=== PATIENT | female | born 1985 | race Caucasian/White ===

== ENCOUNTER 2016-05-29 08:09 | Emergency (ER) | payer BC ==
[2016-05-29 09:28] LABS: BASO # 0.1 K/mm3 (0.0-0.2); BASO % 2.2 % (0.0-1.0); EOS % 0.9 % (0.0-3.0); LARGE UNSTAINED CELL # 0.1 K/mm3 (0.0-0.4); LARGE UNSTAINED CELL % 2.7 % (0.0-4.0); LYMPH # 1.5 K/mm3 (1.5-4.5); LYMPH % 27.6 % (24.0-44.0); MEAN CORPUSCULAR HEMOGLOBIN 28.5 pg (27.0-33.0); MEAN CORPUSCULAR HGB CONC 32.8 g/dl (32.0-36.5); MEAN CORPUSCULAR VOLUME 87.1 fl (80.0-96.0); MONO # 0.3 K/mm3 (0.0-0.8); NEUTROPHILS % 60.7 % (36.0-66.0); PLATELET COUNT, AUTOMATED 278 k/mm3 (150-450); RED CELL DISTRIBUTION WIDTH 13.1 % (11.5-14.5); WHITE BLOOD COUNT 4.9 K/mm3 (4.0-10.0)
[2016-05-29 09:41] LABS: CONTROL LINE HCG INT CTR LINE PRESENT
[2016-05-29 09:43] LABS: ANION GAP 8 MEQ/L (8-16); BLOOD UREA NITROGEN 9 MG/DL (7-18); CALCIUM LEVEL 8.2 MG/DL (8.5-10.1); CARBON DIOXIDE LEVEL 27 MEQ/L (21-32); CHLORIDE LEVEL 106 MEQ/L (98-107); CREATININE FOR GFR 0.58 MG/DL (0.55-1.02); GLOMERULAR FILTRATION RATE > 60.0 (>60); GLUCOSE, FASTING 87 MG/DL (70-105); POTASSIUM SERUM 3.9 MEQ/L (3.5-5.1); SODIUM LEVEL 141 MEQ/L (136-145)
[2016-05-29 10:17] LABS: HCG, SERUM QUANTITATIVE 2187 MIU/ML
--- NOTE | 2016-05-29 10:48 | REP ---
EMERGENCY FIRST TRIMESTER OBSTETRIC SONOGRAPHY: HISTORY: Vaginal bleeding. Transvaginal and transabdominal scanning are performed. FINDINGS: A retroverted empty uterus is seen with dimensions of 6.5 x 3.9 x 5.1 cm. Endometrial echo measures 0.4 cm thick. No intrauterine gestational sac is seen. There is a trace of anechoic fluid in the cul-de-sac and adjacent right ovary. The right ovary measures 3.4 x 2.0 x 2.8 cm. It shows normal Doppler flow with resistive index 0.55. No adnexal mass is seen on the right. The left ovary measures 4.8 x 2.1 x 3.9 cm. Its Doppler flow is intact, resistive index 0.63. There is a hypoechoic cyst in the left ovary 1.9 x 1.8 x 1.4 cm. IMPRESSION: Nonspecific sonographic findings: Trace of free fluid in the cul-de-sac. No intrauterine gestational sac. No adnexal mass seen. Clinical and possibly sonographic followup recommended. Signed by Salvador Acosta MD 05/29/2016 01:18 P
--- NOTE | 2016-05-29 11:13 | EDDOCDS ---
Physician Documentation [facility] Name: Mary Neal Age: 30 yrs Sex: Female : 1985 Arrival Date: 05/29/2016 Time: 08:09 Bed 13 Private MD: Disposition: 05/29/16 10:53 Discharged to Home/Self Care. Impression: Threatened . - Condition is Stable. - Discharge Instructions: Threatened Miscarriage. - Medication Reconciliation, Local Pharmacy Hours form. - Follow up: Brendan Finn; When: As previously arranged; Reason: Recheck today's complaints, Continuance of care. - Problem is new. - Symptoms are unchanged. - Notes: You were evaluated in the emergency department for vaginal bleeding. A test was positive. A quantitative b-hCG reported a value of 2187. At time of discharge you have been provided a laboratory order to have the quantitative b-hCG repeated in 48-hours at 9:14am on , 05/31/2016. Your laboratory results reported no acute changes. An ultrasound reported no intrauterine gestational sac. Please call Dr. Finn's office at your soonest convenience and speak with a nurse to arrange a sooner appointment. Keep your appointment with Dr. Finn's office as previously arranged. If your pain worsens or does not improve and/or if your vaginal bleeding persists or gets worse please do not hesitate to return to the ED. Historical: - Allergies: PENICILLINS; - Home Meds: 1. Oral daily - PMHx: fertility treatments; - PSHx: Gastric Bypass (2012); - Social history: Smoking status: Patient states former smoker of tobacco. No barriers to communication noted, The patient speaks fluent Japanese, Speaks appropriately for age. - Family history: Not pertinent. - : The pt / caregiver states he / she is not on anticoagulants. Home medication list is obtained from the patient. - Exposure Risk Screening:: None identified. 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 3 in. (160.02 cm); 11:07 BP 107 / 66; Pulse 54; Resp 18; Temp 99.2(O); Pulse Ox 99% on R/A; Pain 0/10; ck1 08:23 Body Mass Index 31.18 (79.83 kg, 160.02 cm) kr3 MDM: 08:36 Set up pelvic ordered. jo4 08:37 Wet Prep Ordered. EDMS 09:03 UA Ordered. EDMS 09:03 CBC with Diff Ordered. EDMS 09:03 BMP Ordered. EDMS 09:03 HCG,Serum Qualitative Ordered. EDMS 09:04 Chlamydia & GC Amplification Ordered. EDMS 09:16 Rh Only Ordered. EDMS 09:36 UA Reviewed. sd1 09:36 CBC with Diff Reviewed. sd1 09:36 Wet Prep Reviewed. sd1 09:36 Rh Only Reviewed. sd1 09:44 BMP Reviewed. sd1 09:44 HCG,Serum Qualitative Reviewed. sd1 09:47 Ultrasound 1st Trimester Ordered. EDMS 09:51 HCG, SERUM QUANTITATIVE Ordered. EDMS 09:55 BMP Reviewed. sd1 09:55 HCG,Serum Qualitative Reviewed. sd1 10:21 DUPLEX SCAN LIMITED (DOPPLER) Ordered. EDMS 10:21 TRANSVAGINAL US Ordered. EDMS 10:22 HCG, SERUM QUANTITATIVE Reviewed. jo4 11:04 [facility] Payment Agreement was scanned into [employer] and attached to record. jp5 11:04 Financial registration complete. jp5 Signatures: Dispatcher [facility] Sofia Nino MD MD sd1 Phyllis Hernandez RN RN ck1 Tiffany Drew,RN RN kr3 Michael Saenz jp5 Mily Gaitan DO DO jo4 The chart was reviewed and I authenticate all verbal orders and agree with the evaluation and treatment provided.Corrections: (The following items were deleted from the chart) 09:50 09:45 HCG, SERUM QUANTITATIVE+LAB ordered. EDCO EDMS Attachments: 11:04 [facility] Payment Agreement jp5 MTDD
--- NOTE | 2016-05-29 11:13 | EDDOCDS ---
Nurse's Notes [facility] Name: Mary Neal Age: 30 yrs Sex: Female : 1985 Arrival Date: 05/29/2016 Time: 08:09 Bed 13 Private MD: Diagnosis: Threatened Presentation: 05/29 08:21 Presenting complaint: Patient states: may be having miscarriage. reports vaginal kr3 bleeding for 1 month, today increase bleeding. Adult Sepsis Screening: The patient does not have new or worsening altered mentation. Patient's respiratory rate is less than 22. Systolic blood pressure is greater than 100. Patient has a qSOFA score of 0- Negative Sepsis Screen. Suicide/Homicide risk assessment- the patient denies having any suicidal and/or homicidal ideations and does not present with any other emotional, behavioral or mental health complaints. Status: Patient is not a manager customer service or dependent. Transition of care: patient was not received from another setting of care. 08:21 Acuity: BHAVANA Level 3 kr3 08:21 Method Of Arrival: Walkin/Carried/Asstd kr3 Triage Assessment: 08:23 General: Appears in no apparent distress, comfortable, Behavior is cooperative. Pain: kr3 Pain currently is 7 out of 10 on a pain scale. Quality of pain is described as crampy. HIV screening NA for this visit Offered previously. Neurological: No deficits noted. Respiratory: Respiratory effort is even, unlabored. : Reports vaginal bleeding that is light flow. Derm: Skin is pink, warm & dry. 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 Oral daily - PMHx: fertility treatments; - PSHx: Gastric Bypass (2012); - Social history: Smoking status: Patient states former smoker of tobacco. No barriers to communication noted, The patient speaks fluent Irish, Speaks appropriately for age. - Family history: Not pertinent. - : The pt / caregiver states he / she is not on anticoagulants. Home medication list is obtained from the patient. - Exposure Risk Screening:: None identified. Screenin:03 Screening information is obtained from the patient. Fall risk: No risks identified. ck1 Assistance ADL's: requires no assistance with activities of daily living. Abuse/DV Screen: The patient / caregiver reports he/she is: not in a situation that causes fear, pain or injury. Nutritional screening: No deficits noted. Advance Directives: Currently, there is no health care proxy. home support is adequate. Assessment: 09:03 General: Appears in no apparent distress, comfortable, Behavior is appropriate for age, ck1 cooperative. Pain: Denies pain. Respiratory: No deficits noted. : Reports vaginal bleeding that is light flow Denies burning with urination. Derm: Skin is pink, warm & dry. 10:00 Reassessment: Patient appears in no apparent distress at this time. ck1 11:11 General: Appears in no apparent distress, comfortable, Behavior is appropriate for age, ck1 cooperative. Pain: Denies pain. Neurological: Level of Consciousness is awake, alert, obeys commands, Oriented to person, place, time. Respiratory: Respiratory effort is unlabored, Respiratory pattern is regular, symmetrical. : Reports vaginal bleeding that is light flow. Derm: Skin is pink, warm & dry. Vital Signs: 08:23 BP 123 / 69; Pulse 94; Resp 16; Temp 97.6; Pulse Ox 98% on R/A; Weight 79.83 kg (R); kr3 Height 5 ft. 3 in. (160.02 cm); 11:07 BP 107 / 66; Pulse 54; Resp 18; Temp 99.2(O); Pulse Ox 99% on R/A; Pain 0/10; ck1 08:23 Body Mass Index 31.18 (79.83 kg, 160.02 cm) kr3 Vitals: 08:23 Log In Time: May 29, 2016 at 08:06. kr3 ED Course: 08:11 Patient visited by Maik Gutierrez. mm15 08:11 Patient moved to Waiting mm15 08:22 Triage Initiated kr3 08:26 Janell Siegel,RN is Primary Nurse. kr3 08:26 Phyllis Hernandez,LANCE is Primary Nurse. kr3 08:26 Patient moved to 13 kr3 08:27 [facility] jo4 08:27 Sofia Nino MD is Attending Physician. jo4 08:37 Patient visited by Mily Gaitan DO. jo4 08:37 Patient visited by Mily Gaitan DO. jo4 09:03 Patient visited by Phyllis Hernandez,LANCE. ck1 09:04 The patient / caregiver is instructed regarding the plan of care and ED course. ck1 09:13 Primary Nurse role handed off by Janell Siegel,RN kr3 09:18 Patient visited by Phyllis Hernandez,RN. ck1 09:18 Rh Only Sent. ck1 09:18 Chlamydia & GC Amplification Sent. ck1 09:18 HCG,Serum Qualitative Sent. ck1 09:18 BMP Sent. ck1 09:18 CBC with Diff Sent. ck1 09:18 UA Sent. ck1 09:18 Wet Prep Sent. ck1 09:18 Assist provider with pelvic exam: Set up pelvic tray. Specimens sent to lab. Performed ck1 by Mily Gaitan DO Patient tolerated well. 09:51 Patient visited by Phyllis Hernandez,LANCE. ck1 09:51 HCG, SERUM QUANTITATIVE Sent. ck1 09:52 Patient moved to Ultrasound en 10:17 Patient moved to 13 en 10:27 Patient visited by Phyllis Hernandez,LANCE. ck1 10:53 Brendan Finn MD is Referral Physician. jo4 11:04 [facility] Payment Agreement was scanned into [employer] and attached to record. jp5 11:04 Ultrasound 1st Trimester Returned. EDMS 11:07 No IV's were initiated during this patient's visit. ck1 Order Results: Lab Order: Wet Prep; SPEC'M 05/29/16 09:14 Test: WET PREP; Value: WET PREP RESULT; Status: F Test: WET PREP; Value: FEW EPITHELIAL CELLS PRESENT; Status: F Test: WET PREP; Value: FEW RBC; Status: F Test: WET PREP; Value: MODERATE SHORT RODS PRESENT; Status: F Lab Order: UA; SPEC'M 05/29/16 09:14 Test: APPEARANCE, URINE; Value: CLEAR; Range: CLEAR; Status: F Test: COLOR, URINE; Value: YELLOW; Range: YELLOW; Status: F Test: PH,URINE; Value: 7.0; Range: 5.0-9.0; Units: UNITS; Status: F Test: SPECIFIC GRAVITY URINE AUTO; Value: 1.011; Range: 1.002-1.035; Status: F Test: PROTEIN, URINE AUTO; Value: NEGATIVE; Range: NEGATIVE; Units: mg/dL; Status: F Test: GLUCOSE, URINE (UA) AUTO; Value: NEGATIVE; Range: NEGATIVE; Units: mg/dL; Status: F Test: KETONE, URINE AUTO; Value: NEGATIVE; Range: NEGATIVE; Units: mg/dL; Status: F Test: UROBILINOGEN, URINE AUTO; Value: 0.2; Range: 0.0-2.0; Units: mg/dL; Status: F Test: BILIRUBIN, URINE AUTO; Value: NEGATIVE; Range: NEGATIVE; Status: F Test: NITRITE, URINE AUTO; Value: NEGATIVE; Range: NEGATIVE; Status: F Test: LEUKOCYTE ESTERASE, URINE AUTO; Value: NEGATIVE; Range: NEGATIVE; Status: F Test: BLOOD, URINE BLOOD; Value: 2+; Range: NEGATIVE; Abnormal: Above high normal; Status: F Test: WBC, URINE AUTO; Value: 1; Range: 0-3; Units: /HPF; Status: F Test: RBC, URINE AUTO; Value: 5; Range: 0-3; Abnormal: Above high normal; Units: /HPF; Status: F Test: BACTERIA, URINE AUTO; Value: 1+; Range: NEGATIVE; Abnormal: Above high normal; Status: F Test: SQUAMOUS EPITHELIAL CELL UR AU; Value: 3; Range: 0-6; Units: /HPF; Status: F Test: MUCUS, URINE; Value: SMALL; Range: NEGATIVE; Status: F Test: HYALINE CAST, URINE AUTO; Value: 0; Range: 0-1; Units: /LPF; Status: F Lab Order: CBC with Diff; SPEC'M 05/29/16 09:14 Test: WHITE BLOOD COUNT; Value: 4.9; Range: 4.0-10.0; Units: K/mm3; Status: F Test: RED BLOOD COUNT; Value: 4.53; Range: 4.00-5.40; Units: M/mm3; Status: F Test: HEMOGLOBIN; Value: 12.9; Range: 12.0-16.0; Units: g/dl; Status: F Test: HEMATOCRIT; Value: 39.5; Range: 36.0-47.0; Units: %; Status: F Test: MEAN CORPUSCULAR VOLUME; Value: 87.1; Range: 80.0-96.0; Units: fl; Status: F Test: MEAN CORPUSCULAR HEMOGLOBIN; Value: 28.5; Range: 27.0-33.0; Units: pg; Status: F Test: MEAN CORPUSCULAR HGB CONC; Value: 32.8; Range: 32.0-36.5; Units: g/dl; Status: F Test: RED CELL DISTRIBUTION WIDTH; Value: 13.1; Range: 11.5-14.5; Units: %; Status: F Test: PLATELET COUNT, AUTOMATED; Value: 278; Range: 150-450; Units: k/mm3; Status: F Test: NEUTROPHILS %; Value: 60.7; Range: 36.0-66.0; Units: %; Status: F Test: LYMPH %; Value: 27.6; Range: 24.0-44.0; Units: %; Status: F Test: MONO %; Value: 6.0; Range: 0.0-5.0; Abnormal: Above high normal; Units: %; Status: F Test: EOS %; Value: 0.9; Range: 0.0-3.0; Units: %; Status: F Test: BASO %; Value: 2.2; Range: 0.0-1.0; Abnormal: Above high normal; Units: %; Status: F Test: LARGE UNSTAINED CELL %; Value: 2.7; Range: 0.0-4.0; Units: %; Status: F Test: NEUTROPHILS #; Value: 3.0; Range: 1.8-7.7; Units: K/mm3; Status: F Test: LYMPH #; Value: 1.5; Range: 1.5-4.5; Units: K/mm3; Status: F Test: MONO #; Value: 0.3; Range: 0.0-0.8; Units: K/mm3; Status: F Test: EOS #; Value: 0.0; Range: 0.0-0.50; Units: K/mm3; Status: F Test: BASO #; Value: 0.1; Range: 0.0-0.2; Units: K/mm3; Status: F Test: LARGE UNSTAINED CELL #; Value: 0.1; Range: 0.0-0.4; Units: K/mm3; Status: F Lab Order: [facility]; SPEC05/29/16 09:14 Test: GLUCOSE, FASTING; Value: 87; Range: 70-105; Units: MG/DL; Status: F Test: BLOOD UREA NITROGEN; Value: 9; Range: 7-18; Units: MG/DL; Status: F Test: CREATININE FOR GFR; Value: 0.58; Range: 0.55-1.02; Units: MG/DL; Status: F Test: GLOMERULAR FILTRATION RATE; Value: > 60.0; Range: >60; Status: F Test: SODIUM LEVEL; Value: 141; Range: 136-145; Units: MEQ/L; Status: F Test: POTASSIUM SERUM; Value: 3.9; Range: 3.5-5.1; Units: MEQ/L; Status: F Test: CHLORIDE LEVEL; Value: 106; Range: 98-107; Units: MEQ/L; Status: F Test: CARBON DIOXIDE LEVEL; Value: 27; Range: 21-32; Units: MEQ/L; Status: F Test: ANION GAP; Value: 8; Range: 8-16; Units: MEQ/L; Status: F Test: CALCIUM LEVEL; Value: 8.2; Range: 8.5-10.1; Abnormal: Below low normal; Units: MG/DL; Status: F Test Note: ; Units are mL/min/1.73 m2 Chronic Kidney Disease Staging per NKF: Stage I & II GFR >=60 Normal to Mildly Decreased Stage III GFR 30-59 Moderately Decreased Stage IV GFR 15-29 Severely Decreased Stage V GFR <15 Very Little GFR Left ESRD GFR <15 on SEASONAL SALES ASSOCIATE Lab Order: HCG,Serum Qualitative; 05/29/16 09:14 Test: HCG, SERUM QUALITATIVE; Value: POSITIVE; Range: NEGATIVE; Abnormal: Abnormal; Status: F Lab Order: Rh Only; 05/29/16 09:14 Test: RH; Value: POSITIVE; Status: F Lab Order: HCG, SERUM QUANTITATIVE; 05/29/16 09:14 Test: HCG, SERUM QUANTITATIVE; Value: 2187; Units: MIU/ML; Status: F Test Note: ; GESTATIONAL AGE APPROXIMATE HCG RANGE (MIU/ML) 0.2-1 WEEK 5-50 1-2 WEEKS 50-500 2-3 WEEKS 100-5,000 3-4 WEEKS 500-10,000 4-5 WEEKS 1,000-50,000 5-6 WEEKS 10,000-100,000 6-8 WEEKS 15,000-200,000 2-3 MONTHS 10,000-100,000 NON FEMALES LESS THAN 3.0 Patient samples may contain human heterophilic antibodies that could react with immunoassays to give falsely elevated or depressed results. This assay has been designed to minimize interference from heterophilic antibodies. Elevated hCG levels have also been associated with trophoblastic disease and nontrophoblastic neoplasms. The possibility of having these diseases should be considered before a diagnosis of is made. This test is not intended for use as a surrogate marker for aiding in the diagnosis or monitoring the treatment of cancer patients. Siemens BigString methodology. Radiology Order: Ultrasound 1st Trimester Test: Ultrasound 1st Trimester REASON FOR EXAMINATION: Bleeding; EMERGENCY FIRST TRIMESTER OBSTETRIC SONOGRAPHY:; ; HISTORY: Vaginal bleeding.; ; Transvaginal and transabdominal scanning are performed.; ; FINDINGS: A retroverted empty uterus is seen with dimensions of 6.5 x 3.9 x 5.1; cm. Endometrial echo measures 0.4 cm thick. No intrauterine gestational sac is; seen. There is a trace of anechoic fluid in the cul-de-sac and adjacent right; ovary. The right ovary measures 3.4 x 2.0 x 2.8 cm. It shows normal Doppler; flow with resistive index 0.55. No adnexal mass is seen on the right.; ; The left ovary measures 4.8 x 2.1 x 3.9 cm. Its Doppler flow is intact,; resistive index 0.63. There is a hypoechoic cyst in the left ovary 1.9 x 1.8 x; 1.4 cm.; ; IMPRESSION:; Nonspecific sonographic findings: Trace of free fluid in the cul-de-sac. No; intrauterine gestational sac. No adnexal mass seen. Clinical and possibly; sonographic followup recommended.; ; ; ; ; Unreviewed; Outcome: 10:07 Ultrasound Study completed. ck1 10:53 Discharge ordered by Provider. jo4 11:07 Discharge Assessment: Patient awake, alert and oriented x 3. No cognitive and/or ck1 functional deficits noted. Patient verbalized understanding of disposition instructions. patient administered narcotics - no. The following High Risk Discharge criteria are identified: None. Discharged to home ambulatory, with significant other. Condition: stable. Property :Personal belongings accompany Pt. 11:11 Discharge instructions given to patient, Instructed on discharge instructions, follow ck1 up and referral plans. medication usage, Demonstrated understanding of instructions, medications, Pt was receptive of discharge instructions/ teaching. Prescriptions given X 1. 11:11 Patient left the ED. ck1 Signatures: Dispatcher [employer] EDCT Phyllis HernandezRN RN ck1 Tiffany Drew,RN RN kr3 Maik Gutierrez mm15 Aundrea Merino Jennalee jp5 Oosthuizen, Jane, DO DO jo4 KIRAN
[2016-05-29] MEDS ORDERED: metroNIDAZOLE/NACL 500MG(5MG/ML)100 ML BAG (S0030) As Ordered ONE (13:12)
--- NOTE | 2016-05-31 12:13 | EDDOCDS ---
Nurse's Notes [facility] Name: Mary Neal Age: 30 yrs Sex: Female : 1985 Arrival Date: 05/29/2016 Time: 08:09 Bed 13 Private MD: Diagnosis: Threatened Presentation: 05/29 08:21 Presenting complaint: Patient states: may be having miscarriage. reports vaginal kr3 bleeding for 1 month, today increase bleeding. Adult Sepsis Screening: The patient does not have new or worsening altered mentation. Patient's respiratory rate is less than 22. Systolic blood pressure is greater than 100. Patient has a qSOFA score of 0- Negative Sepsis Screen. Suicide/Homicide risk assessment- the patient denies having any suicidal and/or homicidal ideations and does not present with any other emotional, behavioral or mental health complaints. 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 Transition of care: patient was not received from another setting of care. 08:21 Acuity: BHAVANA Level 3 kr3 08:21 Method Of Arrival: Walkin/Carried/Asstd kr3 Triage Assessment: 08:23 General: Appears in no apparent distress, comfortable, Behavior is cooperative. Pain: kr3 Pain currently is 7 out of 10 on a pain scale. Quality of pain is described as crampy. HIV screening NA for this visit Offered previously. Neurological: No deficits noted. Respiratory: Respiratory effort is even, unlabored. : Reports vaginal bleeding that is light flow. Derm: Skin is pink, warm & dry. 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 Oral daily - PMHx: fertility treatments; - PSHx: Gastric Bypass (2012); - Social history: Smoking status: Patient states former smoker of tobacco. No barriers to communication noted, The patient speaks fluent Macedonian, Speaks appropriately for age. - Family history: Not pertinent. - : The pt / caregiver states he / she is not on anticoagulants. Home medication list is obtained from the patient. - Exposure Risk Screening:: None identified. Screenin:03 Screening information is obtained from the patient. Fall risk: No risks identified. ck1 Assistance ADL's: requires no assistance with activities of daily living. Abuse/DV Screen: The patient / caregiver reports he/she is: not in a situation that causes fear, pain or injury. Nutritional screening: No deficits noted. Advance Directives: Currently, there is no health care proxy. home support is adequate. Assessment: 09:03 General: Appears in no apparent distress, comfortable, Behavior is appropriate for age, ck1 cooperative. Pain: Denies pain. Respiratory: No deficits noted. : Reports vaginal bleeding that is light flow Denies burning with urination. Derm: Skin is pink, warm & dry. 10:00 Reassessment: Patient appears in no apparent distress at this time. ck1 11:11 General: Appears in no apparent distress, comfortable, Behavior is appropriate for age, ck1 cooperative. Pain: Denies pain. Neurological: Level of Consciousness is awake, alert, obeys commands, Oriented to person, place, time. Respiratory: Respiratory effort is unlabored, Respiratory pattern is regular, symmetrical. : Reports vaginal bleeding that is light flow. Derm: Skin is pink, warm & dry. Vital Signs: 08:23 BP 123 / 69; Pulse 94; Resp 16; Temp 97.6; Pulse Ox 98% on R/A; Weight 79.83 kg (R); kr3 Height 5 ft. 3 in. (160.02 cm); 11:07 BP 107 / 66; Pulse 54; Resp 18; Temp 99.2(O); Pulse Ox 99% on R/A; Pain 0/10; ck1 08:23 Body Mass Index 31.18 (79.83 kg, 160.02 cm) kr3 Vitals: 08:23 Log In Time: May 29, 2016 at 08:06. kr3 ED Course: 08:11 Patient visited by Maik Gutierrez. mm15 08:11 Patient moved to Waiting mm15 08:22 Triage Initiated kr3 08:26 Janell Siegel,RN is Primary Nurse. kr3 08:26 Phyllis Hernandez,LANCE is Primary Nurse. kr3 08:26 Patient moved to 13 kr3 08:27 [facility] jo4 08:27 Sofia Nino MD is Attending Physician. jo4 08:37 Patient visited by Mily Gaitan DO. jo4 08:37 Patient visited by Mily Gaitan DO. jo4 09:03 Patient visited by Phyllis Hernandez,LANCE. ck1 09:04 The patient / caregiver is instructed regarding the plan of care and ED course. ck1 09:13 Primary Nurse role handed off by Janell Siegel,RN kr3 09:18 Patient visited by Phyllis Hernandez,RN. ck1 09:18 Rh Only Sent. ck1 09:18 Chlamydia & GC Amplification Sent. ck1 09:18 HCG,Serum Qualitative Sent. ck1 09:18 BMP Sent. ck1 09:18 CBC with Diff Sent. ck1 09:18 UA Sent. ck1 09:18 Wet Prep Sent. ck1 09:18 Assist provider with pelvic exam: Set up pelvic tray. Specimens sent to lab. Performed ck1 by Mily Gaitan DO Patient tolerated well. 09:51 Patient visited by Phyllis Hernandez,LANCE. ck1 09:51 HCG, SERUM QUANTITATIVE Sent. ck1 09:52 Patient moved to Ultrasound en 10:17 Patient moved to 13 en 10:27 Patient visited by Phyllis Hernandez,LANCE. ck1 10:53 Brendan Finn MD is Referral Physician. jo4 11:04 [facility] Payment Agreement was scanned into [employer] and attached to record. jp5 11:04 Ultrasound 1st Trimester Returned. EDMS 11:07 No IV's were initiated during this patient's visit. ck1 05/30 11:28 T-Sheet-- Draft Copy was scanned into [employer] and attached to record. gb Order Results: Lab Order: Wet Prep; SPEC'M 05/29/16 09:14 Test: WET PREP; Value: WET PREP RESULT; Status: F Test: WET PREP; Value: FEW EPITHELIAL CELLS PRESENT; Status: F Test: WET PREP; Value: FEW RBC; Status: F Test: WET PREP; Value: MODERATE SHORT RODS PRESENT; Status: F Lab Order: UA; SPEC'M 05/29/16 09:14 Test: APPEARANCE, URINE; Value: CLEAR; Range: CLEAR; Status: F Test: COLOR, URINE; Value: YELLOW; Range: YELLOW; Status: F Test: PH,URINE; Value: 7.0; Range: 5.0-9.0; Units: UNITS; Status: F Test: SPECIFIC GRAVITY URINE AUTO; Value: 1.011; Range: 1.002-1.035; Status: F Test: PROTEIN, URINE AUTO; Value: NEGATIVE; Range: NEGATIVE; Units: mg/dL; Status: F Test: GLUCOSE, URINE (UA) AUTO; Value: NEGATIVE; Range: NEGATIVE; Units: mg/dL; Status: F Test: KETONE, URINE AUTO; Value: NEGATIVE; Range: NEGATIVE; Units: mg/dL; Status: F Test: UROBILINOGEN, URINE AUTO; Value: 0.2; Range: 0.0-2.0; Units: mg/dL; Status: F Test: BILIRUBIN, URINE AUTO; Value: NEGATIVE; Range: NEGATIVE; Status: F Test: NITRITE, URINE AUTO; Value: NEGATIVE; Range: NEGATIVE; Status: F Test: LEUKOCYTE ESTERASE, URINE AUTO; Value: NEGATIVE; Range: NEGATIVE; Status: F Test: BLOOD, URINE BLOOD; Value: 2+; Range: NEGATIVE; Abnormal: Above high normal; Status: F Test: WBC, URINE AUTO; Value: 1; Range: 0-3; Units: /HPF; Status: F Test: RBC, URINE AUTO; Value: 5; Range: 0-3; Abnormal: Above high normal; Units: /HPF; Status: F Test: BACTERIA, URINE AUTO; Value: 1+; Range: NEGATIVE; Abnormal: Above high normal; Status: F Test: SQUAMOUS EPITHELIAL CELL UR AU; Value: 3; Range: 0-6; Units: /HPF; Status: F Test: MUCUS, URINE; Value: SMALL; Range: NEGATIVE; Status: F Test: HYALINE CAST, URINE AUTO; Value: 0; Range: 0-1; Units: /LPF; Status: F Lab Order: CBC with Diff; SPEC'M 05/29/16 09:14 Test: WHITE BLOOD COUNT; Value: 4.9; Range: 4.0-10.0; Units: K/mm3; Status: F Test: RED BLOOD COUNT; Value: 4.53; Range: 4.00-5.40; Units: M/mm3; Status: F Test: HEMOGLOBIN; Value: 12.9; Range: 12.0-16.0; Units: g/dl; Status: F Test: HEMATOCRIT; Value: 39.5; Range: 36.0-47.0; Units: %; Status: F Test: MEAN CORPUSCULAR VOLUME; Value: 87.1; Range: 80.0-96.0; Units: fl; Status: F Test: MEAN CORPUSCULAR HEMOGLOBIN; Value: 28.5; Range: 27.0-33.0; Units: pg; Status: F Test: MEAN CORPUSCULAR HGB CONC; Value: 32.8; Range: 32.0-36.5; Units: g/dl; Status: F Test: RED CELL DISTRIBUTION WIDTH; Value: 13.1; Range: 11.5-14.5; Units: %; Status: F Test: PLATELET COUNT, AUTOMATED; Value: 278; Range: 150-450; Units: k/mm3; Status: F Test: NEUTROPHILS %; Value: 60.7; Range: 36.0-66.0; Units: %; Status: F Test: LYMPH %; Value: 27.6; Range: 24.0-44.0; Units: %; Status: F Test: MONO %; Value: 6.0; Range: 0.0-5.0; Abnormal: Above high normal; Units: %; Status: F Test: EOS %; Value: 0.9; Range: 0.0-3.0; Units: %; Status: F Test: BASO %; Value: 2.2; Range: 0.0-1.0; Abnormal: Above high normal; Units: %; Status: F Test: LARGE UNSTAINED CELL %; Value: 2.7; Range: 0.0-4.0; Units: %; Status: F Test: NEUTROPHILS #; Value: 3.0; Range: 1.8-7.7; Units: K/mm3; Status: F Test: LYMPH #; Value: 1.5; Range: 1.5-4.5; Units: K/mm3; Status: F Test: MONO #; Value: 0.3; Range: 0.0-0.8; Units: K/mm3; Status: F Test: EOS #; Value: 0.0; Range: 0.0-0.50; Units: K/mm3; Status: F Test: BASO #; Value: 0.1; Range: 0.0-0.2; Units: K/mm3; Status: F Test: LARGE UNSTAINED CELL #; Value: 0.1; Range: 0.0-0.4; Units: K/mm3; Status: F Lab Order: BMP; SPEC'M 05/29/16 09:14 Test: GLUCOSE, FASTING; Value: 87; Range: 70-105; Units: MG/DL; Status: F Test: BLOOD UREA NITROGEN; Value: 9; Range: 7-18; Units: MG/DL; Status: F Test: CREATININE FOR GFR; Value: 0.58; Range: 0.55-1.02; Units: MG/DL; Status: F Test: GLOMERULAR FILTRATION RATE; Value: > 60.0; Range: >60; Status: F Test: SODIUM LEVEL; Value: 141; Range: 136-145; Units: MEQ/L; Status: F Test: POTASSIUM SERUM; Value: 3.9; Range: 3.5-5.1; Units: MEQ/L; Status: F Test: CHLORIDE LEVEL; Value: 106; Range: 98-107; Units: MEQ/L; Status: F Test: CARBON DIOXIDE LEVEL; Value: 27; Range: 21-32; Units: MEQ/L; Status: F Test: ANION GAP; Value: 8; Range: 8-16; Units: MEQ/L; Status: F Test: CALCIUM LEVEL; Value: 8.2; Range: 8.5-10.1; Abnormal: Below low normal; Units: MG/DL; Status: F Test Note: ; Units are mL/min/1.73 m2 Chronic Kidney Disease Staging per NKF: Stage I & II GFR >=60 Normal to Mildly Decreased Stage III GFR 30-59 Moderately Decreased Stage IV GFR 15-29 Severely Decreased Stage V GFR <15 Very Little GFR Left ESRD GFR <15 on GRADING CLERK Lab Order: HCG,Serum Qualitative; SPEC'M 05/29/16 09:14 Test: HCG, SERUM QUALITATIVE; Value: POSITIVE; Range: NEGATIVE; Abnormal: Abnormal; Status: F Lab Order: Chlamydia & GC Amplification; SPEC05/29/16 09:14 Test: CHLAMYDIA DNA AMPLIFICATION; Value: NEGATIVE; Range: NEGATIVE; Status: F Test: GC DNA AMPLIFICATION; Value: NEGATIVE; Range: NEGATIVE; Status: F Lab Order: Rh Only; SPEC'05/29/16 09:14 Test: RH; Value: POSITIVE; Status: F Lab Order: HCG, SERUM QUANTITATIVE; SPEC'M 05/29/16 09:14 Test: HCG, SERUM QUANTITATIVE; Value: 2187; Units: MIU/ML; Status: F Test Note: ; GESTATIONAL AGE APPROXIMATE HCG RANGE (MIU/ML) 0.2-1 WEEK 5-50 1-2 WEEKS 50-500 2-3 WEEKS 100-5,000 3-4 WEEKS 500-10,000 4-5 WEEKS 1,000-50,000 5-6 WEEKS 10,000-100,000 6-8 WEEKS 15,000-200,000 2-3 MONTHS 10,000-100,000 NON FEMALES LESS THAN 3.0 Patient samples may contain human heterophilic antibodies that could react with immunoassays to give falsely elevated or depressed results. This assay has been designed to minimize interference from heterophilic antibodies. Elevated hCG levels have also been associated with trophoblastic disease and nontrophoblastic neoplasms. The possibility of having these diseases should be considered before a diagnosis of is made. This test is not intended for use as a surrogate marker for aiding in the diagnosis or monitoring the treatment of cancer patients. [employer] methodology. Radiology Order: Ultrasound 1st Trimester Test: Ultrasound 1st Trimester REASON FOR EXAMINATION: Bleeding; EMERGENCY FIRST TRIMESTER OBSTETRIC SONOGRAPHY:; ; HISTORY: Vaginal bleeding.; ; Transvaginal and transabdominal scanning are performed.; ; FINDINGS: A retroverted empty uterus is seen with dimensions of 6.5 x 3.9 x 5.1; cm. Endometrial echo measures 0.4 cm thick. No intrauterine gestational sac is; seen. There is a trace of anechoic fluid in the cul-de-sac and adjacent right; ovary. The right ovary measures 3.4 x 2.0 x 2.8 cm. It shows normal Doppler; flow with resistive index 0.55. No adnexal mass is seen on the right.; ; The left ovary measures 4.8 x 2.1 x 3.9 cm. Its Doppler flow is intact,; resistive index 0.63. There is a hypoechoic cyst in the left ovary 1.9 x 1.8 x; 1.4 cm.; ; IMPRESSION: Nonspecific sonographic findings: Trace of free fluid in the; cul-de-sac. No intrauterine gestational sac. No adnexal mass seen. Clinical; and possibly sonographic followup recommended.; ; ; Signed by; Salvador Acosta MD 05/29/2016 01:18 P; Outcome: 05/29 10:07 Ultrasound Study completed. ck1 10:53 Discharge ordered by Provider. jo4 11:07 Discharge Assessment: Patient awake, alert and oriented x 3. No cognitive and/or ck1 functional deficits noted. Patient verbalized understanding of disposition instructions. patient administered narcotics - no. The following High Risk Discharge criteria are identified: None. Discharged to home ambulatory, with significant other. Condition: stable. Property :Personal belongings accompany Pt. 11:11 Discharge instructions given to patient, Instructed on discharge instructions, follow ck1 up and referral plans. medication usage, Demonstrated understanding of instructions, medications, Pt was receptive of discharge instructions/ teaching. Prescriptions given X 1. 11:11 Patient left the ED. ck1 Signatures: Dispatcher [employer] EDMS Bailey Alfaro, Reg Reg gb Phyllis HernandezRN RN ck1 Tiffany Drew,LANCE RN kr3 Maik Gutierrez mm15 Aundrea Merino Jennalee jp5 Mily Gaitan DO DO jo4 Chart Complete KIRAN
--- NOTE | 2016-05-31 12:13 | EDDOCDS ---
Physician Documentation [facility] Name: Mary Neal Age: 30 yrs Sex: Female : 1985 Arrival Date: 05/29/2016 Time: 08:09 Bed 13 Private MD: Disposition: 05/29 11:20 I have independently interviewed and examined the patient, and I agree with the sd1 investigation, diagnosis and treatment plan as documented by the Resident. Disposition: 05/29/16 10:53 Discharged to Home/Self Care. Impression: Threatened . - Condition is Stable. - Discharge Instructions: Threatened Miscarriage. - Medication Reconciliation, Local Pharmacy Hours form. - Follow up: Brendan Finn; When: As previously arranged; Reason: Recheck today's complaints, Continuance of care. - Problem is new. - Symptoms are unchanged. - Notes: You were evaluated in the emergency department for vaginal bleeding. A test was positive. A quantitative b-hCG reported a value of 2187. At time of discharge you have been provided a laboratory order to have the quantitative b-hCG repeated in 48-hours at 9:14am on , 05/31/2016. Your laboratory results reported no acute changes. An ultrasound reported no intrauterine gestational sac. Please call Dr. Finn's office at your soonest convenience and speak with a nurse to arrange a sooner appointment. Keep your appointment with Dr. Finn's office as previously arranged. If your pain worsens or does not improve and/or if your vaginal bleeding persists or gets worse please do not hesitate to return to the ED. Historical: - Allergies: PENICILLINS; - Home Meds: 1. Oral daily - PMHx: fertility treatments; - PSHx: Gastric Bypass (2012); - Social history: Smoking status: Patient states former smoker of tobacco. No barriers to communication noted, The patient speaks fluent Dutch, Speaks appropriately for age. - Family history: Not pertinent. - : The pt / caregiver states he / she is not on anticoagulants. Home medication list is obtained from the patient. - Exposure Risk Screening:: None identified. 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 3 in. (160.02 cm); 11:07 BP 107 / 66; Pulse 54; Resp 18; Temp 99.2(O); Pulse Ox 99% on R/A; Pain 0/10; ck1 08:23 Body Mass Index 31.18 (79.83 kg, 160.02 cm) kr3 MDM: 08:36 Set up pelvic ordered. jo4 08:37 Wet Prep Ordered. EDMS 09:03 UA Ordered. EDMS 09:03 CBC with Diff Ordered. EDMS 09:03 BMP Ordered. EDMS 09:03 HCG,Serum Qualitative Ordered. EDMS 09:04 Chlamydia & GC Amplification Ordered. EDMS 09:16 Rh Only Ordered. EDMS 09:36 UA Reviewed. sd1 09:36 CBC with Diff Reviewed. sd1 09:36 Wet Prep Reviewed. sd1 09:36 Rh Only Reviewed. sd1 09:44 BMP Reviewed. sd1 09:44 HCG,Serum Qualitative Reviewed. sd1 09:47 Ultrasound 1st Trimester Ordered. EDMS 09:51 HCG, SERUM QUANTITATIVE Ordered. EDMS 09:55 BMP Reviewed. sd1 09:55 HCG,Serum Qualitative Reviewed. sd1 10:21 DUPLEX SCAN LIMITED (DOPPLER) Ordered. EDMS 10:21 TRANSVAGINAL US Ordered. EDMS 10:22 HCG, SERUM QUANTITATIVE Reviewed. jo4 11:04 [facility] Payment Agreement was scanned into [employer] and attached to record. jp5 11:04 Financial registration complete. jp5 11:17 ED course: 30 yo female h/o fertility tmt last OOctober presents reporting vaginal sd1 bleeding no abdominal /pelvic pain ? exam well appearing in no distress abdomen entirely nontender no rebound no guarding U/S hemorrhagic cyst no IUP identified d/w OB close followup 48 hours repeat quant - d/w patient ectopic not ruled out and good return instructions patient understands and is comfortable with D/C. 05/30 11:28 T-Sheet-- Draft Copy was scanned into [employer] and attached to record. gb Signatures: Dispatcher [employer] Sofia Florez MD MD sd1 Bailey Alfaro, Reg Reg gb Phyllis HernandezRN RN ck1 Tiffany Drew,RN RN kr3 Michael Saenz jp5 Mily Gaitan DO DO jo4 The chart was reviewed and I authenticate all verbal orders and agree with the evaluation and treatment provided.Corrections: (The following items were deleted from the chart) 05/29 09:50 09:45 HCG, SERUM QUANTITATIVE+LAB ordered. EDMS EDMS Attachments: 11:04 [facility] Payment Agreement jp5 05/30 11:28 T-Sheet-- Draft Copy gb Chart Complete MTDD
--- NOTE | 2016-05-31 12:13 | EDDOCDS ---
Physician Documentation [facility] Name: Mary Neal Age: 30 yrs Sex: Female : 1985 Arrival Date: 05/29/2016 Time: 08:09 Bed 13 Private MD: Disposition: 05/29 11:20 I have independently interviewed and examined the patient, and I agree with the sd1 investigation, diagnosis and treatment plan as documented by the Resident. Disposition: 05/29/16 10:53 Discharged to Home/Self Care. Impression: Threatened . - Condition is Stable. - Discharge Instructions: Threatened Miscarriage. - Medication Reconciliation, Local Pharmacy Hours form. - Follow up: Brendan Finn; When: As previously arranged; Reason: Recheck today's complaints, Continuance of care. - Problem is new. - Symptoms are unchanged. - Notes: You were evaluated in the emergency department for vaginal bleeding. A test was positive. A quantitative b-hCG reported a value of 2187. At time of discharge you have been provided a laboratory order to have the quantitative b-hCG repeated in 48-hours at 9:14am on , 05/31/2016. Your laboratory results reported no acute changes. An ultrasound reported no intrauterine gestational sac. Please call Dr. Finn's office at your soonest convenience and speak with a nurse to arrange a sooner appointment. Keep your appointment with Dr. Finn's office as previously arranged. If your pain worsens or does not improve and/or if your vaginal bleeding persists or gets worse please do not hesitate to return to the ED. Historical: - Allergies: PENICILLINS; - Home Meds: 1. Oral daily - PMHx: fertility treatments; - PSHx: Gastric Bypass (2012); - Social history: Smoking status: Patient states former smoker of tobacco. No barriers to communication noted, The patient speaks fluent Czech, Speaks appropriately for age. - Family history: Not pertinent. - : The pt / caregiver states he / she is not on anticoagulants. Home medication list is obtained from the patient. - Exposure Risk Screening:: None identified. 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 3 in. (160.02 cm); 11:07 BP 107 / 66; Pulse 54; Resp 18; Temp 99.2(O); Pulse Ox 99% on R/A; Pain 0/10; ck1 08:23 Body Mass Index 31.18 (79.83 kg, 160.02 cm) kr3 MDM: 08:36 Set up pelvic ordered. jo4 08:37 Wet Prep Ordered. EDMS 09:03 UA Ordered. EDMS 09:03 CBC with Diff Ordered. EDMS 09:03 BMP Ordered. EDMS 09:03 HCG,Serum Qualitative Ordered. EDMS 09:04 Chlamydia & GC Amplification Ordered. EDMS 09:16 Rh Only Ordered. EDMS 09:36 UA Reviewed. sd1 09:36 CBC with Diff Reviewed. sd1 09:36 Wet Prep Reviewed. sd1 09:36 Rh Only Reviewed. sd1 09:44 BMP Reviewed. sd1 09:44 HCG,Serum Qualitative Reviewed. sd1 09:47 Ultrasound 1st Trimester Ordered. EDMS 09:51 HCG, SERUM QUANTITATIVE Ordered. EDMS 09:55 BMP Reviewed. sd1 09:55 HCG,Serum Qualitative Reviewed. sd1 10:21 DUPLEX SCAN LIMITED (DOPPLER) Ordered. EDMS 10:21 TRANSVAGINAL US Ordered. EDMS 10:22 HCG, SERUM QUANTITATIVE Reviewed. jo4 11:04 [facility] Payment Agreement was scanned into [employer] and attached to record. jp5 11:04 Financial registration complete. jp5 11:17 ED course: 30 yo female h/o fertility tmt last OOctober presents reporting vaginal sd1 bleeding no abdominal /pelvic pain ? exam well appearing in no distress abdomen entirely nontender no rebound no guarding U/S hemorrhagic cyst no IUP identified d/w OB close followup 48 hours repeat quant - d/w patient ectopic not ruled out and good return instructions patient understands and is comfortable with D/C. 05/30 11:28 T-Sheet-- Draft Copy was scanned into [employer] and attached to record. gb Signatures: Dispatcher [employer] Sofia Florez MD MD sd1 Bailey Alfaro, Reg Reg gb Phyllis HernandezRN RN ck1 Tiffany Drew,RN RN kr3 Michael Saenz jp5 Mily Gaitan DO DO jo4 The chart was reviewed and I authenticate all verbal orders and agree with the evaluation and treatment provided.Corrections: (The following items were deleted from the chart) 05/29 09:50 09:45 HCG, SERUM QUANTITATIVE+LAB ordered. EDMS EDMS Attachments: 11:04 [facility] Payment Agreement jp5 05/30 11:28 T-Sheet-- Draft Copy gb Chart Complete MTDD
== END 2016-05-29 11:11 | disposition home or self-care (01) ==
LOC: M ED 08:09
DX: O20.0 Threatened abortion (principal); Z3A.01 Less than 8 weeks gestation of pregnancy; O99.841 Bariatric surgery status complicating pregnancy, first trimester; Z88.0 Allergy status to penicillin; Z87.891 Personal history of nicotine dependence

== ENCOUNTER → 2016-05-31 | Outpatient (REF) | payer BC | LOC: M LABSMT 13:08 | PROVIDERS: ATTEND Emergency Medicine | DX: O20.0 Threatened abortion (principal) ==

== ENCOUNTER → 2016-06-01 | Outpatient (CLI) | payer BC | LOC: M LAB 09:48 | PROVIDERS: ATTEND Specialist | DX: N93.8 Other specified abnormal uterine and vaginal bleeding (principal) ==

== ENCOUNTER → 2016-06-05 | Outpatient (CLI) | payer BC | LOC: M WUC 16:35 | PROVIDERS: ATTEND Specialist | DX: O20.0 Threatened abortion (principal) ==

== ENCOUNTER 2016-06-06 17:05 | Emergency (ER) | payer BC ==
[~2016-06-06] VITALS: Ht 160 cm; Wt 81.7 kg
[2016-06-06 18:09] LABS: BASO % 0.3 % (0.0-1.0); EOS # 0.1 K/mm3 (0.0-0.50); EOS % 1.1 % (0.0-3.0); LARGE UNSTAINED CELL # 0.2 K/mm3 (0.0-0.4); LYMPH # 1.8 K/mm3 (1.5-4.5); LYMPH % 19.8 % (24.0-44.0); MEAN CORPUSCULAR HEMOGLOBIN 28.7 pg (27.0-33.0); MEAN CORPUSCULAR HGB CONC 32.9 g/dl (32.0-36.5); MEAN CORPUSCULAR VOLUME 87.4 fl (80.0-96.0); MONO # 0.5 K/mm3 (0.0-0.8); MONO % 5.8 % (0.0-5.0); NEUTROPHILS # 6.5 K/mm3 (1.8-7.7); NEUTROPHILS % 71.1 % (36.0-66.0); PLATELET COUNT, AUTOMATED 291 k/mm3 (150-450); RED CELL DISTRIBUTION WIDTH 12.3 % (11.5-14.5); WHITE BLOOD COUNT 9.2 K/mm3 (4.0-10.0)
[2016-06-06] MEDS ORDERED: METHOTREXATE 50MG/2ML VIAL (J9260) IM ONE (18:30)
[2016-06-06 18:43] LABS: ANION GAP 7 MEQ/L (8-16); BLOOD UREA NITROGEN 12 MG/DL (7-18); CALCIUM LEVEL 8.4 MG/DL (8.5-10.1); CARBON DIOXIDE LEVEL 27 MEQ/L (21-32); CHLORIDE LEVEL 109 MEQ/L (98-107); CREATININE FOR GFR 0.62 MG/DL (0.55-1.02); GLOMERULAR FILTRATION RATE > 60.0 (>60); GLUCOSE, FASTING 84 MG/DL (70-105); HCG, SERUM QUANTITATIVE 6326 MIU/ML; POTASSIUM SERUM 4.4 MEQ/L (3.5-5.1); SODIUM LEVEL 143 MEQ/L (136-145)
--- NOTE | 2016-06-06 19:51 | EDDOCDS ---
Physician Documentation [facility] Name: Mary Neal Age: 30 yrs Sex: Female : 1985 Arrival Date: 06/06/2016 Time: 17:05 Bed I5 / M5 Private MD: NO PRIMARY PHYSICIAN, . Disposition: 06/06/16 19:17 Discharged to Home/Self Care. Impression: Ectopic . - Condition is Stable. - Discharge Instructions: Methotrexate Treatment for an Ectopic . - Medication Reconciliation, Local Pharmacy Hours form. - Follow up: Brendan Winslow MD; When: As previously arranged; Reason: Recheck today's complaints, Continuance of care. - Problem is new. - Symptoms are unchanged. - Notes: follow up with Dr. Winslow's office as previously arranged. return to ER if you develop severe abdominal pain, fevers or worsening condition Historical: - Allergies: PENICILLINS; - Home Meds: 1. none - PMHx: fertility treatments; - PSHx: Gastric Bypass (2012); - Social history: Smoking status: Patient states former smoker of tobacco. No barriers to communication noted, The patient speaks fluent Albanian, Speaks appropriately for age. - Family history: Not pertinent. - : The pt / caregiver states he / she is not on anticoagulants. Home medication list is obtained from the patient. - Exposure Risk Screening:: None identified. 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 3 in. (160.02 cm) (R); Pain 0/10; 19:46 BP 116 / 79; Pulse 79; Resp 18; Temp 98.3(O); Pulse Ox 99% on R/A; Pain 0/10; js15 17:08 Body Mass Index 31.89 (81.65 kg, 160.02 cm) gr2 MDM: 17:47 Methotrexate (PF) 95 mg IM once ordered. dt4 17:48 CBC with Diff Ordered. EDMS 17:48 Basic Metabolic Profile Ordered. EDMS 17:48 Hcg, Serum Quantitative Ordered. EDMS 17:48 Type & Screen Ordered. EDMS 17:48 UA Ordered. EDMS 17:48 ED course: PT HAD NOT BEEN SEEN YET, CALLED AND SPOKE WITH DR. WINSLOW PRIOR TO PLACING dt4 ANY ORDERS. ADVISED THAT PT WAS DX WITH A LEFT ECTOPIC IN THE OFFICE AND WAS SENT HERE TODAY FOR METHOTREXATE INJECTION. ADVISED THE CONSENT FORM AND ORDER SHEET WITH CORRECT DOSE WAS WITH THE PT (PLEASE SEE PAPER CHART). ADVISED TO DRAW APPROPRIATE LABS, PER PROTOCOL AND THAT DR. ROBLEDO WOULD BE HERE ( HE IS CLIENT EXECUTIVE) IF OB IS NEEDED FOR ANYTHING DURING THIS VISIT. . 17:57 [facility] Payment Agreement was scanned into [employer] and attached to record. zo 18:20 Financial registration complete. zo 19:16 CBC with Diff Reviewed. ar2 19:16 Basic Metabolic Profile Reviewed. ar2 19:16 UA Reviewed. ar2 19:16 Hcg, Serum Quantitative Reviewed. ar2 19:16 Type & Screen Reviewed. ar2 Administered Medications: 19:03 Drug: Methotrexate (PF) 95 mg Route: IM; Site: right gluteus; k 19:47 Follow up: Response: No Adverse Reaction js15 Signatures: Dispatcher [employer] EDMS Dru JasonRN RN Eugenia BlandRN RN Aisha Castro Aaron, PA-C PA-C ar2 Marielena Holloway PA-C PA-C dt4 Yesica Seth RN RN js15 The chart was reviewed and I authenticate all verbal orders and agree with the evaluation and treatment provided.Attachments: 17:57 [facility] Payment Agreement zo MTDD
--- NOTE | 2016-06-06 19:51 | EDDOCDS ---
Nurse's Notes [facility] Name: Mary Neal Age: 30 yrs Sex: Female : 1985 Arrival Date: 06/06/2016 Time: 17:05 Bed I5 / M5 Private MD: NO PRIMARY PHYSICIAN, . Diagnosis: Ectopic Presentation: 06/06 17:19 Presenting complaint: Patient states: Was told today that she had an ectopic jo3 and Dr Finn sent her here to have a methotrexate injection. Risk factors: the patient reports no vaginal bleeding. Adult Sepsis Screening: The patient does not have new or worsening altered mentation. Patient's respiratory rate is less than 22. Systolic blood pressure is greater than 100. Patient has a qSOFA score of 0- Negative Sepsis Screen. Suicide/Homicide risk assessment- the patient denies having any suicidal and/or homicidal ideations and does not present with any other emotional, behavioral or mental health complaints. Status: Patient is not a card services specialist or dependent. Transition of care: patient was not received from another setting of care. 17:19 Acuity: BHAVANA Level 3 jo3 17:19 Method Of Arrival: Walkin/Carried/Asstd jo3 Triage Assessment: 17:22 General: Appears in no apparent distress, Behavior is appropriate for age, cooperative, jo3 pleasant. Pain: Denies pain. HIV screening NA for this visit Offered previously. Neurological: Level of Consciousness is awake, alert, Oriented to person, place, time. Respiratory: Airway is patent Respiratory effort is even, unlabored. Derm: Skin is pink, warm & dry. HOSPICE MUSIC THERAPY: 17:22 1, Full Term 0, Premature 0, 0, Living 0, LMP 04/09/2016 jo3 Historical: - Allergies: PENICILLINS; - Home Meds: 1. none - PMHx: fertility treatments; - PSHx: Gastric Bypass (2012); - Social history: Smoking status: Patient states former smoker of tobacco. No barriers to communication noted, The patient speaks fluent [place] Citizen, Speaks appropriately for age. - Family history: Not pertinent. - : The pt / caregiver states he / she is not on anticoagulants. Home medication list is obtained from the patient. - Exposure Risk Screening:: None identified. Screenin:09 Screening information is obtained from the patient. Fall risk: No risks identified. jmk Assistance ADL's: requires no assistance with activities of daily living. Abuse/DV Screen: The patient / caregiver reports he/she is: not in a situation that causes fear, pain or injury. Nutritional screening: No deficits noted. Advance Directives: Currently, there is no health care proxy. There is no active DNR order. There is no living will. 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 home support is adequate. Assessment: 18:07 General: Appears skin warm and dry color satisfactory. moist pink oral mucosa. without jmk abd pain. denies vaginal bleeding. easily accommodates position changes and ambulation. 19:03 General: Appears medicated with methotrexate to divided doses to bilateral glut. max.. jmk 19:47 General: Appears in no apparent distress, Behavior is appropriate for age, cooperative. js15 Neurological: Level of Consciousness is awake, alert, obeys commands, Oriented to person, place, time. Respiratory: Airway is patent Respiratory effort is even, unlabored, Respiratory pattern is regular, symmetrical. GI: Abdomen is non- distended. Derm: Skin is pink, warm & dry. Vital Signs: 17:08 BP 109 / 68; Pulse 95; Resp 18 S; Temp 98.0(O); Pulse Ox 99% on R/A; Weight 81.65 kg gr2 (R); Height 5 ft. 3 in. (160.02 cm) (R); Pain 0/10; 19:46 BP 116 / 79; Pulse 79; Resp 18; Temp 98.3(O); Pulse Ox 99% on R/A; Pain 0/10; js15 17:08 Body Mass Index 31.89 (81.65 kg, 160.02 cm) gr2 Vitals: 17:08 Log In Time: June 06, 2016 at 17:08. gr2 ED Course: 17:07 Patient visited by Florence Garrido. gr2 17:07 Patient moved to Waiting gr2 17:08 NO PRIMARY PHYSICIAN, . is Private Physician. gr2 17:08 Patient visited by Florence Garrido. gr2 17:09 Patient moved to Pre RCE gr2 17:21 Triage Initiated jo3 17:24 Patient visited by Eugenia Lee RN. jo3 17:26 Patient moved to I5 / M5 jo3 17:46 Yoel Hilton PA-C is PHCP. ar2 17:46 Conrad Raphael MD is Attending Physician. ar2 17:57 [facility] Payment Agreement was scanned into [employer] and attached to record. zo 18:18 Patient visited by Yoel Hilton PA-C. ar2 19:05 Patient visited by Dru Jason RN. jmk 19:17 Brendan Finn MD is Referral Physician. ar2 19:47 The patient / caregiver is instructed regarding the plan of care and ED course. js15 19:47 No IV's were initiated during this patient's visit. No procedures done that require js15 assistance. Administered Medications: 19:03 Drug: Methotrexate (PF) 95 mg Route: IM; Site: right gluteus; jmk 19:47 Follow up: Response: No Adverse Reaction js15 Order Results: Lab Order: CBC with Diff; SPEC'M 06/06/16 17:53 Test: WHITE BLOOD COUNT; Value: 9.2; Range: 4.0-10.0; Units: K/mm3; Status: F Test: RED BLOOD COUNT; Value: 4.22; Range: 4.00-5.40; Units: M/mm3; Status: F Test: HEMOGLOBIN; Value: 12.1; Range: 12.0-16.0; Units: g/dl; Status: F Test: HEMATOCRIT; Value: 36.9; Range: 36.0-47.0; Units: %; Status: F Test: MEAN CORPUSCULAR VOLUME; Value: 87.4; Range: 80.0-96.0; Units: fl; Status: F Test: MEAN CORPUSCULAR HEMOGLOBIN; Value: 28.7; Range: 27.0-33.0; Units: pg; Status: F Test: MEAN CORPUSCULAR HGB CONC; Value: 32.9; Range: 32.0-36.5; Units: g/dl; Status: F Test: RED CELL DISTRIBUTION WIDTH; Value: 12.3; Range: 11.5-14.5; Units: %; Status: F Test: PLATELET COUNT, AUTOMATED; Value: 291; Range: 150-450; Units: k/mm3; Status: F Test: NEUTROPHILS %; Value: 71.1; Range: 36.0-66.0; Abnormal: Above high normal; Units: %; Status: F Test: LYMPH %; Value: 19.8; Range: 24.0-44.0; Abnormal: Below low normal; Units: %; Status: F Test: MONO %; Value: 5.8; Range: 0.0-5.0; Abnormal: Above high normal; Units: %; Status: F Test: EOS %; Value: 1.1; Range: 0.0-3.0; Units: %; Status: F Test: BASO %; Value: 0.3; Range: 0.0-1.0; Units: %; Status: F Test: LARGE UNSTAINED CELL %; Value: 2.0; Range: 0.0-4.0; Units: %; Status: F Test: NEUTROPHILS #; Value: 6.5; Range: 1.8-7.7; Units: K/mm3; Status: F Test: LYMPH #; Value: 1.8; Range: 1.5-4.5; Units: K/mm3; Status: F Test: MONO #; Value: 0.5; Range: 0.0-0.8; Units: K/mm3; Status: F Test: EOS #; Value: 0.1; Range: 0.0-0.50; Units: K/mm3; Status: F Test: BASO #; Value: 0.0; Range: 0.0-0.2; Units: K/mm3; Status: F Test: LARGE UNSTAINED CELL #; Value: 0.2; Range: 0.0-0.4; Units: K/mm3; Status: F Lab Order: Basic Metabolic Profile; [facility]' 06/06/16 17:53 Test: GLUCOSE, FASTING; Value: 84; Range: 70-105; Units: MG/DL; Status: F Test: BLOOD UREA NITROGEN; Value: 12; Range: 7-18; Units: MG/DL; Status: F Test: CREATININE FOR GFR; Value: 0.62; Range: 0.55-1.02; Units: MG/DL; Status: F Test: GLOMERULAR FILTRATION RATE; Value: > 60.0; Range: >60; Status: F Test: SODIUM LEVEL; Value: 143; Range: 136-145; Units: MEQ/L; Status: F Test: POTASSIUM SERUM; Value: 4.4; Range: 3.5-5.1; Units: MEQ/L; Status: F Test: CHLORIDE LEVEL; Value: 109; Range: 98-107; Abnormal: Above high normal; Units: MEQ/L; Status: F Test: CARBON DIOXIDE LEVEL; Value: 27; Range: 21-32; Units: MEQ/L; Status: F Test: ANION GAP; Value: 7; Range: 8-16; Abnormal: Below low normal; Units: MEQ/L; Status: F Test: CALCIUM LEVEL; Value: 8.4; Range: 8.5-10.1; Abnormal: Below low normal; Units: MG/DL; Status: F Test Note: ; Units are mL/min/1.73 m2 Chronic Kidney Disease Staging per NKF: Stage I & II GFR >=60 Normal to Mildly Decreased Stage III GFR 30-59 Moderately Decreased Stage IV GFR 15-29 Severely Decreased Stage V GFR <15 Very Little GFR Left ESRD GFR <15 on THREAD REELER Lab Order: Hcg, Serum Quantitative; SPEC'M 06/06/16 17:53 Test: HCG, SERUM QUANTITATIVE; Value: 6326; Units: MIU/ML; Status: F Test Note: ; GESTATIONAL AGE APPROXIMATE HCG RANGE (MIU/ML) 0.2-1 WEEK 5-50 1-2 WEEKS 50-500 2-3 WEEKS 100-5,000 3-4 WEEKS 500-10,000 4-5 WEEKS 1,000-50,000 5-6 WEEKS 10,000-100,000 6-8 WEEKS 15,000-200,000 2-3 MONTHS 10,000-100,000 NON FEMALES LESS THAN 3.0 Patient samples may contain human heterophilic antibodies that could react with immunoassays to give falsely elevated or depressed results. This assay has been designed to minimize interference from heterophilic antibodies. Elevated hCG levels have also been associated with trophoblastic disease and nontrophoblastic neoplasms. The possibility of having these diseases should be considered before a diagnosis of is made. This test is not intended for use as a surrogate marker for aiding in the diagnosis or monitoring the treatment of cancer patients. Siemens One-Song methodology. Lab Order: Type & Screen; SPEC'M 06/06/16 17:53 Test: BLOOD TYPE; Value: O POS; Status: F Test: AB SCREEN (INDIRECT MEGHAN)GEL; Value: NEGATIVE; Status: F Lab Order: UA; SPEC'M 06/06/16 17:53 Test: APPEARANCE, URINE; Value: CLEAR; Range: CLEAR; Status: F Test: COLOR, URINE; Value: YELLOW; Range: YELLOW; Status: F Test: PH,URINE; Value: 6.0; Range: 5.0-9.0; Units: UNITS; Status: F Test: SPECIFIC GRAVITY URINE AUTO; Value: 1.018; Range: 1.002-1.035; Status: F Test: PROTEIN, URINE AUTO; Value: NEGATIVE; Range: NEGATIVE; Units: mg/dL; Status: F Test: GLUCOSE, URINE (UA) AUTO; Value: NEGATIVE; Range: NEGATIVE; Units: mg/dL; Status: F Test: KETONE, URINE AUTO; Value: NEGATIVE; Range: NEGATIVE; Units: mg/dL; Status: F Test: UROBILINOGEN, URINE AUTO; Value: 0.2; Range: 0.0-2.0; Units: mg/dL; Status: F Test: BILIRUBIN, URINE AUTO; Value: NEGATIVE; Range: NEGATIVE; Status: F Test: NITRITE, URINE AUTO; Value: NEGATIVE; Range: NEGATIVE; Status: F Test: LEUKOCYTE ESTERASE, URINE AUTO; Value: TRACE; Range: NEGATIVE; Abnormal: Above high normal; Status: F Test: BLOOD, URINE BLOOD; Value: 1+; Range: NEGATIVE; Abnormal: Above high normal; Status: F Test: WBC, URINE AUTO; Value: 1; Range: 0-3; Units: /HPF; Status: F Test: RBC, URINE AUTO; Value: 0; Range: 0-3; Units: /HPF; Status: F Test: BACTERIA, URINE AUTO; Value: NEGATIVE; Range: NEGATIVE; Status: F Test: SQUAMOUS EPITHELIAL CELL UR AU; Value: 1; Range: 0-6; Units: /HPF; Status: F Test: MUCUS, URINE; Value: SMALL; Range: NEGATIVE; Status: F Test: HYALINE CAST, URINE AUTO; Value: 0; Range: 0-1; Units: /LPF; Status: F Outcome: 19:17 Discharge ordered by Provider. ar2 19:47 Discharge Assessment: Patient awake, alert and oriented x 3. No cognitive and/or js15 functional deficits noted. Patient verbalized understanding of disposition instructions. patient administered narcotics - no. The following High Risk Discharge criteria are identified: None. Discharged to home ambulatory, with family. Condition: stable. Discharge instructions given to patient, Instructed on discharge instructions, follow up and referral plans. Demonstrated understanding of instructions, Pt was receptive of discharge instructions/ teaching. No special radiology studies were completed. Property sent home with patient. 19:50 Patient left the ED. js15 Signatures: Dru Jason,RN RN Eugenia BlandRN RN Aisha Castro Aaron, PA-Ingrid PAJuju [email or web address] Florence Garrido gr2 Yesica Seth,RN RN js15 MTDAntoni
--- NOTE | 2016-06-08 20:51 | EDDOCDS ---
Nurse's Notes [facility] Name: Mary Neal Age: 30 yrs Sex: Female : 1985 Arrival Date: 06/06/2016 Time: 17:05 Bed I5 / M5 Private MD: NO PRIMARY PHYSICIAN, . Diagnosis: Ectopic Presentation: 06/06 17:19 Presenting complaint: Patient states: Was told today that she had an ectopic jo3 and Dr Finn sent her here to have a methotrexate injection. Risk factors: the patient reports no vaginal bleeding. Adult Sepsis Screening: The patient does not have new or worsening altered mentation. Patient's respiratory rate is less than 22. Systolic blood pressure is greater than 100. Patient has a qSOFA score of 0- Negative Sepsis Screen. Suicide/Homicide risk assessment- the patient denies having any suicidal and/or homicidal ideations and does not present with any other emotional, behavioral or mental health complaints. Status: Patient is not a service person or dependent. Transition of care: patient was not received from another setting of care. 17:19 Acuity: BHAVANA Level 3 jo3 17:19 Method Of Arrival: Walkin/Carried/Asstd jo3 Triage Assessment: 17:22 General: Appears in no apparent distress, Behavior is appropriate for age, cooperative, jo3 pleasant. Pain: Denies pain. HIV screening NA for this visit Offered previously. Neurological: Level of Consciousness is awake, alert, Oriented to person, place, time. Respiratory: Airway is patent Respiratory effort is even, unlabored. Derm: Skin is pink, warm & dry. ASSESSMENT NURSE: 17:22 1, Full Term 0, Premature 0, 0, Living 0, LMP 04/09/2016 jo3 Historical: - Allergies: PENICILLINS; - Home Meds: 1. none - PMHx: fertility treatments; - PSHx: Gastric Bypass (2012); - Social history: Smoking status: Patient states former smoker of tobacco. No barriers to communication noted, The patient speaks fluent Panamanian, Speaks appropriately for age. - Family history: Not pertinent. - : The pt / caregiver states he / she is not on anticoagulants. Home medication list is obtained from the patient. - Exposure Risk Screening:: None identified. Screenin:09 Screening information is obtained from the patient. Fall risk: No risks identified. jmk Assistance ADL's: requires no assistance with activities of daily living. Abuse/DV Screen: The patient / caregiver reports he/she is: not in a situation that causes fear, pain or injury. Nutritional screening: No deficits noted. Advance Directives: Currently, there is no health care proxy. There is no active DNR order. There is no living will. There is no Power of Application Spec. home support is adequate. Assessment: 18:07 General: Appears skin warm and dry color satisfactory. moist pink oral mucosa. without jmk abd pain. denies vaginal bleeding. easily accommodates position changes and ambulation. 19:03 General: Appears medicated with methotrexate to divided doses to bilateral glut. max.. jmk 19:47 General: Appears in no apparent distress, Behavior is appropriate for age, cooperative. js15 Neurological: Level of Consciousness is awake, alert, obeys commands, Oriented to person, place, time. Respiratory: Airway is patent Respiratory effort is even, unlabored, Respiratory pattern is regular, symmetrical. GI: Abdomen is non- distended. Derm: Skin is pink, warm & dry. Vital Signs: 17:08 BP 109 / 68; Pulse 95; Resp 18 S; Temp 98.0(O); Pulse Ox 99% on R/A; Weight 81.65 kg gr2 (R); Height 5 ft. 3 in. (160.02 cm) (R); Pain 0/10; 19:46 BP 116 / 79; Pulse 79; Resp 18; Temp 98.3(O); Pulse Ox 99% on R/A; Pain 0/10; js15 17:08 Body Mass Index 31.89 (81.65 kg, 160.02 cm) gr2 Vitals: 17:08 Log In Time: June 06, 2016 at 17:08. gr2 ED Course: 17:07 Patient visited by Florence Garrido. gr2 17:07 Patient moved to Waiting gr2 17:08 NO PRIMARY PHYSICIAN, . is Private Physician. gr2 17:08 Patient visited by Florence Garrido. gr2 17:09 Patient moved to Pre RCE gr2 17:21 Triage Initiated jo3 17:24 Patient visited by Eugenia Lee RN. jo3 17:26 Patient moved to I5 / M5 jo3 17:46 Yoel Hilton PA-C is PHCP. ar2 17:46 Conrad Raphael MD is Attending Physician. ar2 17:57 [facility] was scanned into [employer] and attached to record. zo 18:18 Patient visited by Yoel Hilton PA-C. ar2 19:05 Patient visited by Dru Jason RN. jmk 19:17 Brendan Finn MD is Referral Physician. ar2 19:47 The patient / caregiver is instructed regarding the plan of care and ED course. js15 19:47 No IV's were initiated during this patient's visit. No procedures done that require js15 assistance. 06/07 12:54 T-Sheet-- Draft Copy was scanned into [employer] and attached to record. gb Administered Medications: 06/06 19:03 Drug: Methotrexate (PF) 95 mg Route: IM; Site: right gluteus; jmk 19:47 Follow up: Response: No Adverse Reaction js15 Order Results: Lab Order: CBC with Diff; SPEC'M 06/06/16 17:53 Test: WHITE BLOOD COUNT; Value: 9.2; Range: 4.0-10.0; Units: K/mm3; Status: F Test: RED BLOOD COUNT; Value: 4.22; Range: 4.00-5.40; Units: M/mm3; Status: F Test: HEMOGLOBIN; Value: 12.1; Range: 12.0-16.0; Units: g/dl; Status: F Test: HEMATOCRIT; Value: 36.9; Range: 36.0-47.0; Units: %; Status: F Test: MEAN CORPUSCULAR VOLUME; Value: 87.4; Range: 80.0-96.0; Units: fl; Status: F Test: MEAN CORPUSCULAR HEMOGLOBIN; Value: 28.7; Range: 27.0-33.0; Units: pg; Status: F Test: MEAN CORPUSCULAR HGB CONC; Value: 32.9; Range: 32.0-36.5; Units: g/dl; Status: F Test: RED CELL DISTRIBUTION WIDTH; Value: 12.3; Range: 11.5-14.5; Units: %; Status: F Test: PLATELET COUNT, AUTOMATED; Value: 291; Range: 150-450; Units: k/mm3; Status: F Test: NEUTROPHILS %; Value: 71.1; Range: 36.0-66.0; Abnormal: Above high normal; Units: %; Status: F Test: LYMPH %; Value: 19.8; Range: 24.0-44.0; Abnormal: Below low normal; Units: %; Status: F Test: MONO %; Value: 5.8; Range: 0.0-5.0; Abnormal: Above high normal; Units: %; Status: F Test: EOS %; Value: 1.1; Range: 0.0-3.0; Units: %; Status: F Test: BASO %; Value: 0.3; Range: 0.0-1.0; Units: %; Status: F Test: LARGE UNSTAINED CELL %; Value: 2.0; Range: 0.0-4.0; Units: %; Status: F Test: NEUTROPHILS #; Value: 6.5; Range: 1.8-7.7; Units: K/mm3; Status: F Test: LYMPH #; Value: 1.8; Range: 1.5-4.5; Units: K/mm3; Status: F Test: MONO #; Value: 0.5; Range: 0.0-0.8; Units: K/mm3; Status: F Test: EOS #; Value: 0.1; Range: 0.0-0.50; Units: K/mm3; Status: F Test: BASO #; Value: 0.0; Range: 0.0-0.2; Units: K/mm3; Status: F Test: LARGE UNSTAINED CELL #; Value: 0.2; Range: 0.0-0.4; Units: K/mm3; Status: F Lab Order: Basic Metabolic Profile; SPEC'M 06/06/16 17:53 Test: GLUCOSE, FASTING; Value: 84; Range: 70-105; Units: MG/DL; Status: F Test: BLOOD UREA NITROGEN; Value: 12; Range: 7-18; Units: MG/DL; Status: F Test: CREATININE FOR GFR; Value: 0.62; Range: 0.55-1.02; Units: MG/DL; Status: F Test: GLOMERULAR FILTRATION RATE; Value: > 60.0; Range: >60; Status: F Test: SODIUM LEVEL; Value: 143; Range: 136-145; Units: MEQ/L; Status: F Test: POTASSIUM SERUM; Value: 4.4; Range: 3.5-5.1; Units: MEQ/L; Status: F Test: CHLORIDE LEVEL; Value: 109; Range: 98-107; Abnormal: Above high normal; Units: MEQ/L; Status: F Test: CARBON DIOXIDE LEVEL; Value: 27; Range: 21-32; Units: MEQ/L; Status: F Test: ANION GAP; Value: 7; Range: 8-16; Abnormal: Below low normal; Units: MEQ/L; Status: F Test: CALCIUM LEVEL; Value: 8.4; Range: 8.5-10.1; Abnormal: Below low normal; Units: MG/DL; Status: F Test Note: ; Units are mL/min/1.73 m2 Chronic Kidney Disease Staging per NKF: Stage I & II GFR >=60 Normal to Mildly Decreased Stage III GFR 30-59 Moderately Decreased Stage IV GFR 15-29 Severely Decreased Stage V GFR <15 Very Little GFR Left ESRD GFR <15 on DESK OPERATOR Lab Order: Hcg, Serum Quantitative; SPEC'M 06/06/16 17:53 Test: HCG, SERUM QUANTITATIVE; Value: 6326; Units: MIU/ML; Status: F Test Note: ; GESTATIONAL AGE APPROXIMATE HCG RANGE (MIU/ML) 0.2-1 WEEK 5-50 1-2 WEEKS 50-500 2-3 WEEKS 100-5,000 3-4 WEEKS 500-10,000 4-5 WEEKS 1,000-50,000 5-6 WEEKS 10,000-100,000 6-8 WEEKS 15,000-200,000 2-3 MONTHS 10,000-100,000 NON FEMALES LESS THAN 3.0 Patient samples may contain human heterophilic antibodies that could react with immunoassays to give falsely elevated or depressed results. This assay has been designed to minimize interference from heterophilic antibodies. Elevated hCG levels have also been associated with trophoblastic disease and nontrophoblastic neoplasms. The possibility of having these diseases should be considered before a diagnosis of is made. This test is not intended for use as a surrogate marker for aiding in the diagnosis or monitoring the treatment of cancer patients. [employer] methodology. Lab Order: Type & Screen; SPEC'M 06/06/16 17:53 Test: BLOOD TYPE; Value: O POS; Status: F Test: AB SCREEN (INDIRECT MEGHAN)GEL; Value: NEGATIVE; Status: F Lab Order: UA; SPEC'M 06/06/16 17:53 Test: APPEARANCE, URINE; Value: CLEAR; Range: CLEAR; Status: F Test: COLOR, URINE; Value: YELLOW; Range: YELLOW; Status: F Test: PH,URINE; Value: 6.0; Range: 5.0-9.0; Units: UNITS; Status: F Test: SPECIFIC GRAVITY URINE AUTO; Value: 1.018; Range: 1.002-1.035; Status: F Test: PROTEIN, URINE AUTO; Value: NEGATIVE; Range: NEGATIVE; Units: mg/dL; Status: F Test: GLUCOSE, URINE (UA) AUTO; Value: NEGATIVE; Range: NEGATIVE; Units: mg/dL; Status: F Test: KETONE, URINE AUTO; Value: NEGATIVE; Range: NEGATIVE; Units: mg/dL; Status: F Test: UROBILINOGEN, URINE AUTO; Value: 0.2; Range: 0.0-2.0; Units: mg/dL; Status: F Test: BILIRUBIN, URINE AUTO; Value: NEGATIVE; Range: NEGATIVE; Status: F Test: NITRITE, URINE AUTO; Value: NEGATIVE; Range: NEGATIVE; Status: F Test: LEUKOCYTE ESTERASE, URINE AUTO; Value: TRACE; Range: NEGATIVE; Abnormal: Above high normal; Status: F Test: BLOOD, URINE BLOOD; Value: 1+; Range: NEGATIVE; Abnormal: Above high normal; Status: F Test: WBC, URINE AUTO; Value: 1; Range: 0-3; Units: /HPF; Status: F Test: RBC, URINE AUTO; Value: 0; Range: 0-3; Units: /HPF; Status: F Test: BACTERIA, URINE AUTO; Value: NEGATIVE; Range: NEGATIVE; Status: F Test: SQUAMOUS EPITHELIAL CELL UR AU; Value: 1; Range: 0-6; Units: /HPF; Status: F Test: MUCUS, URINE; Value: SMALL; Range: NEGATIVE; Status: F Test: HYALINE CAST, URINE AUTO; Value: 0; Range: 0-1; Units: /LPF; Status: F Outcome: 19:17 Discharge ordered by Provider. ar2 19:47 Discharge Assessment: Patient awake, alert and oriented x 3. No cognitive and/or js15 functional deficits noted. Patient verbalized understanding of disposition instructions. patient administered narcotics - no. The following High Risk Discharge criteria are identified: None. Discharged to home ambulatory, with family. Condition: stable. Discharge instructions given to patient, Instructed on discharge instructions, follow up and referral plans. Demonstrated understanding of instructions, Pt was receptive of discharge instructions/ teaching. No special radiology studies were completed. Property sent home with patient. 19:50 Patient left the ED. js15 Signatures: Dru Jason,RN RN Bailey Amador, Reg Reg Eugenia Lowe,RN RN Aisha Castro Aaron, PA-C PA-C ar2 Florence Garrido gr2 Yesica Seth,RN RN js15 Chart Complete KIRAN
--- NOTE | 2016-06-08 20:51 | EDDOCDS ---
Physician Documentation [facility] Name: Mary Neal Age: 30 yrs Sex: Female : 1985 Arrival Date: 06/06/2016 Time: 17:05 Bed I5 / M5 Private MD: NO PRIMARY PHYSICIAN, . Disposition: 06/06/16 19:17 Discharged to Home/Self Care. Impression: Ectopic . - Condition is Stable. - Discharge Instructions: Methotrexate Treatment for an Ectopic . - Medication Reconciliation, Local Pharmacy Hours form. - Follow up: Brendan Winslow MD; When: As previously arranged; Reason: Recheck today's complaints, Continuance of care. - Problem is new. - Symptoms are unchanged. - Notes: follow up with Dr. Winslow's office as previously arranged. return to ER if you develop severe abdominal pain, fevers or worsening condition Historical: - Allergies: PENICILLINS; - Home Meds: 1. none - PMHx: fertility treatments; - PSHx: Gastric Bypass (2012); - Social history: Smoking status: Patient states former smoker of tobacco. No barriers to communication noted, The patient speaks fluent Danish, Speaks appropriately for age. - Family history: Not pertinent. - : The pt / caregiver states he / she is not on anticoagulants. Home medication list is obtained from the patient. - Exposure Risk Screening:: None identified. IMPREG[employer]ATOR [employer]: 06/06 17:22 1, Full Term 0, Premature 0, 0, Living 0, LMP 04/09/2016 jo3 Vital Signs: 17:08 BP 109 / 68; Pulse 95; Resp 18 S; Temp 98.0(O); Pulse Ox 99% on R/A; Weight 81.65 kg / gr2 180.01 lbs (R); Height 5 ft. 3 in. (160.02 cm) (R); Pain 0/10; 19:46 BP 116 / 79; Pulse 79; Resp 18; Temp 98.3(O); Pulse Ox 99% on R/A; Pain 0/10; js15 17:08 Body Mass Index 31.89 (81.65 kg, 160.02 cm) gr2 MDM: 17:47 Methotrexate (PF) 95 mg IM once ordered. dt4 17:48 CBC with Diff Ordered. EDMS 17:48 Basic Metabolic Profile Ordered. EDMS 17:48 Hcg, Serum Quantitative Ordered. EDMS 17:48 Type & Screen Ordered. EDMS 17:48 UA Ordered. EDMS 17:48 ED course: PT HAD NOT BEEN SEEN YET, CALLED AND SPOKE WITH DR. WINSLOW PRIOR TO PLACING dt4 ANY ORDERS. ADVISED THAT PT WAS DX WITH A LEFT ECTOPIC IN THE OFFICE AND WAS SENT HERE TODAY FOR METHOTREXATE INJECTION. ADVISED THE CONSENT FORM AND ORDER SHEET WITH CORRECT DOSE WAS WITH THE PT (PLEASE SEE PAPER CHART). ADVISED TO DRAW APPROPRIATE LABS, PER PROTOCOL AND THAT DR. 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 . 17:57 [facility] Payment Agreement was scanned into [employer] and attached to record. zo 18:20 Financial registration complete. zo 19:16 CBC with Diff Reviewed. ar2 19:16 Basic Metabolic Profile Reviewed. ar2 19:16 UA Reviewed. ar2 19:16 Hcg, Serum Quantitative Reviewed. ar2 19:16 Type & Screen Reviewed. ar2 06/07 12:54 T-Sheet-- Draft Copy was scanned into [employer] and attached to record. gb Administered Medications: 06/06 19:03 Drug: Methotrexate (PF) 95 mg Route: IM; Site: right gluteus; kerrie 19:47 Follow up: Response: No Adverse Reaction js15 Signatures: Dispatcher [employer] Dru Barrios,RN RN Bailey Amador, Reg Reg Eugenia Lowe RN RN jo3 Aisha Aguayo Aaron, PA-C PA-C ar2 Marielena Holloway PA-C PA-C dt4 Yesica Seth RN RN js15 The chart was reviewed and I authenticate all verbal orders and agree with the evaluation and treatment provided.Attachments: 17:57 [facility] Payment Agreement zo 06/07 12:54 T-Sheet-- Draft Copy gb Chart Complete MTDD
--- NOTE | 2016-06-08 20:51 | EDDOCDS ---
Physician Documentation [facility] Name: Mary Neal Age: 30 yrs Sex: Female : 1985 Arrival Date: 06/06/2016 Time: 17:05 Bed I5 / M5 Private MD: NO PRIMARY PHYSICIAN, . Disposition: 06/06/16 19:17 Discharged to Home/Self Care. Impression: Ectopic . - Condition is Stable. - Discharge Instructions: Methotrexate Treatment for an Ectopic . - Medication Reconciliation, Local Pharmacy Hours form. - Follow up: Brendan Winslow MD; When: As previously arranged; Reason: Recheck today's complaints, Continuance of care. - Problem is new. - Symptoms are unchanged. - Notes: follow up with Dr. Winslow's office as previously arranged. return to ER if you develop severe abdominal pain, fevers or worsening condition Historical: - Allergies: PENICILLINS; - Home Meds: 1. none - PMHx: fertility treatments; - PSHx: Gastric Bypass (2012); - Social history: Smoking status: Patient states former smoker of tobacco. No barriers to communication noted, The patient speaks fluent German, Speaks appropriately for age. - Family history: Not pertinent. - : The pt / caregiver states he / she is not on anticoagulants. Home medication list is obtained from the patient. - Exposure Risk Screening:: None identified. 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 3 in. (160.02 cm) (R); Pain 0/10; 19:46 BP 116 / 79; Pulse 79; Resp 18; Temp 98.3(O); Pulse Ox 99% on R/A; Pain 0/10; js15 17:08 Body Mass Index 31.89 (81.65 kg, 160.02 cm) gr2 MDM: 17:47 Methotrexate (PF) 95 mg IM once ordered. dt4 17:48 CBC with Diff Ordered. EDMS 17:48 Basic Metabolic Profile Ordered. EDMS 17:48 Hcg, Serum Quantitative Ordered. EDMS 17:48 Type & Screen Ordered. EDMS 17:48 UA Ordered. EDMS 17:48 ED course: PT HAD NOT BEEN SEEN YET, CALLED AND SPOKE WITH DR. WINSLOW PRIOR TO PLACING dt4 ANY ORDERS. ADVISED THAT PT WAS DX WITH A LEFT ECTOPIC IN THE OFFICE AND WAS SENT HERE TODAY FOR METHOTREXATE INJECTION. ADVISED THE CONSENT FORM AND ORDER SHEET WITH CORRECT DOSE WAS WITH THE PT (PLEASE SEE PAPER CHART). 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 . 17:57 [facility] Payment Agreement was scanned into [employer] and attached to record. zo 18:20 Financial registration complete. zo 19:16 CBC with Diff Reviewed. ar2 19:16 Basic Metabolic Profile Reviewed. ar2 19:16 UA Reviewed. ar2 19:16 Hcg, Serum Quantitative Reviewed. ar2 19:16 Type & Screen Reviewed. ar2 06/07 12:54 T-Sheet-- Draft Copy was scanned into [employer] and attached to record. gb Administered Medications: 06/06 19:03 Drug: Methotrexate (PF) 95 mg Route: IM; Site: right gluteus; kerrie 19:47 Follow up: Response: No Adverse Reaction js15 Signatures: Dispatcher [employer] Dru Barrios,RN RN Bailey Amador, Reg Reg Eugenia Lowe RN RN jo3 Aisha Aguayo Aaron, PA-C PA-C ar2 Marielena Holloway PA-C PA-C dt4 Yesica Seth RN RN js15 The chart was reviewed and I authenticate all verbal orders and agree with the evaluation and treatment provided.Attachments: 17:57 [facility] Payment Agreement zo 06/07 12:54 T-Sheet-- Draft Copy gb Chart Complete MTDD
== END 2016-06-06 19:50 | disposition home or self-care (01) ==
LOC: M ED 17:05
DX: O00.90 Unspecified ectopic pregnancy without intrauterine pregnancy (principal); O00.80 Other ectopic pregnancy without intrauterine pregnancy; Z98.84 Bariatric surgery status; Z87.891 Personal history of nicotine dependence; Z88.0 Allergy status to penicillin
CPT/HCPCS: 80048; 81001; 84702; 85025; 86850; 86900; 86901; 96372; 99283; J9260

== ENCOUNTER → 2016-06-11 | Outpatient (CLI) | payer BC | LOC: M LAB 06:52 | PROVIDERS: ATTEND Specialist | DX: O00.10 Tubal pregnancy without intrauterine pregnancy (principal) ==

== ENCOUNTER → 2016-06-14 | Outpatient (CLI) | payer BC | LOC: M WUC 08:43 | PROVIDERS: ATTEND Specialist | DX: O00.10 Tubal pregnancy without intrauterine pregnancy (principal) ==

== ENCOUNTER → 2016-06-21 | Outpatient (CLI) | payer BC | LOC: M WUC 08:14 | PROVIDERS: ATTEND Specialist | DX: O00.10 Tubal pregnancy without intrauterine pregnancy (principal) ==

== ENCOUNTER → 2016-06-28 | Outpatient (CLI) | payer BC | LOC: M WUC 08:07 | PROVIDERS: ATTEND Specialist | DX: O00.10 Tubal pregnancy without intrauterine pregnancy (principal) ==

== ENCOUNTER → 2016-07-05 | Outpatient (CLI) | payer BC | LOC: M WUC 08:13 | PROVIDERS: ATTEND Specialist | DX: O00.10 Tubal pregnancy without intrauterine pregnancy (principal) ==

== ENCOUNTER → 2016-09-04 | Outpatient (REF) | payer BC | LOC: M LAB REF 12:48 | PROVIDERS: ATTEND Specialist | DX: R87.612 Low grade squamous intraepithelial lesion on cytologic smear of cervix (LGSIL) (principal) ==

== ENCOUNTER 2017-04-25 17:53 | Emergency (ER) | payer BC ==
[~2017-04-25] VITALS: Ht 162.6 cm; Wt 84.5 kg
[2017-04-25] MEDS ORDERED: CLOM50TA9 IM (18:01)
[2017-04-25] MEDS ORDERED: DAY-LIQ6 PO (18:01)
[2017-04-25] MEDS ORDERED: TYLE325T5 PO (18:01)
[2017-04-25 21:12] VITALS: BP 138/89
== END 2017-04-25 21:13 | disposition home or self-care (01) ==
LOC: M ED 17:53
DX: J06.9 Acute upper respiratory infection, unspecified (principal); Z98.84 Bariatric surgery status; Z88.0 Allergy status to penicillin

== ENCOUNTER → 2017-08-19 | Outpatient (CLI) | payer BC ==
[2017-08-19 09:35] LABS: PROGESTERONE < 0.2 NG/ML
[2017-08-19 09:35] LABS: ESTRADIOL 58.6 PG/ML; LUTEINIZING HORMONE 2.6 mIU/mL
== END ==
LOC: M LAB 06:48
DX: E28.9 Ovarian dysfunction, unspecified (principal)
CPT/HCPCS: 83002

== ENCOUNTER → 2017-08-21 | Outpatient (CLI) | payer BC ==
[2017-08-22 07:23] LABS: PROGESTERONE < 0.2 NG/ML
[2017-08-22 07:23] LABS: ESTRADIOL 128.3 PG/ML
[2017-08-22 07:24] LABS: LUTEINIZING HORMONE 2.1 mIU/mL
== END ==
LOC: M LAB 06:40
DX: E28.9 Ovarian dysfunction, unspecified (principal)
CPT/HCPCS: 83002

== ENCOUNTER → 2017-08-29 | Outpatient (CLI) | payer BC ==
[2017-08-29 08:40] LABS: PROGESTERONE 31.2 NG/ML
[2017-08-29 08:41] LABS: ESTRADIOL 286.8 PG/ML
== END ==
LOC: M LAB 07:12
DX: E28.9 Ovarian dysfunction, unspecified (principal)
CPT/HCPCS: 84443

== ENCOUNTER → 2017-09-05 | Outpatient (CLI) | payer BC ==
[2017-09-05 08:13] LABS: HCG, SERUM QUANTITATIVE < 1.0 MIU/ML
[2017-09-05 09:48] LABS: PROGESTERONE 10.6 NG/ML
== END ==
LOC: M LAB 07:10
DX: E28.9 Ovarian dysfunction, unspecified (principal)
CPT/HCPCS: 84702

== ENCOUNTER → 2017-09-10 | Outpatient (CLI) | payer BC ==
[2017-09-10 07:25] LABS: HCG, SERUM QUANTITATIVE < 1.0 MIU/ML
[2017-09-10 08:58] LABS: PROGESTERONE 0.4 NG/ML
[2017-09-10 08:58] LABS: LUTEINIZING HORMONE 4.4 mIU/mL
[2017-09-10 08:59] LABS: ESTRADIOL 36.3 PG/ML; FOLLICLE STIMULATING HORMONE 7.6 mIU/mL
== END ==
LOC: M LAB 06:27
DX: E28.9 Ovarian dysfunction, unspecified (principal)
CPT/HCPCS: 83001

== ENCOUNTER → 2017-09-24 | Outpatient (CLI) | payer BC ==
[2017-09-24 08:48] LABS: PROGESTERONE 0.4 NG/ML
[2017-09-24 08:49] LABS: ESTRADIOL 19.6 PG/ML
== END ==
LOC: M LAB 06:48
DX: E28.9 Ovarian dysfunction, unspecified (principal)

== ENCOUNTER → 2017-10-01 | Outpatient (CLI) | payer BC ==
[2017-10-01 09:24] LABS: ESTRADIOL 61.8 PG/ML; LUTEINIZING HORMONE 3.4 mIU/mL
[2017-10-01 09:24] LABS: PROGESTERONE 0.4 NG/ML
== END ==
LOC: M LAB 07:11
DX: E28.9 Ovarian dysfunction, unspecified (principal)
CPT/HCPCS: 83002

== ENCOUNTER → 2017-10-03 | Outpatient (CLI) | payer BC ==
[2017-10-03 13:53] LABS: PROGESTERONE 0.3 NG/ML
[2017-10-03 13:54] LABS: LUTEINIZING HORMONE 1.8 mIU/mL
[2017-10-03 13:55] LABS: ESTRADIOL 104.9 PG/ML
== END ==
LOC: M LAB 06:13
DX: E28.9 Ovarian dysfunction, unspecified (principal)
CPT/HCPCS: 83002

== ENCOUNTER → 2017-10-18 | Outpatient (CLI) | payer BC ==
[2017-10-18 08:10] LABS: HCG, SERUM QUANTITATIVE < 1.0 MIU/ML
[2017-10-18 10:19] LABS: PROGESTERONE 7.2 NG/ML
== END ==
LOC: M LAB 07:10
DX: E28.9 Ovarian dysfunction, unspecified (principal)
CPT/HCPCS: 84702

== ENCOUNTER → 2018-01-21 | Outpatient (REF) | payer BC ==
[2018-01-23 15:01] LABS: HPV HYBRID CAPTURE II Positive (Negative)
== END ==
LOC: M LAB REF 17:43
DX: Z12.4 Encounter for screening for malignant neoplasm of cervix (principal)
CPT/HCPCS: G0123

== ENCOUNTER 2018-06-27 16:19 | Emergency (ER) | payer BC ==
[~2018-06-27] VITALS: Ht 160 cm; Wt 90.9 kg
[~2018-06-27 16:19] MED LIST: CLOM50TA9 IM; DAY-LIQ6 PO; TYLE325T5 PO
[2018-06-27] MEDS ORDERED: CENTCHW4 PO (16:23)
[2018-06-27] MEDS ORDERED: AZITHROMYCIN 250 MG TAB PO ONE (17:45)
[2018-06-27] MEDS ORDERED: ZITHTAB PO (17:46)
[2018-06-27 17:52] VITALS: BP 130/68
== END 2018-06-27 17:59 | disposition home or self-care (01) ==
LOC: M ED 16:19
DX: J02.0 Streptococcal pharyngitis (principal); Z88.0 Allergy status to penicillin

== ENCOUNTER 2018-07-27 04:21 | Emergency (ER) | payer BC ==
[~2018-07-27] VITALS: Ht 160 cm; Wt 90.9 kg
[2018-07-27 04:21] VITALS: BP 138/90
[~2018-07-27 04:21] MED LIST changes: +CENTCHW4 PO; +ZITHTAB PO
[2018-07-27] MEDS ORDERED: THERA FLU (04:26)
[2018-07-27] MEDS ORDERED: CLEO300C2 PO (05:11)
[2018-07-27] MEDS ORDERED: CLINDAMYCIN 150 MG CAP PO ONE (05:15)
== END 2018-07-27 05:18 | disposition home or self-care (01) ==
LOC: M ED 04:21
DX: J02.9 Acute pharyngitis, unspecified (principal); Z79.899 Other long term (current) drug therapy; Z88.0 Allergy status to penicillin

== ENCOUNTER → 2018-10-20 | Outpatient (CLI) | payer BC ==
[~2018-10-20] MED LIST changes: +CLEO300C2 PO; +THERA FLU
[2018-10-20 07:30] LABS: BASO % 0.6 % (0.0-1.0); EOS # 0.1 10^3/uL (0.0-0.50); HEMATOCRIT 38.1 % (36.0-47.0); HEMOGLOBIN 11.9 g/dl (12.0-15.5); LYMPH # 1.8 10^3/uL (1.5-4.5); LYMPH % 25.9 % (24.0-44.0); MEAN CORPUSCULAR HEMOGLOBIN 25.8 pg (27.0-33.0); MEAN CORPUSCULAR HGB CONC 31.2 g/dl (32.0-36.5); MEAN CORPUSCULAR VOLUME 82.6 fl (80.0-96.0); MONO # 0.6 10^3/uL (0.0-0.8); MONO % 8.3 % (0.0-5.0); NEUTROPHILS # 4.4 10^3/uL (1.8-7.7); NEUTROPHILS % 63.9 % (36.0-66.0); PLATELET COUNT, AUTOMATED 309 10^3/uL (150-450); RED BLOOD COUNT 4.61 10^6/uL (4.00-5.40); WHITE BLOOD COUNT 6.9 10^3/uL (4.0-10.0)
[2018-10-20 07:35] LABS: APPEARANCE, URINE HAZY (CLEAR); BACTERIA, URINE AUTO NEGATIVE (NEGATIVE); BILIRUBIN, URINE AUTO NEGATIVE (NEGATIVE); BLOOD, URINE BLOOD NEGATIVE (NEGATIVE); COLOR, URINE YELLOW (YELLOW); GLUCOSE, URINE (UA) AUTO NEGATIVE (NEGATIVE); KETONE, URINE AUTO NEGATIVE (NEGATIVE); LEUKOCYTE ESTERASE, URINE AUTO NEGATIVE (NEGATIVE); MUCUS, URINE SMALL (NEGATIVE); NITRITE, URINE AUTO NEGATIVE (NEGATIVE); PROTEIN, URINE AUTO NEGATIVE (NEGATIVE); RBC, URINE AUTO 1 /HPF (0-3); SPECIFIC GRAVITY URINE AUTO 1.025 (1.002-1.035); SQUAMOUS EPITHELIAL CELL UR AU 8 /HPF (0-6); UROBILINOGEN, URINE AUTO 0.2 mg/dL (0.0-2.0); WBC, URINE AUTO 1 /HPF (0-3)
[2018-10-20 07:47] LABS: HEMOGLOBIN A1c 5.7 %
[2018-10-20 07:58] LABS: ALBUMIN 3.6 GM/DL (3.2-5.2); ALT/SGPT 26 U/L (12-78); BILIRUBIN,TOTAL 0.3 MG/DL (0.2-1.0); BLOOD UREA NITROGEN 13 MG/DL (7-18); CALCIUM LEVEL 8.4 MG/DL (8.5-10.1); CARBON DIOXIDE LEVEL 25 MEQ/L (21-32); CHLORIDE LEVEL 108 MEQ/L (98-107); CHOLESTEROL LEVEL 130 MG/DL (<200); CREATININE FOR GFR 0.64 MG/DL (0.55-1.30); FREE T4 1.07 NG/DL (0.76-1.46); GLOMERULAR FILTRATION RATE > 60.0 (>60); GLUCOSE, FASTING 96 MG/DL (70-100); HDL CHOLESTEROL 71 MG/DL (>40); LDL CHOLESTEROL 43 MG/DL (<100); NON-HDL-C 59 MG/DL; POTASSIUM SERUM 4.2 MEQ/L (3.5-5.1); SODIUM LEVEL 139 MEQ/L (136-145); TOTAL PROTEIN 7.3 GM/DL (6.4-8.2); TRIGLYCERIDES LEVEL 78 MG/DL (<150)
[2018-10-20 08:20] LABS: TOTAL 25(OH) VITAMIN D 21.3 NG/ML (30.0-100.0)
[2018-10-23 00:07] LABS: Lyme Disease IgG Ab 18 kDa Ban Absent (.); Lyme Disease IgG Ab 23 kDa Ban Absent (.); Lyme Disease IgG Ab 28 kDa Ban Absent (.); Lyme Disease IgG Ab 30 kDa Ban Absent (.); Lyme Disease IgG Ab 39 kDa Ban Absent (.); Lyme Disease IgG Ab 41 kDa Ban Absent (.); Lyme Disease IgG Ab 45 kDa Ban Absent (.); Lyme Disease IgG Ab 58 kDa Ban Absent (.); Lyme Disease IgG Ab 66 kDa Ban Absent (.); Lyme Disease IgG Ab 93 kDa Ban Absent (.); Lyme Disease IgG West Blot Int Negative (.); Lyme Disease IgG/IgM Antibodie <0.91 ISR (0.00-0.90); Lyme Disease IgM Ab 23 kDa Ban Present (.); Lyme Disease IgM Ab 39 kDa Ban Absent (.); Lyme Disease IgM Ab 41 kDa Ban Present (.); Lyme Disease IgM Ab Quantitati 5.46 index (0.00-0.79); Lyme Disease IgM West Blot Int Positive (.)
== END ==
LOC: M LAB 06:43
PROVIDERS: ATTEND Family Medicine
DX: Z13.228 Encounter for screening for other metabolic disorders (principal)

== ENCOUNTER → 2019-02-06 | Outpatient (CLI) | payer BC ==
[2019-02-11 08:20] LABS: HPV HYBRID CAPTURE II Positive (Negative)
== END ==
LOC: M SMT 14:09
PROVIDERS: ATTEND Advanced Practice Midwife
DX: Z13.79 Encounter for other screening for genetic and chromosomal anomalies (principal)
CPT/HCPCS: 36415; 87624; G0123

== ENCOUNTER → 2019-03-31 | Outpatient (CLI) | payer BC ==
[2019-03-31 08:07] LABS: ALBUMIN 3.7 GM/DL (3.2-5.2); ALT/SGPT 15 U/L (12-78); BILIRUBIN,TOTAL 0.3 MG/DL (0.2-1.0); BLOOD UREA NITROGEN 13 MG/DL (7-18); CALCIUM LEVEL 8.5 MG/DL (8.5-10.1); CARBON DIOXIDE LEVEL 28 MEQ/L (21-32); CHLORIDE LEVEL 109 MEQ/L (98-107); CREATININE FOR GFR 0.63 MG/DL (0.55-1.30); GLOMERULAR FILTRATION RATE > 60.0 (>60); GLUCOSE, FASTING 77 MG/DL (70-100); POTASSIUM SERUM 4.3 MEQ/L (3.5-5.1); SODIUM LEVEL 141 MEQ/L (136-145); TOTAL PROTEIN 7.3 GM/DL (6.4-8.2)
[2019-03-31 08:47] LABS: HEMOGLOBIN A1c 5.4 %
== END ==
LOC: M LAB 07:00
PROVIDERS: ATTEND Family Medicine
DX: R73.03 Prediabetes (principal)

== ENCOUNTER 2019-05-09 16:14 | Emergency (ER) | payer BC ==
[~2019-05-09] VITALS: Ht 160 cm; Wt 88.2 kg
[2019-05-09] MEDS ORDERED: VITA100066 PO (16:24)
[2019-05-09] MEDS ORDERED: METF-839 PO (16:24)
--- NOTE | 2019-05-09 17:47 | REPVR ---
PROCEDURE INFORMATION: Exam: US Duplex Left Upper Extremity Veins, Limited Exam date and time: 05/09/2019 5:17 PM Age: 33 years old Clinical indication: Pain; Arm, upper; Left; Additional info: Left upper arm swelling; R/O clot TECHNIQUE: Imaging protocol: Real-time Duplex ultrasound of the Left Upper Extremity with 2-D rizvi scale, color Doppler flow and spectral waveform analysis with image documentation. Limited exam focused on the left upper extremity veins. COMPARISON: No relevant prior studies available. FINDINGS: Left deep veins: Unremarkable. Axillary and brachial veins are patent throughout without thrombus. Normal Doppler waveforms. Normal compressibility and/or augmentation response. Visualized internal jugular and subclavian veins are patent. Left superficial veins: Unremarkable. Visualized cephalic and basilic veins are patent without thrombus. Soft tissues: Unremarkable. IMPRESSION: No acute findings. No evidence of deep vein thrombosis. Electronically signed by: Arti Ellington On 05/09/2019 17:46:30 PM
[2019-05-09 18:30] VITALS: BP 127/82
== END 2019-05-09 18:33 | disposition home or self-care (01) ==
LOC: M ED 16:14
DX: M79.622 Pain in left upper arm (principal); Z88.0 Allergy status to penicillin; Z79.84 Long term (current) use of oral hypoglycemic drugs

== ENCOUNTER → 2019-05-12 | Outpatient (CLI) | payer BC ==
[~2019-05-12] MED LIST changes: +METF-839 PO; +VITA100066 PO
[2019-05-12 07:18] LABS: HEMATOCRIT 36.8 % (36.0-47.0); HEMOGLOBIN 11.6 g/dl (12.0-15.5); MEAN CORPUSCULAR HEMOGLOBIN 26.4 pg (27.0-33.0); MEAN CORPUSCULAR HGB CONC 31.5 g/dl (32.0-36.5); MEAN CORPUSCULAR VOLUME 83.8 fl (80.0-96.0); PLATELET COUNT, AUTOMATED 331 10^3/uL (150-450); RED BLOOD COUNT 4.39 10^6/uL (4.00-5.40); WHITE BLOOD COUNT 6.4 10^3/uL (4.0-10.0)
[2019-05-12 07:52] LABS: ALBUMIN 3.4 GM/DL (3.2-5.2); ALT/SGPT 12 U/L (12-78); BILIRUBIN,TOTAL 0.6 MG/DL (0.2-1.0); BLOOD UREA NITROGEN 13 MG/DL (7-18); CALCIUM LEVEL 8.5 MG/DL (8.5-10.1); CARBON DIOXIDE LEVEL 24 MEQ/L (21-32); CHLORIDE LEVEL 107 MEQ/L (98-107); CREATININE FOR GFR 0.61 MG/DL (0.55-1.30); GLOMERULAR FILTRATION RATE > 60.0 (>60); GLUCOSE, FASTING 83 MG/DL (70-100); POTASSIUM SERUM 4.1 MEQ/L (3.5-5.1); SODIUM LEVEL 138 MEQ/L (136-145); TOTAL PROTEIN 6.9 GM/DL (6.4-8.2)
[2019-05-12 11:03] LABS: TOTAL 25(OH) VITAMIN D 19.9 NG/ML (30.0-100.0)
[2019-05-12 11:04] LABS: PROLACTIN 36.3 NG/ML; TESTOSTERONE 23 NG/DL (14-76)
[2019-05-13 09:28] LABS: HEPATITIS B SURFACE ANTIGEN NEGATIVE (NEGATIVE); RUBELLA IgG QUALITATIVE IMMUNE (IMMUNE)
[2019-05-13 09:57] LABS: HIV 1&2 SCREEN CENTAUR NEGATIVE (NEGATIVE)
[2019-05-13 13:06] LABS: HEPATITIS C VIRUS ABY INDEX < 0.0 INDEX (<0.8)
== END ==
LOC: M LAB 06:35
PROVIDERS: ATTEND Obstetrics & Gynecology Reproductive Endocrinology
DX: E28.9 Ovarian dysfunction, unspecified (principal)

== ENCOUNTER → 2019-06-16 | Outpatient (REF) | payer BC | LOC: M SFHCWAGY 09:43 | PROVIDERS: ATTEND Specialist | DX: R87.810 Cervical high risk human papillomavirus (HPV) DNA test positive (principal); R87.610 Atypical squamous cells of undetermined significance on cytologic smear of cervix (ASC-US) ==

== ENCOUNTER → 2019-06-19 | Outpatient (CLI) | payer BC ==
--- NOTE | 2019-06-19 07:22 | REPVR ---
PROCEDURE INFORMATION: Exam: US Pelvis, Transvaginal Exam date and time: 06/19/2019 6:36 AM Age: 33 years old Clinical indication: Condition or disease; Other: Infertility TECHNIQUE: Imaging protocol: Real-time transvaginal pelvic ultrasound with image documentation. Transvaginal imaging was used for better evaluation of the endometrium and adnexa. COMPARISON: No relevant prior studies available. FINDINGS: Uterus/cervix: The uterus is retroverted and measures 6.9 x 3.7 x 4.8 cm. The endometrial stripe measures 6 mm in thickness. The endometrium appears in the fundus toward the cornua, suggesting a septated uterus. No uterine masses are identified. Right adnexa: The right ovary appears normal and measures 3.9 x 2.1 x 2.1 cm. There is a dominant follicle in the right ovary measuring 11 x 8 mm and multiple smaller additional follicles numbering approximately 12 ranging between 2 and 9 mm. Left adnexa: The left ovary appears normal and measures 3.7 x 2.2 x 2.2 cm. There is a dominant follicle measuring 17 x 13 mm and there is a 10 x 5 mm follicle. There are multiple smaller additional follicles numbering 19 ranging between 2 and 7 mm. Free fluid: No significant fluid is seen in the cul-de-sac. IMPRESSION: 1. Endometrial stripe normal in thickness measuring 6 mm. 2. Possible septated uterus. 3. Normal appearance of the ovaries with multiple follicles as described. Electronically signed by: Eugenia Deleon On 06/19/2019 07:22:13 AM
[2019-06-19 07:31] LABS: HCG, SERUM QUANTITATIVE < 1.0 MIU/ML
[2019-06-19 09:04] LABS: LUTEINIZING HORMONE 4.1 mIU/mL; PROGESTERONE 0.28 NG/ML
[2019-06-19 09:05] LABS: ESTRADIOL 28.7 PG/ML; FOLLICLE STIMULATING HORMONE 6.9 mIU/mL
== END ==
LOC: M RAD 06:14
PROVIDERS: ATTEND Obstetrics & Gynecology Reproductive Endocrinology
DX: E28.9 Ovarian dysfunction, unspecified (principal)

== ENCOUNTER → 2019-06-24 | Outpatient (CLI) | payer BC ==
[2019-06-24 08:50] LABS: ESTRADIOL 394.2 PG/ML; LUTEINIZING HORMONE 1.5 mIU/mL; PROGESTERONE 0.37 NG/ML
--- NOTE | 2019-06-24 09:50 | REP ---
Clinical: Infertility. Comparison: 06/19/2019. Technique: Transvaginal ultrasound examination. Findings: Uterus measures 6.9 x 4.1 x 5.0 cm. Endometrial complex measures 10.1 mm thickness. Subcentimeter Nabothian cyst noted. Right ovary measures 3.2 x 2.1 x 3.6 cm with 15.4 x 17.4 mm and 13.2 x 14.7 mm follicles as well as 6 sub centimeter follicles between 3 and 9 mm. Left ovary measures 4.2 x 2.3 x 2.7 cm with 10.1 x 12.4 mm, 10.0 x 11.7 mm, 10.7 x 7.8 mm, 15.2 x 17.4 mm, 10.2 x 10.5 mm, 9.0 x 11.3 mm, 7.7 x 11.6 mm, 11.5 x 10.6 mm, and 13.4 x 8.5 mm follicles. Four sub centimeter follicles between 5 and 9 mm are also identified. Trace pelvic free fluid. Impression: Follicular study as described above. Electronically Signed by Davie Hogan MD 06/24/2019 07:58 A
== END ==
LOC: M RAD 06:12
PROVIDERS: ATTEND Obstetrics & Gynecology Reproductive Endocrinology
DX: E28.9 Ovarian dysfunction, unspecified (principal)

== ENCOUNTER → 2019-06-26 | Outpatient (CLI) | payer BC ==
--- NOTE | 2019-06-26 07:55 | REPVR ---
PROCEDURE INFORMATION: Exam: US Pelvis, Transvaginal Exam date and time: 06/26/2019 6:48 AM Age: 33 years old Clinical indication: Condition or disease; Other: Infertility TECHNIQUE: Imaging protocol: Real-time transvaginal pelvic ultrasound with image documentation. Transvaginal imaging was used for better evaluation of the endometrium and adnexa. COMPARISON: Transvaginal NON- US 06/24/2019 6:32 AM FINDINGS: Uterus/cervix: The uterus is retroverted, normal in size and echotexture. The uterus measures 7.4 x 3.9 x 4.5 cm in dimensions. No discrete fibroid or focal mass is seen. The endometrium measures 9 millimeters in thickness. Right adnexa: The right ovary is normal in size and echotexture. 4.8 x 3.1 x 3.3 cms. Normal arterial flow is seen in the right ovary without evidence for torsion. There are 6 simple follicular cysts measuring greater than 1 cm in the right ovary. These measure 19 x 19, 11 x 9, 14 x 11, 19 x 12, 14 x 11, and 12 x 10 mm in diameter. There are 7 subcentimeter follicles measuring between 3 and 6 mm in diameter. Left adnexa: The left ovary is normal in size and echotexture. 4.5 x 3.0 x 3.3 cms.Normal arterial flow is seen in the left ovary without evidence for torsion. There are 8 simple follicular cysts in the left ovary measuring greater than 1 cm. These measure 18 x 4, 15 x 10, 14 x 7, 11 x 7, 12 x 10, 16 x 14, 14 x 12, and 15 x 12 mm in diameter. There are 12 subcentimeter simple follicular cysts ranging in size between 2 and 8 mm in diameter. Free fluid: None. IMPRESSION: 1. Multiple follicular cysts in both ovaries as described above. 2. No discrete fibroid, adnexal masses or free fluid is seen. Electronically signed by: Gordon Paz On 06/26/2019 07:55:18 AM
[2019-06-26 10:57] LABS: ESTRADIOL 767.9 PG/ML; LUTEINIZING HORMONE 1.4 mIU/mL; PROGESTERONE 0.55 NG/ML
== END ==
LOC: M RAD 06:12
PROVIDERS: ATTEND Obstetrics & Gynecology Reproductive Endocrinology
DX: E28.9 Ovarian dysfunction, unspecified (principal)

== ENCOUNTER → 2019-07-10 | Outpatient (CLI) | payer BC ==
[2019-07-10 09:34] LABS: ESTRADIOL 491.3 PG/ML; PROGESTERONE 42.72 NG/ML
== END ==
LOC: M LAB 06:08
PROVIDERS: ATTEND Obstetrics & Gynecology Reproductive Endocrinology
DX: E28.9 Ovarian dysfunction, unspecified (principal)

== ENCOUNTER → 2019-07-14 | Outpatient (CLI) | payer BC ==
[2019-07-14 07:36] LABS: HCG, SERUM QUANTITATIVE < 1.0 MIU/ML
[2019-07-14 10:08] LABS: PROGESTERONE 33.92 NG/ML
== END ==
LOC: M LAB 06:38
PROVIDERS: ATTEND Obstetrics & Gynecology Reproductive Endocrinology
DX: E28.9 Ovarian dysfunction, unspecified (principal)

== ENCOUNTER → 2019-07-21 | Outpatient (CLI) | payer BC ==
--- NOTE | 2019-07-21 07:22 | REPVR ---
PROCEDURE INFORMATION: Exam: US Pelvis, Transvaginal Exam date and time: 07/21/2019 6:42 AM Age: 33 years old Clinical indication: Screening exam; Follicle study; Additional info: Ovarion dysfunction TECHNIQUE: Imaging protocol: Real-time transvaginal pelvic ultrasound with image documentation. Transvaginal imaging was used for better evaluation of the endometrium and adnexa. COMPARISON: Transvaginal NON- US 06/26/2019 6:23 AM FINDINGS: Uterus/cervix: Uterus measures 6.2 x 3.4 x 4.6 cm. Endometrial stripe is 5 mm. Right adnexa: Right ovary measures 3.5 x 3.4 x 3 cm. Two adjacent complex right ovarian cysts measuring up to 1.4 cm in diameter. Multiple subcentimeter right ovarian follicles measuring up to 9 mm in diameter are noted. Left adnexa: Left ovary measures 3.8 x 2.2 x 2.5 cm. Multiple subcentimeter left ovarian follicles measuring up to 7 mm in diameter. Free fluid: None. IMPRESSION: Multiple subcentimeter bilateral ovarian follicles. Two adjacent complex right ovarian cysts. Electronically signed by: Abdirahman Macias On 07/21/2019 07:22:18 AM
[2019-07-21 07:51] LABS: HCG, SERUM QUANTITATIVE < 1.0 MIU/ML
[2019-07-21 10:19] LABS: ESTRADIOL 28.1 PG/ML; FOLLICLE STIMULATING HORMONE 6.7 mIU/mL
[2019-07-21 10:54] LABS: PROGESTERONE 0.32 NG/ML
== END ==
LOC: M RAD 06:17
PROVIDERS: ATTEND Obstetrics & Gynecology Reproductive Endocrinology
DX: E28.9 Ovarian dysfunction, unspecified (principal)

== ENCOUNTER → 2019-07-28 | Outpatient (CLI) | payer BC ==
--- NOTE | 2019-07-28 07:09 | REPVR ---
PROCEDURE INFORMATION: Exam: US Pelvis, Transvaginal Exam date and time: 07/28/2019 6:43 AM Age: 33 years old Clinical indication: Screening exam; Follicle study; Additional info: Ovarion dysfunction TECHNIQUE: Imaging protocol: Real-time transvaginal pelvic ultrasound with image documentation. Transvaginal imaging was used for better evaluation of the endometrium and adnexa. Other technique: Real-time transabdominal and transvaginal pelvic ultrasound (complete) with color spectral Doppler evaluation and image documentation. Transvaginal imaging was used for better evaluation of the endometrium and adnexa. COMPARISON: Transvaginal NON- US 07/21/2019 6:23 AM FINDINGS: Uterus/cervix: Uterus is normal, measuring 6.8 x 3.7 x 4.9 cm. Endometrial stripe is normal measuring 8.8 mm. Right adnexa: Normal right ovary measuring 3.7 x 2.6 x 3.1 cm, with a volume of 14.9 mL. There are approximately 24 follicles in the 1.8 to 6.0 mm range. No mass. Normal ovarian blood flow. Left adnexa: Normal left ovary measuring 4.5 x 2.2 x 2.2 cm with a volume of 10.9 mL. There are approximately 17 follicles in the 2.0 to 6.4 mm range No mass. Normal ovarian blood flow. Free fluid: None. IMPRESSION: 1. Features suggestive of polycystic ovarian disease of the ovaries, with bilateral enlarged ovaries each with a borderline excessive number of follicles. 2. No acute findings. No significant interval change since the previous pelvic ultrasound exam from 07/21/2019. Electronically signed by: Avinash Hardwick On 07/28/2019 07:08:44 AM
[2019-07-28 08:24] LABS: ESTRADIOL 213.6 PG/ML; LUTEINIZING HORMONE 5.5 mIU/mL; PROGESTERONE 0.21 NG/ML
== END ==
LOC: M RAD 06:14
PROVIDERS: ATTEND Obstetrics & Gynecology Reproductive Endocrinology
DX: E28.9 Ovarian dysfunction, unspecified (principal)

== ENCOUNTER → 2019-08-07 | Outpatient (CLI) | payer BC ==
[2019-08-07 08:25] LABS: ESTRADIOL 199.3 PG/ML; PROGESTERONE 26.05 NG/ML
== END ==
LOC: M LAB 06:25
PROVIDERS: ATTEND Obstetrics & Gynecology Reproductive Endocrinology
DX: E28.9 Ovarian dysfunction, unspecified (principal)

== ENCOUNTER → 2019-08-12 | Outpatient (CLI) | payer BC ==
[2019-08-12 08:03] LABS: HCG, SERUM QUANTITATIVE < 1.0 MIU/ML
[2019-08-12 09:03] LABS: PROGESTERONE 24.42 NG/ML
== END ==
LOC: M LAB 07:10
PROVIDERS: ATTEND Obstetrics & Gynecology Reproductive Endocrinology
DX: Z32.00 Encounter for pregnancy test, result unknown (principal)

== ENCOUNTER → 2019-08-19 | Outpatient (CLI) | payer BC ==
--- NOTE | 2019-08-19 07:25 | REPVR ---
PROCEDURE INFORMATION: Exam: US Pelvis, Transvaginal Exam date and time: 08/19/2019 6:44 AM Age: 33 years old Clinical indication: Screening exam; Follicle study; Additional info: Ovarion dysfunction TECHNIQUE: Imaging protocol: Real-time transvaginal pelvic ultrasound with image documentation. Transvaginal imaging was used for better evaluation of the endometrium and adnexa. Other technique: Real-time transabdominal and transvaginal pelvic ultrasound (complete) with color spectral Doppler evaluation and image documentation. Transvaginal imaging was used for better evaluation of the endometrium and adnexa. COMPARISON: Transvaginal NON- US 07/28/2019 6:21 AM FINDINGS: Uterus/cervix: Uterus is normal, measuring 6.8 x 3.4 x 4.9 cm. Endometrial stripe is normal measuring 4 mm in thickness. The endometrial stripe has a smooth appearance. Right adnexa: No mass. Normal ovarian blood flow. The right ovary measures 3.3 x 2.3 x 2.6 cm with a volume of 10.3 mL. This is borderline enlarged. The previous right ovarian volume from the prior ultrasound exam from 07/28/2019 measured 14.9 mL. Multiple, at least 19 small follicles are seen in the periphery of the right ovary in the 1.9 to 7.6 mm size range. Left adnexa: No mass. Normal ovarian blood flow. The left ovary measures 4.1 x 2.3 x 2.1 cm with a volume of 10.4 mL. This is borderline enlarged, relatively unchanged since the previous ultrasound exam from 07/28/2019. Multiple, at least 13 small follicles are seen in the periphery of the left ovary in the 1.8 to 6.8 mm size range. Free fluid: No free fluid seen in the pelvic cul-de-sac. IMPRESSION: 1. Normal uterus and endometrial stripe. 2. Borderline enlargement of both ovaries with multiple small peripheral follicles in the ovaries . The number of follicles is just below the accepted number for polycystic ovarian disease, which is currently greater than or equal to 20 follicles per ovary. Electronically signed by: Avinash Hardwick On 08/19/2019 07:25:16 AM
[2019-08-19 07:55] LABS: HCG, SERUM QUANTITATIVE < 1.0 MIU/ML
[2019-08-19 08:53] LABS: ESTRADIOL 27.9 PG/ML; LUTEINIZING HORMONE 4.4 mIU/mL; PROGESTERONE 0.23 NG/ML
[2019-08-19 08:54] LABS: FOLLICLE STIMULATING HORMONE 6.8 mIU/mL
== END ==
LOC: M RAD 06:17
PROVIDERS: ATTEND Obstetrics & Gynecology Reproductive Endocrinology
DX: E28.9 Ovarian dysfunction, unspecified (principal)

== ENCOUNTER → 2019-08-26 | Outpatient (CLI) | payer BC ==
--- NOTE | 2019-08-26 08:14 | REP ---
Clinical: Infertility. Comparison: 08/19/2019. Technique: Transvaginal examination. Findings: Uterus measures 7.7 x 3.8 x 4.8 cm. Endometrial complex demonstrates trilaminar appearance and measures 7.7 mm thickness. Right ovary measures 3.4 x 2.2 x 2.2 cm with 16 follicles measuring between 1.6 and 6.9 mm. Left ovary measures 3.2 x 2.5 x 2.3 cm with 16 follicles measuring between 2.2 and 5.7 mm. Impression: Bilateral sub centimeter follicles. Electronically Signed by Davie Hogan MD 08/26/2019 08:06 A
[2019-08-26 10:59] LABS: ESTRADIOL 174.7 PG/ML; LUTEINIZING HORMONE 5.6 mIU/mL; PROGESTERONE 0.21 NG/ML
== END ==
LOC: M RAD 07:20
PROVIDERS: ATTEND Obstetrics & Gynecology Reproductive Endocrinology
DX: E28.9 Ovarian dysfunction, unspecified (principal)

== ENCOUNTER → 2019-09-07 | Outpatient (CLI) | payer BC ==
[2019-09-07 10:15] LABS: ESTRADIOL 192.6 PG/ML; PROGESTERONE 18.75 NG/ML
== END ==
LOC: M LAB 07:17
PROVIDERS: ATTEND Obstetrics & Gynecology Reproductive Endocrinology
DX: E28.9 Ovarian dysfunction, unspecified (principal)

== ENCOUNTER → 2019-09-10 | Outpatient (CLI) | payer BC ==
[2019-09-10 08:30] LABS: PROGESTERONE 22.45 NG/ML
== END ==
LOC: M LAB 07:10
PROVIDERS: ATTEND Obstetrics & Gynecology Reproductive Endocrinology
DX: Z32.00 Encounter for pregnancy test, result unknown (principal)

== ENCOUNTER → 2019-09-14 | Outpatient (CLI) | payer BC ==
[2019-09-14 10:49] LABS: PROGESTERONE 16.67 NG/ML
== END ==
LOC: M LAB 07:02
PROVIDERS: ATTEND Obstetrics & Gynecology Reproductive Endocrinology
DX: Z32.01 Encounter for pregnancy test, result positive (principal)

== ENCOUNTER → 2019-12-22 | Outpatient (CLI) | payer BC ==
[2020-02-09 10:43] LABS: BASO % 0.3 % (0.0-1.0); EOS % 0.5 % (0.0-3.0); HEMATOCRIT 31.5 % (36.0-47.0); HEMOGLOBIN 9.9 g/dl (12.0-15.5); LYMPH # 1.3 10^3/uL (1.5-5.0); LYMPH % 21.7 % (24.0-44.0); MEAN CORPUSCULAR HEMOGLOBIN 25.9 pg (27.0-33.0); MEAN CORPUSCULAR HGB CONC 31.4 g/dl (32.0-36.5); MEAN CORPUSCULAR VOLUME 82.5 fl (80.0-96.0); MONO # 0.5 10^3/uL (0.0-0.8); MONO % 8.5 % (0.0-5.0); NEUTROPHILS % 68.8 % (36.0-66.0); PLATELET COUNT, AUTOMATED 285 10^3/uL (150-450); RED BLOOD COUNT 3.82 10^6/uL (4.00-5.40); WHITE BLOOD COUNT 5.8 10^3/uL (4.0-10.0)
[2020-03-13 08:38] LABS: CALCIUM LEVEL 8.4 MG/DL (8.5-10.1); FOLATE > 24.0 NG/ML (>5.4); GLUCOSE CHALLENGE TEST 1 HOUR 101 MG/DL (LESS THAN 140); HEPATITIS B SURFACE ANTIGEN NEGATIVE (NEGATIVE); HEPATITIS C VIRUS ABY INDEX 0.1 INDEX (<0.8); HIV 1&2 SCREEN CENTAUR NEGATIVE (NEGATIVE); TOTAL 25(OH) VITAMIN D 38.6 NG/ML (30.0-100.0); VITAMIN B12 LEVEL 482 PG/ML (247-911)
== END ==
LOC: M LAB 07:18
PROVIDERS: ATTEND Advanced Practice Midwife
DX: Z34.80 Encounter for supervision of other normal pregnancy, unspecified trimester (principal); Z3A.00 Weeks of gestation of pregnancy not specified

== ENCOUNTER → 2019-12-30 | Outpatient (REF) | payer BC | LOC: M LAB REF 15:15 | PROVIDERS: ATTEND Advanced Practice Midwife | DX: Z34.82 Encounter for supervision of other normal pregnancy, second trimester (principal); Z3A.00 Weeks of gestation of pregnancy not specified ==

== ENCOUNTER → 2020-02-11 | Outpatient (CLI) | payer BC ==
[2020-02-11 09:09] LABS: BASO % 0.2 % (0.0-1.0); EOS % 0.7 % (0.0-3.0); HEMATOCRIT 34.4 % (36.0-47.0); LYMPH # 1.3 10^3/uL (1.5-5.0); LYMPH % 22.4 % (24.0-44.0); MEAN CORPUSCULAR HEMOGLOBIN 27.4 pg (27.0-33.0); MEAN CORPUSCULAR VOLUME 85.8 fl (80.0-96.0); MONO # 0.4 10^3/uL (0.0-0.8); MONO % 6.7 % (0.0-5.0); NEUTROPHILS # 3.9 10^3/uL (1.5-8.5); NEUTROPHILS % 69.5 % (36.0-66.0); PLATELET COUNT, AUTOMATED 250 10^3/uL (150-450); RED BLOOD COUNT 4.01 10^6/uL (4.00-5.40); WHITE BLOOD COUNT 5.7 10^3/uL (4.0-10.0)
== END ==
LOC: M LAB 08:00
PROVIDERS: ATTEND Advanced Practice Midwife
DX: Z34.82 Encounter for supervision of other normal pregnancy, second trimester (principal); Z3A.00 Weeks of gestation of pregnancy not specified

== ENCOUNTER → 2020-02-29 | Outpatient (CLI) | payer BC ==
[2020-02-29 07:34] LABS: IRON (FE) 88 UG/DL (50-170)
[2020-02-29 07:46] LABS: HEMOGLOBIN A1c 4.8 %
[2020-02-29 11:40] LABS: TOTAL 25(OH) VITAMIN D 30.6 NG/ML (30.0-100.0)
[2020-02-29 11:41] LABS: FOLATE > 24.0 NG/ML; VITAMIN B12 LEVEL 339 PG/ML
== END ==
LOC: M LAB 06:42
PROVIDERS: ATTEND Advanced Practice Midwife
DX: K90.9 Intestinal malabsorption, unspecified (principal)

== ENCOUNTER → 2020-03-28 | Outpatient (CLI) | payer BC ==
--- NOTE | 2020-03-28 11:58 | REP ---
INDICATION: GROWTH/PIERRE COMPARISON: 03/03/2020 TECHNIQUE: Transabdominal obstetrical ultrasound with color Doppler evaluation. FINDINGS: Examination demonstrates a single live intrauterine in cephalic presentation. motion is identified by technologist. Placenta is noted anterior and grade 2 without evidence for placenta previa or abruption. Amniotic fluid volume is normal. Cervix measures 4.1 cm in length and appears closed.. Gestational age by current measurements 32 weeks 4 days with VINAYAK 05/19/2020. FHR equals 149 beats per minute. Estimated weight by current biometric measurements 1996 grams (39th percentile). Amniotic fluid index: 16.1 cm (8.4-24.4) IMPRESSION: Single live advanced gestation in cephalic presentation demonstrating appropriate estimated weight and amniotic fluid index. <Electronically signed by Davie Hogan > 03/28/20 1157
== END ==
LOC: M WHC 07:43
PROVIDERS: ATTEND Advanced Practice Midwife
DX: O99.613 Diseases of the digestive system complicating pregnancy, third trimester (principal); K90.9 Intestinal malabsorption, unspecified; Z3A.32 32 weeks gestation of pregnancy

== ENCOUNTER → 2020-04-21 | Outpatient (REF) | payer BC | LOC: M SFHCWAGY 13:35 | PROVIDERS: ATTEND Advanced Practice Midwife | DX: Z34.93 Encounter for supervision of normal pregnancy, unspecified, third trimester (principal); Z3A.36 36 weeks gestation of pregnancy ==

== ENCOUNTER 2020-05-19 09:38 | Inpatient (IN) | payer BC ==
[~2020-05-19] VITALS: Ht 162.6 cm; Wt 95.0 kg
[2020-05-19] VITALS (69 sets, daily range): BP systolic 127–190; BP diastolic 59–113
--- OUTSIDE RECORDS SUMMARY | 2020-05-19 09:45 | CCD ---
Author Author [facility] Organization [facility] Address Unknown Phone Unavailable Care Team Providers Care Bundle Person Name Role Phone Aakash Brendan Unavailable PROBLEMS Type Condition ICD9-CM Code [id number] Code Onset Dates Condition S tatus SNOMED Code Notes Problem Supervision of other normal Z34.80 Ac tive 675006514 Problem Obesity complicating in third trimester O99.21 3 Active Problem Cervical high risk human papillomavirus (HPV) DN A test positive R87.810 Active 120169280 ALLERGIES Allergen (clinical drug ingredient) Drug/Non Drug Allergy do cumented on EMR Reaction Allergy Type Onset Date Status Penicillin unknown Non Drug Allergy Active ENCOUNTERS from 1983 to 2020-04-30 Encounter Location Date Provider Diagnosis [facility] [address] [place] [phone] Apr, Brendan Finn Encounter for superv ision of elderly multigravida in third trimester, antepartum O09.523 and 36 weeks gestation of Z3A.36 IMMUNIZATIONS Vaccine Route Administration Date Status TDAP 0.5mL (Boostrix) IM Intramuscular Feb 26, 2020 Administe red Influenza (6mo & up) Fluzone IM Intramuscular Feb 26, 2020 Ad ministered SOCIAL HISTORY Tobacco Use: Social History Observation Description Date Details (start date - stop date) Former Smoker Sex Assigned At : Social History Observation Description Sex Assigned At Unknown Language: Question Answer Notes Languages spoken: Ukrainian Domestic Violence: Question Answer Notes Status: No history of abuse Sexual Hx: Question Answer Notes Had sex in the last 12 months (vaginal, oral, or anal)? Yes LMP: 06/16/2019 Have you ever had an STD? Yes with Men only Other? Yes Alcohol Screening: Question Answer Notes Did you have a drink containing alcohol in the past year? Ye s Points 1 Interpretation Negative How often did you have six or more drinks on one occas ion in the past year? Never (0 points) How many drinks did you have on a typica l day when you were drinking in the past year? 1 or 2 (0 points) How often did you have a drink containing alcohol in t he past year? Monthly or less (1 point) Tobacco Use: Question Answer Notes Are you a: former smoker Quit 2010 REASON FOR REFERRAL No Information VITAL SIGNS Weight 203.2 lbs Apr, Weight-kg 92.17 kg Apr, Height 63 in Apr, BMI 35.995 kg/m2 Apr, Blood pressure systolic 124 mm Hg Apr, Blood pressure diastolic 82 mm Hg Apr, MEDICATIONS Medication SIG (Take, Route, Frequency, Duration) Notes Start Da te End Date Status 27-1 MG 1 tablet Orally Once a day Active Metformin HCl 500 MG 1 tablet with a meal Orally BID Active PROCEDURES No Information RESULTS No Results REASON FOR VISIT 2WK PN MEDICAL (GENERAL) HISTORY Type Description Date Medical History Infertility Medical History Endometriosis Medical History PCOS Surgical History Gastric Bypass Surgical History Laparoscopy Hospitalization History surgical related Goals Section No Information Health Concerns No Information MEDICAL EQUIPMENT No Information MENTAL STATUS No Information FUNCTIONAL STATUS No Information ASSESSMENTS Encounter Date Diagnosis Assessment Notes Treatment Notes Treatm ent Clinical Notes Apr, Encounter for supervision of elderly multigravida in third trimester, antepartum (ICD-10 - O09.523) Apr, 36 weeks gestation of (ICD-10 - Z3A.36 ) PLAN OF TREATMENT Next Appt Details Provider Name:Jesus Turner, 2020-05-03 0 8:20:00 AM, [address] [place], [address], Insurance Providers Payer Name Payer Address Payer Phone Insured Name Patient Relati onship to Insured Coverage Start Date Coverage End Date BCBS JAYDE MCKEON PPO [phone] [facility] [email or web address] [id number] ARLETTE BACH
--- OUTSIDE RECORDS SUMMARY | 2020-05-19 09:45 | CCD ---
Author Author [facility] Organization [facility] Address Unknown Phone Unavailable Care Team Providers Care Rewards Consultant Name Role Phone Jesus Turner Unavailable PROBLEMS Type Condition ICD9-CM Code [id number] Code Onset Dates Condition S tatus SNOMED Code Notes Problem Supervision of other normal Z34.80 Ac tive 090880556 Problem Obesity complicating in third trimester O99.21 3 Active Problem Cervical high risk human papillomavirus (HPV) DN A test positive R87.810 Active 497413107 ALLERGIES Allergen (clinical drug ingredient) Drug/Non Drug Allergy do cumented on EMR Reaction Allergy Type Onset Date Status Penicillin unknown Non Drug Allergy Active ENCOUNTERS from 1983 to 2020-05-04 Encounter Location Date Provider Diagnosis [facility] Care [address] [place] [phone] Apr, Jesus Turner Decreased move ment affecting management of in third trimester O36.8130 IMMUNIZATIONS Vaccine Route Administration Date Status TDAP 0.5mL (Boostrix) IM Intramuscular Feb 26, 2020 Administe red Influenza (6mo & up) Fluzone IM Intramuscular Feb 26, 2020 Ad ministered SOCIAL HISTORY Tobacco Use: Social History Observation Description Date Details (start date - stop date) Former Smoker Sex Assigned At : Social History Observation Description Sex Assigned At Unknown Language: Question Answer Notes Languages spoken: Israeli Domestic Violence: Question Answer Notes Status: No [...] FOR REFERRAL No Information VITAL SIGNS Weight . lbs Apr, Height 63 in Apr, BMI . kg/m2 Apr, Blood pressure systolic 122 mm Hg Apr, Blood pressure diastolic 82 mm Hg Apr, MEDICATIONS Medication SIG (Take, Route, Frequency, Duration) Notes Start Da te End Date Status 27-1 MG 1 tablet Orally Once a day Active Metformin HCl 500 MG 1 tablet with a meal Orally BID Active Iron 325 (65 Fe) MG 1 tablet Orally Once a day Active PROCEDURES No Information RESULTS No Results REASON FOR VISIT DC MOVEMENT/NST MEDICAL (GENERAL) HISTORY Type Description Date Medical History Infertility Medical History Endometriosis Medical History PCOS Surgical History Gastric Bypass Surgical History Laparoscopy Hospitalization History surgical related Goals Section No Information Health Concerns No Information MEDICAL EQUIPMENT No Information MENTAL STATUS No Information FUNCTIONAL STATUS No Information ASSESSMENTS Encounter Date Diagnosis Assessment Notes Treatment Notes Treatm ent Clinical Notes Apr, Decreased movement aff ecting management of in third trimester (ICD-10 - O36.8130) PLAN OF TREATMENT Treatment Notes Test Name Order Date non-stress test 2020-05-04 Next Appt Details Provider Name:Astrid Antoni Guan, 2020-05-12 09:00:00 AM, [address] [place], [phone], Insurance Providers Payer Name Payer Address Payer Phone Insured Name Patient Relati onship to Insured Coverage Start Date Coverage End Date BCBS JAYDE MCKEON PPO [phone] [facility] [employer] [address] [place] [id number] ARLETTE BACH
--- OUTSIDE RECORDS SUMMARY | 2020-05-19 09:46 | CCD ---
Author Author [facility] Organization [facility] Address Unknown Phone Unavailable Care Team Providers Care Production Planning Supervisor Name Role Phone RhinaAstrid xie Unavailable PROBLEMS Type Condition ICD9-CM Code [id number] Code Onset Dates Condition S tatus SNOMED Code Notes Problem Supervision of other normal Z34.80 Ac tive 454888118 Problem Obesity complicating in third trimester O99.21 3 Active Problem Cervical high risk human papillomavirus (HPV) DN A test positive R87.810 Active 820540507 ALLERGIES Allergen (clinical drug ingredient) Drug/Non Drug Allergy do cumented on EMR Reaction Allergy Type Onset Date Status Penicillin unknown Non Drug Allergy Active ENCOUNTERS from 1983 to 2020-03-24 Encounter Location Date Provider Diagnosis [facility] Breast Care [address] [place] [phone] Mar, Astrid Guan Obesity complicat ing in third trimester O99.213 ; 30 weeks gestation of Z3A.30 ; Bariatric surgery status complicating , third trimester O99.843 and Elderly multigravida in third trimester O09.523 IMMUNIZATIONS Vaccine Route Administration Date Status TDAP 0.5mL (Boostrix) IM Intramuscular Feb 26, 2020 Administe red Influenza (6mo & up) Fluzone IM Intramuscular Feb 26, 2020 Ad ministered SOCIAL HISTORY Tobacco Use: Social History Observation Description Date Details (start date - stop date) Former Smoker Sex Assigned At : Social History Observation Description Sex Assigned At Unknown Language: Question Answer Notes Languages spoken: Welsh Domestic Violence: Question Answer Notes Status: No [...] FOR REFERRAL No Information VITAL SIGNS Weight 191.6 lbs Mar, Weight-kg 86.91 kg Mar, Height 63 in Mar, BMI 33.94 kg/m2 Mar, Blood pressure systolic 104 mm Hg Mar, Blood pressure diastolic 70 mm Hg Mar, MEDICATIONS Medication SIG (Take, Route, Frequency, Duration) Notes Start Da te End Date Status 27-1 MG 1 tablet Orally Once a day Active ClomiPHENE Citrate 50 MG 2 tablets days 5-9 Orally Once a day fo r 5 days Apr, Not-Taking Metformin HCl 500 MG 1 tablet with [...] Notes Treatment Notes Treatm ent Clinical Notes Mar, Obesity complicating pregnan cy in third trimester (ICD-10 - O99.213) Mar, 30 weeks gestation of (ICD-10 - Z3A.30 ) Mar, Bariatric surgery status com plicating , third trimester (ICD-10 - O99.843) Mar, Elderly multigravida in third trimester (ICD-10 - O09.523) PLAN OF TREATMENT Next Appt Details 2 Weeks Reason:return ob Provider Name:Jesus Turner, 2020-03-25 1 0:00:00 AM, [address] [place], [address], Follow Up:2 Weeksreturn ob Insurance Providers Payer Name Payer Address Payer Phone Insured Name Patient Relati onship to Insured Coverage Start Date Coverage End Date BCOCTAVIO MCKEON PPO [phone] [facility] [place] [address] ARLETTE BACH
--- OUTSIDE RECORDS SUMMARY | 2020-05-19 09:46 | CCD ---
Author Author [facility] Organization [facility] Address Unknown Phone Unavailable Care Team Providers Care Quality Assurance Supervisor Name Role Phone Freida Astrid Unavailable PROBLEMS Type Condition ICD9-CM Code [id number] Code Onset Dates Condition S tatus SNOMED Code Notes Problem Supervision of other normal Z34.80 Ac tive 579117155 Problem Obesity complicating in third trimester O99.21 3 Active Problem Cervical high risk human papillomavirus (HPV) DN A test positive R87.810 Active 224784746 ALLERGIES Allergen (clinical drug ingredient) Drug/Non Drug Allergy do cumented on EMR Reaction Allergy Type Onset Date Status Penicillin unknown Non Drug Allergy Active ENCOUNTERS from 1983 to 2020-04-22 Encounter Location Date Provider Diagnosis [facility] Breast Care [address] [place] [phone] Apr, Astrid Guan 36 weeks gestatio n of Z3A.36 ; Obesity complicating in third trimester O99.213 and Supervision of elderly multigravida, third trimester O09.523 IMMUNIZATIONS Vaccine Route Administration [...] Unknown Language: Question Answer Notes Languages spoken: Slovenian Domestic Violence: Question Answer Notes Status: No [...] FOR REFERRAL No Information VITAL SIGNS Weight 199 lbs Apr, Height 63 in Apr, BMI 35.251 kg/m2 Apr, Blood pressure systolic 116 mm Hg Apr, Blood pressure diastolic 72 mm Hg Apr, MEDICATIONS Medication SIG (Take, [...] Treatment Notes Treatm ent Clinical Notes Apr, 36 weeks gestation of (ICD-10 - Z3A.36 ) Apr, Obesity complicating pregnan cy in third trimester (ICD-10 - O99.213) Apr, Supervision of elderly multi , third trimester (ICD-10 - O09.523) PLAN OF TREATMENT Treatment Notes Test Name Order Date GROUP B STREP CULTURE 2020-04-22 Next Appt Details 1 Week Reason:return ob Provider Name:Brendan Finn, 2020-04-26 02:00:00 PM, [address] [place], [address], Follow Up:1 Weekreturn ob Insurance Providers Payer Name Payer Address Payer Phone Insured Name Patient Relati onship to Insured Coverage Start Date Coverage End Date BCBS [place] PPO [phone] [place] [employer] [address] [facility] [id number] ARLETTE BACH
--- OUTSIDE RECORDS SUMMARY | 2020-05-19 09:46 | CCD ---
Author Author [facility] Organization [facility] Address Unknown Phone Unavailable Care Team Providers Care Bellperson Name Role Phone Jesus Turner Unavailable PROBLEMS Type Condition ICD9-CM Code [id number] Code Onset Dates Condition S tatus SNOMED Code Notes Problem Supervision of other normal Z34.80 Ac tive 117647321 Problem Obesity complicating in third trimester O99.21 3 Active Problem Cervical high risk human papillomavirus (HPV) DN A test positive R87.810 Active 030224311 ALLERGIES Allergen (clinical drug ingredient) Drug/Non Drug Allergy do cumented on EMR Reaction Allergy Type Onset Date Status Penicillin unknown Non Drug Allergy Active ENCOUNTERS from 1983 to 2020-04-06 Encounter Location Date Provider Diagnosis [facility] Women[facility] Breast Care [address] [place] [phone] Mar, Jesus Turner Malabsorption K90.9 and Advanced maternal age in multigravida O09.529 IMMUNIZATIONS Vaccine Route Administration Date Status TDAP 0.5mL (Boostrix) IM Intramuscular Feb 26, 2020 Administe red Influenza (6mo & up) Fluzone IM Intramuscular Feb 26, 2020 Ad ministered SOCIAL HISTORY Tobacco Use: Social History Observation Description Date Details (start date - stop date) Former Smoker Sex Assigned At : Social History Observation Description Sex Assigned At Unknown Language: Question Answer Notes Languages spoken: Serbian Domestic Violence: Question Answer Notes Status: No [...] FOR REFERRAL No Information VITAL SIGNS Weight 193 lbs Mar, Weight-kg 87.54 kg Mar, Height 63 in Mar, BMI 34.188 kg/m2 Mar, Blood pressure systolic 128 mm Hg Mar, Blood pressure diastolic 82 mm Hg Mar, MEDICATIONS Medication SIG (Take, Route, Frequency, Duration) Notes Start Da te End Date Status 27-1 MG 1 tablet Orally Once a day Active ClomiPHENE Citrate 50 MG 2 tablets days 5-9 Orally Once a day fo r 5 days Apr, Not-Taking Metformin HCl 500 MG 1 tablet with a meal Orally BID Active PROCEDURES No Information RESULTS Component Value Reference Range WWBC OBS LIMITED US Reviewed date:03/28/2020 16:24:31 Interpretation: Performing Lab:[facility],[address] [place]], ,[place] [id number] REASON FOR VISIT 2WK PN MEDICAL (GENERAL) [...] Treatment Notes Treatm ent Clinical Notes Mar, Malabsorption (ICD-10 - K90.9) Mar, Advanced maternal age in multigravida (ICD-10 - O09.529) PLAN OF TREATMENT Next Appt Details 2 Weeks Reason: Provider Name:Jesus Turner, 2020-04-08 1 1:00:00 AM, [address] [place], [address], Insurance Providers Payer Name Payer Address Payer Phone Insured Name Patient Relati onship to Insured Coverage Start Date Coverage End Date BCBS [place] PPO [phone] [facility] [place] [address] ARLETTE BACH
--- OUTSIDE RECORDS SUMMARY | 2020-05-19 09:46 | CCD ---
Author Author [facility] Organization [facility] Address Unknown Phone Unavailable Care Team Providers Care Glassblower Name Role Phone Jesus Turner Unavailable PROBLEMS Type Condition ICD9-CM Code [id number] Code Onset Dates Condition S tatus SNOMED Code Notes Problem Supervision of other normal Z34.80 Ac tive 281322124 Problem Obesity complicating in third trimester O99.21 3 Active Problem Cervical high risk human papillomavirus (HPV) DN A test positive R87.810 Active 672111153 ALLERGIES Allergen (clinical drug ingredient) Drug/Non Drug Allergy do cumented on EMR Reaction Allergy Type Onset Date Status Penicillin unknown Non Drug Allergy Active ENCOUNTERS from 1983 to 2020-04-13 Encounter Location Date Provider Diagnosis [facility] Women[facility] Breast Care [address] [place] [phone] Apr, Jesus Turner Supervision of elder ly primigravida, third trimester O09.513 and 34 weeks gestation of Z3A.34 IMMUNIZATIONS Vaccine Route Administration Date Status TDAP 0.5mL (Boostrix) IM Intramuscular Feb 26, 2020 Administe red Influenza (6mo & up) Fluzone IM Intramuscular Feb 26, 2020 Ad ministered SOCIAL HISTORY Tobacco Use: Social History Observation Description Date Details (start date - stop date) Former Smoker Sex Assigned At : Social History Observation Description Sex Assigned At Unknown Language: Question Answer Notes Languages spoken: Armenian Domestic Violence: Question Answer Notes Status: No [...] FOR REFERRAL No Information VITAL SIGNS Weight 197 lbs Apr, Height 63 in Apr, BMI 34.897 kg/m2 Apr, Blood pressure systolic 114 mm Hg Apr, Blood pressure diastolic 68 mm Hg Apr, MEDICATIONS Medication SIG (Take, Route, Frequency, Duration) Notes Start Da te End Date Status Metformin HCl 500 MG 1 tablet with a meal Orally BID Active ClomiPHENE Citrate 50 MG 2 tablets days 5-9 Orally Once a day fo r 5 days Apr, Not-Taking 27-1 MG 1 tablet Orally Once a [...] Treatment Notes Treatm ent Clinical Notes Apr, Supervision of elderly primi , third trimester (ICD-10 - O09.513) Apr, 34 weeks gestation of (ICD-10 - Z3A.34 ) PLAN OF TREATMENT Next Appt Details 2 Weeks Reason: Provider Name:Astrid D [facility], 2020-04-21 10:00:00 AM, [address] [place], [address], Insurance Providers Payer Name Payer Address Payer Phone Insured Name Patient Relati onship to Insured Coverage Start Date Coverage End Date BCBS [place] PPO [phone] [facility] [place] [address] ARLETTE BACH
--- OUTSIDE RECORDS SUMMARY | 2020-05-19 09:47 | CCD ---
Author Author [facility] Organization [facility] Address Unknown Phone Unavailable Care Team Providers Care Office Assistance Name Role Phone Josep CHINCHILLA MD Unavailable Unavailable Josep CHINCHILLA MD Unavailable Unavailable Josep CHINCHILLA MD Unavailable Unavailable Josep CHINCHILLA MD Unavailable Unavailable Josep CHINCHILLA MD Unavailable Unavailable Josep CHINCHILLA MD Unavailable Unavailable Josep CHINCHILLA MD Unavailable Unavailable Josep CHINCHILLA MD Unavailable Unavailable Josep CHINCHILLA MD Unavailable Unavailable Josep CHINCHILLA MD Unavailable Unavailable Josep CHINCHILLA MD Unavailable Unavailable Josep CHINCHILLA MD Unavailable Unavailable Josep CHINCHILLA MD Unavailable Unavailable Josep CHINCHILLA MD Unavailable Unavailable Josep CHINCHILLA MD Unavailable Unavailable Josep CHINCHILLA MD Unavailable Unavailable Josep CHINCHILLA MD Unavailable Unavailable Josep CHINCHILLA MD Unavailable Unavailable Josep CHINCHILLA MD Unavailable Unavailable Josep CHINCHILLA MD Unavailable Unavailable Josep CHINCHILLA MD Unavailable Unavailable Josep CHINCHILLA MD Unavailable Unavailable Josep CHINCHILLA MD Unavailable Unavailable Josep CHINCHILLA MD Unavailable Unavailable Josep CHINCHILLA MD Unavailable Unavailable Joesp CHINCHILLA MD Unavailable Unavailable Josep CHINCHILLA MD Unavailable Unavailable Josep CHINCHILLA MD Unavailable Unavailable Josep CHINCHILLA MD Unavailable Unavailable Josep CHINCHILLA MD Unavailable Unavailable Josep CHINCHILLA MD Unavailable Unavailable Josep CHINCHILLA MD Unavailable Unavailable Josep CHINCHILLA MD Unavailable Unavailable Josep CHINCHILLA MD Unavailable Unavailable Josep CHINCHILLA MD Unavailable Unavailable Josep CHINCHILLA MD Unavailable Unavailable Josep CHINCHILLA MD Unavailable Unavailable Josep CHINCHILLA MD Unavailable Unavailable Josep CHINCHILLA MD Unavailable Unavailable Josep CHINCHILLA MD Unavailable Unavailable Josep CHINCHILLA MD Unavailable Unavailable Josep CHINCHILLA MD Unavailable Unavailable Josep CHINCHILLA MD Unavailable Unavailable Josep CHINCHILLA MD Unavailable Unavailable Josep CHINCHILLA MD Unavailable Unavailable Josep CHINCHILLA MD Unavailable Unavailable Josep CHINCHILLA MD Unavailable Unavailable Josep CHINCHILLA MD Unavailable Unavailable Josep CHINCHILLA MD Unavailable Unavailable Josep CHINCHILLA MD Unavailable Unavailable Josep CHINCHILLA MD Unavailable Unavailable Josep CHINCHILLA MD Unavailable Unavailable Josep CHINCHILLA MD Unavailable Unavailable Josep CHINCHILLA MD Unavailable Unavailable Josep CHINCHILLA MD Unavailable Unavailable Josep CHINCHILLA MD Unavailable Unavailable Josep CHINCHILLA MD Unavailable Unavailable Josep CHINCHILLA MD Unavailable Unavailable Josep CHINCHILLA MD Unavailable Unavailable Josep CHINCHILLA MD Unavailable Unavailable Josep CHINCHILLA MD Unavailable Unavailable Josep CHINCHILLA MD Unavailable Unavailable Josep CHINCHILLA MD Unavailable Unavailable Josep CHINCHILLA MD Unavailable Unavailable Josep CHINCHILLA MD Unavailable Unavailable Josep CHINCHILLA MD Unavailable Unavailable Josep CHINCHILLA MD Unavailable Unavailable Josep CHINCHILLA MD Unavailable Unavailable Josep CHINCHILLA MD Unavailable Unavailable Josep CHINCHILLA MD Unavailable Unavailable Josep CHINCHILLA MD Unavailable Unavailable Josep CHINCHILLA MD Unavailable Unavailable Josep CHINCHILLA MD Unavailable Unavailable Josep CHINCHILLA MD Unavailable Unavailable Josep CHINCHILLA MD Unavailable Unavailable Josep CHINCHILLA MD Unavailable Unavailable Josep CHINCHILLA MD Unavailable Unavailable Josep CHINCHILLA MD Unavailable Unavailable Josep CHINCHILLA MD Unavailable Unavailable Josep CHINCHILLA MD Unavailable Unavailable Josep CHINCHILLA MD Unavailable Unavailable Josep CHINCHILLA MD Unavailable Unavailable Josep CHINCHILLA MD Unavailable Unavailable VINCE SMITH MD Unavailable Unavailable VINCE SMITH MD Unavailable Unavailable VINCE SMITH MD Unavailable Unavailable VINCE SMITH MD Unavailable Unavailable VINCE SMITH MD Unavailable Unavailable VINCE SMITH MD Unavailable Unavailable VINCE SMITH MD Unavailable Unavailable VINCE SMITH MD Unavailable Unavailable VINCE SMITH MD Unavailable Unavailable VINCE SMITH MD Unavailable Unavailable VINCE SMITH MD Unavailable Unavailable VINCE SMITH MD Unavailable Unavailable VINCE SMITH MD Unavailable Unavailable VINCE SMITH MD Unavailable Unavailable VINCE SMITH MD Unavailable Unavailable VINCE SMITH MD Unavailable Unavailable VINCE SMITH MD Unavailable Unavailable VINCE SMITH MD Unavailable Unavailable VINCE SMITH MD Unavailable Unavailable VINCE SMITH MD Unavailable Unavailable VINCE SMITH MD Unavailable Unavailable VINCE SMITH MD Unavailable Unavailable VINCE SMITH MD Unavailable Unavailable VINCE SMITH MD Unavailable Unavailable VINCE SMITH MD Unavailable Unavailable VINCE SMITH MD Unavailable Unavailable VINCE SMITH MD Unavailable Unavailable VINCE SMITH MD Unavailable Unavailable VINCE SMITH MD Unavailable Unavailable VINCE SMITH MD Unavailable Unavailable VINCE SMITH MD Unavailable Unavailable VINCE SMITH MD Unavailable Unavailable VINCE SMITH MD Unavailable Unavailable VINCE SMITH MD Unavailable Unavailable VINCE SMITH MD Unavailable Unavailable VINCE SMITH MD Unavailable Unavailable VINCE SMITH MD Unavailable Unavailable VINCE SMITH MD Unavailable Unavailable VINCE SMITH MD Unavailable Unavailable VINCE SMITH MD Unavailable Unavailable VINCE SMITH MD Unavailable Unavailable VINCE SMITH MD Unavailable Unavailable VINCE SMITH MD Unavailable Unavailable VINCE SMITH MD Unavailable Unavailable VINCE SMITH MD Unavailable Unavailable VINCE SMITH MD Unavailable Unavailable VINCE SMITH MD Unavailable Unavailable VINCE SMITH MD Unavailable Unavailable VINCE SMITH MD Unavailable Unavailable VINCE SMITH MD Unavailable Unavailable VINCE SMITH MD Unavailable Unavailable VINCE SMITH MD Unavailable Unavailable VINCE SMITH MD Unavailable Unavailable VINCE SMITH MD Unavailable Unavailable VINCE SMITH MD Unavailable Unavailable VINCE SMITH MD Unavailable Unavailable VINCE SMITH MD Unavailable Unavailable VINCE SMITH MD Unavailable Unavailable VINCE SMITH MD Unavailable Unavailable VINCE SMITH MD Unavailable Unavailable VINCE SMITH MD Unavailable Unavailable VINCE SMITH MD Unavailable Unavailable VINCE SMITH MD Unavailable Unavailable VINCE SMITH MD Unavailable Unavailable VINCE SMITH MD Unavailable Unavailable VINCE SMITH MD Unavailable Unavailable VINCE SMITH MD Unavailable Unavailable VINCE SMITH MD Unavailable Unavailable VINCE SMITH MD Unavailable Unavailable VINCE SMITH MD Unavailable Unavailable VINCE SMITH MD Unavailable Unavailable VINCE SMITH MD Unavailable Unavailable VINCE SMITH MD Unavailable Unavailable VINCE SMITH MD Unavailable Unavailable VINCE SMITH MD Unavailable Unavailable VINCE SMITH MD Unavailable Unavailable VINCE SMITH MD Unavailable Unavailable VINCE SMITH MD Unavailable Unavailable VINCE SMITH MD Unavailable Unavailable VINCE SMITH MD Unavailable Unavailable VINCE SMITH MD Unavailable Unavailable VINCE SMITH MD Unavailable Unavailable VINCE SMITH MD Unavailable Unavailable VINCE SMITH MD Unavailable Unavailable VINCE SMITH MD Unavailable Unavailable VINCE SMITH MD Unavailable Unavailable VINCE SMITH MD Unavailable Unavailable VINCE SMITH MD Unavailable Unavailable Re-disclosure Warning The records that you are about to access may contain information from federally-assisted alcohol or drug abuse programs. If such information is present, then the following federally mandated warning applies: This information has been disclosed to you from records protected by federal confidentiality rules (42 CFR part 2). The federal rules prohibit you from making any further disclosure of this information unless further disclosure is expressly permitted by the written consent of the person to whom it pertains or as otherwise permitted by 42 CFR part 2. A general authorization for the release of medical or other information is NOT sufficient for this purpose. The Federal rules restrict any use of the information to criminally investigate or prosecute any alcohol or drug abuse patient.The records that you are about to access may contain highly sensitive health information, the redisclosure of which is protected by Article 27-F of the [facility] Public Health law. If you continue you may have access to information: Regarding HIV / AIDS; Provided by facilities licensed or operated by the [facility] Office of Mental Health; or Provided by the [facility] Office for People With Developmental Disabilities. If such information is present, then the following [facility] mandated warning applies: This information has been disclosed to you from confidential records which are protected by state law. State law prohibits you from making any further disclosure of this information without the specific written consent of the person to whom it pertains, or as otherwise permitted by law. Any unauthorized further disclosure in violation of state law may result in a fine or nursing home sentence or both. A general authorization for the release of medical or other information is NOT sufficient authorization for further disc losure. Family History Family Member Name Family Member Gender Family Member Status Date o f Status Description Data Source(s) Unknown Unknown Problem MEDENT ([facility], ) Unknown Unknown Problem MEDENT ([facility], ) Unknown Unknown Problem MEDENT ([facility], ) Unknown Unknown Problem MEDENT ([facility], ) Unknown Unknown Problem MEDENT ([facility], ) Unknown Unknown Problem MED[facility] ([facility]) Unknown Unknown Problem MED[facility] ([facility]) Unknown Unknown Problem MEDENT ([facility]) Unknown Unknown Problem MEDENT ([facility]) Encounters Encounter Providers Location Date Indications Data Source(s ) ( ESTOB) [facility] Est OB [address] [place] [address] 05/12/2020 12:00:00 AM EST eCW1 ([facility]) ( ESTOB) [facility] Est OB [address] [place] [address] 05/04/2020 12:00:00 AM EST eCW1 ([facility]) ( ESTOB) enter Est OB [address] [place] [id number] 04/26/2020 12:00:00 AM EST eCW1 ([facility]) ( ESTOB) enter Est OB [address] [place] [address] 04/21/2020 12:00:00 AM EST eCW1 ([facility]) ( ESTOB) [facility] Est OB [address] [place] [id number] 04/08/2020 12:00:00 AM EST eCW1 ([facility]) ( ESTOB) [facility] Est OB [address] [place] [address] 03/25/2020 12:00:00 AM EST eCW1 ([facility]) ( ESTOB) [facility] Est OB [address] [place] [address] 03/10/2020 12:00:00 AM EST eCW1 ([facility]) ( ESTOB) [facility] Est OB [address] [place] [id number] 02/26/2020 12:00:00 AM EDT eCW1 ([facility]) Outpatient Attender: HERMES VIDAL 09/11/2019 09:01:[address] [facility] Outpatient Referrer: KATHY SMITH MD 09/08/2019 06:07:00 A M EDT [facility] Outpatient Referrer: KATHY SMITH MD 08/31/2019 07:07:00 A M EDT [facility] Outpatient Referrer: KATHY SMITH MD 08/28/2019 06:09:00 A M EDT [facility] Outpatient Referrer: KATHY SMITH MD 08/19/2019 06:34:00 A M EDT [facility] Outpatient Referrer: KATHY SMITH MD 07/24/2019 06:01:00 A M EDT [facility] Outpatient Referrer: KATHY SMITH MD 07/12/2019 07:20:00 P M EDT [facility] Outpatient Attender: HERMES CHINCHILLA MD 07/10/2019 08:01:41 P [facility] Outpatient Referrer: KATHY SMITH MD 07/02/2019 12:30:00 P M EST [facility] [address] [address] 07/01/2019 12:00:00 AM EST eCW1 ([facility]) [address] [address] 06/16/2019 12:00:00 AM EST eCW1 ([facility]) Outpatient Referrer: KATHY SMITH MD 05/24/2019 10:30:00 P M [facility] Outpatient Attender: HERMES CHINCHILLA MD 04/21/2019 05:16:01 A [facility] Outpatient Attender: HERMES CHINCHILLA MD 04/17/2019 08:47:01 A [facility] Outpatient Attender: HERMES CHINCHILLA MD 04/17/2019 07:47:02 A [facility] Outpatient Attender: HERMES CHINCHILLA MD 04/17/2019 07:47:00 A [facility] Outpatient Attender: EHRMES CHINCHILLA MD 04/15/2019 01:59:00 P [facility] Outpatient Attender: HERMES CHINCHILLA MD 04/15/2019 01:58:00 P [facility] Outpatient Attender: HERMES CHINCHILLA MD 04/15/2019 01:57:01 P [facility] Outpatient Attender: HERMES CHINCHILLA MD 04/15/2019 01:54:00 P [facility] Outpatient Attender: HERMES CHINCHILLA MD 04/15/2019 01:53:01 P [facility] Outpatient Attender: HERMES CHINCHILLA MD FP 04/15/2019 01:51:01 P [facility] Outpatient Attender: HERMES CHINCHILLA MD FP 04/15/2019 09:54:00 A [facility] [address] [place] [address] 04/15/2019 12:00:00 AM EST eCW1 ([facility]) Outpatient Attender: HERMES CHINCHILLA MD FP 04/07/2019 06:11:02 A [facility] Outpatient Attender: HERMES CHINCHILLA MD FP 04/07/2019 06:11:00 A [facility] Outpatient Attender: HERMES CHINCHILLA MD FP 03/31/2019 08:13:01 A [facility] Outpatient Attender: HERMES CHINCHILLA MD FP 03/31/2019 08:13:00 A [facility] Immunizations Vaccine Date Status Description Data Source(s) New in 2011. IIV4 02/26/2020 09:09:00 AM EDT [facility] New in 2011. IIV4 02/26/2020 09:09:00 AM EDT completed [facility]) New in 2011. IIV4 02/26/2020 09:09:00 AM EDT completed [facility]) New in 2011. IIV4 02/26/2020 09:09:00 AM EDT completed [facility]CW[facility]) New in 2011. IIV4 02/26/2020 09:09:00 AM EDT completed [facility]CW[facility]) New in 2011. IIV4 02/26/2020 09:09:00 AM EDT completed [facility]CW[facility]) New in 2011. IIV4 02/26/2020 09:09:00 AM EDT completed [facility]CW[facility]) New in 2011. IIV4 02/26/2020 09:09:00 AM EDT completed [facility]) Tdap 02/26/2020 08:56:00 AM EDT completed e CW1 ([facility]) Tdap 02/26/2020 08:56:00 AM EDT completed e CW1 ([facility]) Tdap 02/26/2020 08:56:00 AM EDT completed e CW1 ([facility]) Tdap 02/26/2020 08:56:00 AM EDT completed e CW1 ([facility]) Tdap 02/26/2020 08:56:00 AM EDT completed e CW1 ([facility]) Tdap 02/26/2020 08:56:00 AM EDT completed e CW1 ([facility]) Tdap 02/26/2020 08:56:00 AM EDT completed e CW1 ([facility]) Tdap 02/26/2020 08:56:00 AM EDT completed e CW1 ([facility]) Medications Medication Brand Name Start Date Product Form Dose Route Admi nistrative Instructions Pharmacy Instructions Status Indications Reaction Description Data Source(s) Clomiphene Citrate 50 MG Oral Tablet ClomiPHENE Citrat e 50 MG ClomiPHENE Citrate 50 MG 04/16/2019 12:00:00 AM EST suspended ClomiPHENE Citrate 50 MG eCW1 ([facility]) Clomiphene Citrate 50 MG Oral Tablet ClomiPHENE Citrat e 50 MG ClomiPHENE Citrate 50 MG 04/16/2019 12:00:00 AM EST suspended ClomiPHENE Citrate 50 MG eCW1 ([facility]) Clomiphene Citrate 50 MG Oral Tablet ClomiPHENE Citrat e 50 MG ClomiPHENE Citrate 50 MG 04/16/2019 12:00:00 AM EST suspended ClomiPHENE Citrate 50 MG eCW1 [facility]) Clomiphene Citrate 50 MG Oral Tablet ClomiPHENE Citrat e 50 MG ClomiPHENE Citrate 50 MG 04/16/2019 12:00:00 AM EST suspended ClomiPHENE Citrate 50 MG eCW1 ([facility]) Insurance Providers Payer name Policy type / Coverage type Policy ID Covered libertarian ID Covered libertarian's relationship to carvajal Policy [place] Plan Information [employer]/307 [id number] [place] [id number] EXCELLUS BCBS B [id number] P [id number] [id number] [place] [place] 302/307 [id number] [place] [id number] [place]/307 [id number] [place] [id number] [employer] [place] 302/307 [id number] [employer] BCBS P [id number] M [id number] Self Pay P [id number] S [id number] [employer] BCYO P [id number] S [id number] [employer] Health Maintenance Organization (HMO) [id number] Family Dependent [id number] [employer] Health Maintenance Organization (HMO) [id number] Family Dependent [id number] [employer] Health Maintenance Organization (HMO) Family Dependent [employer] [place]/307 [id number] SP [id number] [employer] O [id number] S [id number] [employer] INSUR[employer] WORKER COMP [id number] SP [id number] [place] INN [id number] SP [id number] [employer] Medigap Part B Self Excell[employer] BCBS Health Maintenance Organization (HMO) Self EXCELLUS BCBS B [id number] S [id number] [facility] [id number] SP [id number] BCBS/Excellus Commercial Self SELF PAY UNAVAILABLE SP UNAVAILA BLE AETNA [facility] [place] [id number] SP [id number] MEDICAID [id number] SP [id number] O BLUE [id number] SP [id number] AETNA [facility] [place] [id number] SP [id number] Problems, Conditions, and Diagnoses Code Display Name Description Problem Type Effective Dates Data Source(s) O99.213 Obesity complicating , third tr imester Obesity complicating in third trimester Problem 03/10/2020 12:00:00 AM EST [facility]) Z34.80 care Supervision of other normal P kimberly 02/22/2020 12:00:00 AM EDT eCW1 ([facility]) R87.810 [id number] Cervical high risk h uman papillomavirus (HPV) DNA test positive Problem 06/12/2019 12:00:00 AM EST eCW1 ([facility]) R87.810 [id number] Cervical high risk h uman papillomavirus (HPV) DNA test positive Problem 06/12/2019 12:00:00 AM EST eCW1 ([facility]) Surgeries/Procedures Procedure Description Date Indications Data Source(s) INFLUENZA VIRUS VACC SPLIT PRSRV FREE 3 YRS/> IM 02/25 12:00:00 AM EDT eCW1 [facility]) Immunization: Boostrix 0.5mL IM (TDAP) 02/26/2020 12:0 0:00 AM EDT eCW1 ([facility]) Results ID Date Data Source [facility] OBS LIMITED 03/28/2020 12:00:00 AM EST eCW1 ([facility]) Name Value Range Interpretation Code Description Data Pili rce(s) Supporting Document(s) [facility] OBS LIMITED [facility] ([facility]) ID Date Data Source [id number] 03/03/2020 12:00:00 AM EDT [facility] Elena [facility] Patient Name: SHAMIR [id number] [place] Date of : 1985[address] Date of Exam: 03/03/2020HERMELINDA Montoya [id number]#: Fax: [phone] EXAM: US OB, FOLLOW-UP (GROWTH, ORGAN SYSTEMS)/FETUSCLINICAL INFORMATION: Followup growth. 3, Para 1, Ab 1LMP: UnknownExpected GA/1st sono = 28 weeks 2 days, VINAYAK (expected) = 05/24/2020Today's sono findings = 30 weeks 1 days, VINAYAK (today's sono) = 05/11/2020Fetal Number: SingletonFetal Position: VertexFetal Heart Rate: 156 BPMS/D Ratio: 2.80Placental Position: Anterior, Grade 1Amniotic Fluid Volume: Normal, PIERRE: 17.4 cm (9.3 - 22.9)Cervix Length: 3.2 cmFETAL MEASUREMENTS:BPD: 7.8 cm = 31 weeks 1 dayHC: 28.0 cm = 30 weeks 5 daysAC: 25.3 cm = 29 weeks 4 daysFL: 5.6 cm = 29 weeks 3 daysEstimated Weight: 1443 grams, 3 pounds 2 ounces, 77th percentilePatient had gastric bypass and has had very little weight gain.Accredited by the [employer] in Obstetrical Ult rasound.ALESHIA Mars/Shaneka herman for referring SHAMIR BACH to our office. Electronically Signed - DANIEL BEY DO 03/04/20 15:58 Name Value Range Interpretation Code Description Data Pili rce(s) Supporting Document(s) ID Date Data Source [id number] FOL 02/29/2020 12:00:00 AM EDT eCW1 ([facility]) Name Value Range Interpretation Code Description Data Pili rce(s) Supporting Document(s) > 24.0 eCW1 ([facility]) 339 eCW1 ([facility]) ID Date Data Source VITAMIN [id number] 02/29/2020 12:00:00 AM EDT eCW1 ([facility] hospital) Name Value Range Interpretation Code Description Data Pili rce(s) Supporting Document(s) 30.6 30.0-100.0 eCW1 ([facility]) ID Date Data Source [id number] 02/29/2020 12:00:00 AM EDT eCW1 ([facility] hospital) Name Value Range Interpretation Code Description Data Pili rce(s) Supporting Document(s) Hemoglobin A1c/Hemoglobin.total in Blood 4.8 eCW1 ([facility]) ID Date Data Source IRON (FE) 02/29/2020 12:00:00 AM EDT eCW1 ([facility]) Name Value Range Interpretation Code Description Data Pili rce(s) Supporting Document(s) 88 50-170 eCW1 ([facility]) ID Date Data Source [id number] 12/24/2019 12:00:00 AM EDT [facility] Rachna Gallardo Cnm Patient Name: SHAMIR [id number] [place] Date of : 1985[place] [address] Date of Exam: 12/24/2019PH#: Fax: [phone] EXAM: US OB 2ND & 3RD TRIMESTER, COMPLETE- SINGLE FETUSCLINICAL INFORMATION: Supervision of . 3, Para 1, Ab 1LMP: UnknownToday's sono findings = 19 weeks 4 days, VINAYAK (today's sono) = 05/15/2020Fetal Number: SingletonFetal Position: BreechFetal Heart Rate: 155 BPMPlacental Position: Anterior, Grade 1Amniotic Fluid Volume: NormalCervix Length: 3.1 cmFETAL MEASUREMENTS:BPD: 4.6 cm = 20 weeks 0 daysHC: 16.9 cm = 19 weeks 4 daysAC: 14.0 cm = 19 weeks 3 daysFL: 3.0 cm = 19 weeks 2 daysHL: 3.0 cm = 19 weeks 5 daysEstimated Weight: 288 grams, 10 ounces, 89th percentileThe following structures are visualized and are unremarkable:Cranium, cavum, cerebellum, posterior fossa-cisterna magna, choroid plexus,midline falx, lateral ventricles, orbits, face-profile, face-lips/mouth,neck, 4-chamber heart, RVOT, LVOT, diaphragm, stomach, kidneys, bladder,abdominal wall, cord insertion, umbilical arteries, 3-vessel cord, colorDoppler, spine and upper and lower extremities.Patient had a previous ectopic . Patient had an IUF procedure.Accredited by the [employer] in Obstetrical Ultrasound.ALESHIA Mars/Shaneka herman for referring SHAMIR BACH to our office. Electronically Signed - DANIEL BEY DO 12/24/19 11:34 Name Value Range Interpretation Code Description Data Pili rce(s) Supporting Document(s) ID Date Data Source [id number] 04/17/2019 07:48:15 AM [facility] Measurements & CalculationsHeight: 63 inches (5 ft. 3 in.) 160.02 cm Weight: 196 pounds 89.09 kg Body Mass Index (BMI): 34.85BMI Interpretation: ObeseBody Surface Area (BSA): 1.92Vital SignsTemperature: 97.9F oral Pulse Rate: 82 beats/minuteRespiratory Rate: 17 respirations/minuteBlood Pressure: 123/85 right arm sitting automaticO2 Saturation: 98% room air 1 L/minVital Signs performed by: Ramona Ackerman MA, April 17, 2019 7:58 AMInitial Intake Information from: patientRoom #: 15Infectious Disease- Travel Have you or your sexual partner travelled outside of the country recently? NoSmoking, Tobacco or Smoke Exposure StatusSmoke Status: never smokerTobacco Use: NoPassive Smoke Exposure: YesMenstrual HistoryLast Menstrual Period (LMP): 04/13/2019Any possibility of ? NoHealthcare HistorySince your last office visit...Have you been admitted to the hospital? NoHave you been to an emergency room (ER) or urgent care clinic? NoHave you seen another healthcare provider? Yes - OBGYN, IVFHave you seen a dentist? NoIntake performed by: Ramona Ackerman MA, April 17, 2019 7:56 AMRate Your HealthIn general, would you say your health is? GoodPain AssessmentAre you currently having any pain which... You would like your provider to address? No Affects your activity level? NoDepression Screening - PHQ-2Over the last two weeks, have you... Had little interest or pleasure in doing things? Not at all Been feeling down, depressed, or hopeless? Not at all PHQ-2 Score: 0Anxiety Screening - SHERYL-2Over the last two weeks, have you been... Feeling nervous, anxious, or on edge? Not at all Unable to stop or control worrying? Not at all SHERYL-2 Score: 0Infectious Disease- Travel Cont. Any possibility of ? NoScreening, Brief Intervention, & Referral to Treatment (SBIRT)Pre- Screening Questions How many times have you have 4 or more drinks in a day? 0How many times have you used an illegal drug or used a prescription medication for a non-medical reason? 0Performed by: Ramona Ackerman MA, April 17, 2019 7:57 AMPatient History Medical History:AsthmaSurgical History:Gastric Bypass: 06/2012Family History:Family History of AlcoholismFamily History of AnemiaFamily History of ArthritisFamily History of AsthmaFH DiabetesFH Heart DiseaseFH HypertensionFH High CholesterolFH MigrainesFamily History of Severe AllergiesFH StrokeFH Other CancerFamily History of Cervical CancerFH HeadachesSocial/Personal History: Smoking Status: never smokerChief Complaintf ollow-up visitHistory of Present Illness (HPI)33 yo female here for a follow up for lab results - results are reassuring. A1C is 5.4.Does not have any other concerns, is going back to IVF [place]. Has had a rash on the right arm that comes and goes. Hx Metabolic syndrome, prediabetes, PCOS, 8/10 in severity, worse wtih poor diet, better with compliance, non- radiaring, not assoc with cardiac or neurologic sx's.Have advised to watch the use of new soaps, detergents, enviormental factors due to rash & itching. Hx of Lyme's- Rx'd- wants surveillance labs with next visitTransitions of Care InboundProblem ReviewProblem List was reviewed and/or updated during this visit.Medication Reconciliation & ReviewMedication List was reviewed and/or updated during this visit, including review of any rewl-fmt-fyrjmsi medications, herbal therapies, and/or supplements.Allergy ReviewAllergy List was reviewed and/or updated during this visit.Provider Calculated and Reviewed all Clinical Protocols for patient today. Review of Systems General: GEN: No night sweats, weight loss, fevers, chillsEyes: No vision changesEars: No hearing lossNose: No sinus painThroat: No sore throatResp: No sob, wheezingCV: No chest painGI: No abdominal painGU: No dysuria, urinary frequencyMusculoskeletal: No myalgias, arthralgiasNeuro: No SPENCER, unilateral paresthesias, weaknessLympatics: No Lymph node swellingEndocr ine: No polydipsia, polyuriaPhysical ExamGeneral Appearance: well nourished, well hydrated, no acute distressEyes, External: conjunctivae and lids normal, EOMIExternal Ears: normal, no lesions or deformitiesHearing: grossly intactOtoscopy: canals clear, tympanic membranes intact, no fluid, light reflex intact bilaterallyExternal Nose: normal, no lesions or deformitiesNasal: mucosa, septum, and turbinates normal, nares patentLips/Teeth/Gums: normal dentition, no gingival inflammation, no labial lesionsPharynx: tongue normal, posterior pharynx without erythema or exudate, no thrush/aphthous ulcerRespiratory, Auscultation: clear to auscultation bilaterally; no rales, rhonchi, or wheezesRespiratory, Effort: no intercostal retractions or use of accessory musclesCardiovascular, Auscultation: S1, S2 audible; no murmur, rub, or gallop; RRRPeripheral Circulation: no clubbing, cyanosis, edema, or varicositiesAbdomen: soft, non-tender, no masses, bowel sounds normalGait & Station: normalSkin, Inspection: no rashes, lesions, or ulcerationsOrientation: oriented to time, place, and personMood & Affect: no depression, anxiety, or agitationJudgment & Insight: intactCare Management Plan Transitions of CareInboundRate Your HealthIn general, would you say your health is? GoodAssessment & Plan Problems:Assessed:Metabolic syndrome X (ICD-277.7) (ACV30-H60.81) Assessment: Instructions: Counseled on 1800 boris ADA, low cholesterol, low salt diets,exercise. Counseled on GLP-1 medication, risks and benefits. Patient has no family hisotry of medullary thyroid cancer/ MEN syndromes and wishes to proceed. Patient education and training completed/ scheduled. All questions answeredLyme disease (ICD-088.81) (PTW99-F72.20) Assessment: Instructions: Counseled patient on all diagnoses/ treatments. Return to clinic/ ER for any worsening symptoms or concernsRx'd- wants surveillance labs with next drawPrediabetes (STL23-J67.03) Assessment: Instructions: Counseled on 1800 boris ADA, low cholesterol, low salt diets,exercise. Counseled on GLP-1 medication, risks and benefits. Patient has no family hisotry of medullary thyroid cancer/ MEN syndromes and wishes to proceed. Patient education and training completed/ scheduled. All questions answeredPolycystic ovary syndrome (ECP53-E02.2) Assessment: Instructions: Counseled patient on all diagnoses/ treatments. Return to clinic/ ER for any worsening symptoms or concernsCont f/u with OB/ Fertility specialistPatient Instructions/Care Plan: Metabolic syndrome X: Counseled on 1800 boris ADA, low cholesterol, low salt diets,exercise. Counse led on GLP-1 medication, risks and benefits. Patient has no family hisotry of medullary thyroid cancer/ MEN syndromes and wishes to proceed. Patient education and training completed/ scheduled. All questions answeredLyme disease: Counseled patient on all diagnoses/ treatments. Return to clinic/ ER for any worsening symptoms or concernsRx'd- wants surveillance labs with next drawPrediabetes: Counseled on 1800 boris ADA, low cholesterol, low salt diets,exercise. Counseled on GLP-1 medication, risks and benefits. Patient has no family hisotry of medullary thyroid cancer/ MEN syndromes and wishes to proceed. Patient education and training completed/ scheduled. All questions answeredPolycystic ovary syndrome: Counseled patient on all diagnoses/ treatments. Return to clinic/ ER for any worsening symptoms or concernsCont f/u with OB/ Fertility specialist Plan developed in collaboration with patient and/or familyMedications:METFORMIN HCL ER 750 MG ORAL TABLET EXTENDED RELEASE 24 HOURVITAMIN D 1000 UNIT ORAL TABLETVITAMIN D (ERGOCALCIFEROL) 66926 UNIT ORAL CAPSULEFLUCONAZOLE 150 MG ORAL TABLETDOXYCYCLINE HYCLATE 100 MG ORAL TABLET DELAYED RELEASEVENTOLIN HFA 108 (90 BASE) MCG/ACT INHALATION AEROSOL SOLUTIONAllergies:PCN (Critical)Orders:COMP METABOLIC PANEL [CPT-20396] HgBA1c [CPT-65511] LIPID PANEL [CPT-49847] Lyme Antibody [CPT-33772] Adult - Ofc Vst, EST, Level IV [CPT-19248] Follow-Up Return to clinic: in 90 days for f/uAdditional Follow-Up: Counseled patient on all diagnoses/ treatments. Return to clinic/ ER for any worsening symptoms or concernsClinical Visit Summary Declined Name Value Range Interpretation Code Description Data Pili rce(s) Supporting Document(s) ID Date Data Source [id number] 03/31/2019 07:12:[address] [facility] Name Value Range Interpretation Code Description Data Pili rce(s) Supporting Document(s) HGBA1C 5.4 % [facility] ID Date Data Source [id number] 03/31/2019 07:12:00 AM [facility] Name Value Range Interpretation Code Description Data Pili rce(s) Supporting Document(s) BG FASTING 77 mg/dL 70-100 [facility] Procedure Social History Code Duration Value Status Description Data Source(s ) Smoking 05/17/2020 12:00:00 AM EST Former Smoker completed Former Smoker [facility] ([facility] Smoking 05/04/2020 12:00:00 AM EST Former Smoker completed Former Smoker eCW1 ([facility]) Smoking 04/26/2020 12:00:00 AM EST Former Smoker completed Former Smoker eCW1 ([facility]) Smoking 04/21/2020 12:00:00 AM EST Former Smoker completed Former Smoker eCW1 ([facility]) Smoking 04/06/2020 12:00:00 AM EST Former Smoker completed Former Smoker eCW1 ([facility]) Smoking 03/24/2020 12:00:00 AM EST Former Smoker completed Former Smoker eCW1 ([facility]) Smoking 03/24/2020 12:00:00 AM EST Former Smoker completed Former Smoker eCW1 ([facility]) Smoking 03/07/2020 12:00:00 AM EST Former Smoker completed Former Smoker eCW1 ([facility]) Vital Signs ID Date Data Source UNK Name Value Range Interpretation Code Description Data Source(s) Diastolic blood pressure 80 mm[Hg] 80 mm[Hg] eCW1 ([facility]) Systolic blood pressure 130 mm[Hg] 130 mm[Hg] e 1 ([facility]) Body mass index (BMI) [Ratio] 36.243 kg/m2 36.2 43 kg/m2 [facility] ([facility]) Body height 63 [in_i] 63 [in_i] eCW1 ([facility]) Body weight 92.8 kg 92.8 kg W1 ([facility]) Body weight 204.6 [lb_av] 204.6 [lb_av] eCW1 ([facility]) Diastolic blood pressure 82 mm[Hg] 82 mm[Hg] eCW1 ([facility]) Systolic blood pressure 122 mm[Hg] 122 mm[Hg] e CW1 ([facility]) Body mass index (BMI) [Ratio] kg/m2 [facility]) Body height 63 [in_i] 63 [in_i] eCW1 ([facility]) Body weight [lb_av] eCW1 ([facility]) Diastolic blood pressure 82 mm[Hg] 82 mm[Hg] eCW1 ([facility]) Systolic blood pressure 124 mm[Hg] 124 mm[Hg] e CW1 ([facility]) Body mass index (BMI) [Ratio] 35.995 kg/m2 35.9 95 kg/m2 eCW1 ([facility]) Body height 63 [in_i] 63 [in_i] eCW1 ([facility]) Body weight 92.17 kg 92.17 kg eCW1 ([facility]) Body weight 203.2 [lb_av] 203.2 [lb_av] eCW1 ([facility]) Diastolic blood pressure 72 mm[Hg] 72 mm[Hg] eCW1 ([facility]) Systolic blood pressure 116 mm[Hg] 116 mm[Hg] e CW1 ([facility]) Body mass index (BMI) [Ratio] 35.251 kg/m2 35.2 51 kg/m2 eCW1 ([facility]) Body height 63 [in_i] 63 [in_i] eCW1 ([facility]) Body weight 199 [lb_av] 199 [lb_av] eCW1 ([facility]) Diastolic blood pressure 68 mm[Hg] 68 mm[Hg] eCW1 ([facility]) Systolic blood pressure 114 mm[Hg] 114 mm[Hg] e CW1 ([facility]) Body mass index (BMI) [Ratio] 34.897 kg/m2 34.8 97 kg/m2 eCW1 ([facility]) Body height 63 [in_i] 63 [in_i] eCW1 ([facility]) Body weight 197 [lb_av] 197 [lb_av] eCW1 ([facility]) Diastolic blood pressure 82 mm[Hg] 82 mm[Hg] eCW1 ([facility]) Systolic blood pressure 128 mm[Hg] 128 mm[Hg] e CW1 ([facility]) Body mass index (BMI) [Ratio] 34.188 kg/m2 34.1 88 kg/m2 eCW1 ([facility]) Body height 63 [in_i] 63 [in_i] eCW1 ([facility]) Body weight 87.54 kg 87.54 kg eCW1 ([facility]) Body weight 193 [lb_av] 193 [lb_av] eCW1 ([facility]) Diastolic blood pressure 70 mm[Hg] 70 mm[Hg] eCW1 ([facility]) Systolic blood pressure 104 mm[Hg] 104 mm[Hg] e CW1 ([facility]) Body mass index (BMI) [Ratio] 33.94 kg/m2 33.94 kg/m2 W1 ([facility]) Body height 63 [in_i] 63 [in_i] eCW1 ([facility]) Body weight 86.91 kg 86.91 kg eCW1 ([facility]) Body weight 191.6 [lb_av] 191.6 [lb_av] eCW1 ([facility]) Diastolic blood pressure 68 mm[Hg] 68 mm[Hg] eCW1 ([facility]) Systolic blood pressure 114 mm[Hg] 114 mm[Hg] e CW1 ([facility]) Body mass index (BMI) [Ratio] 33.905 kg/m2 33.9 05 kg/m2 W1 ([facility]) Body height 63 [in_i] 63 [in_i] eCW1 ([facility]) Body weight 191.4 [lb_av] 191.4 [lb_av] eCW1 ([facility])
--- OUTSIDE RECORDS SUMMARY | 2020-05-19 09:47 | CCD ---
Author Author [facility] Organization [facility] Address Unknown Phone Unavailable Care Team Providers Care [employer] Superintendent Name Role Phone Jesus Turner Unavailable PROBLEMS Type Condition ICD9-CM Code UZU08-HW Code Onset Dates Condition S tatus SNOMED Code Notes Problem Supervision of other normal Z34.80 Ac tive [id number] Problem Obesity complicating in third trimester O99.21 3 Active Problem Cervical high risk human papillomavirus (HPV) DN A test positive R87.810 Active [id number] ALLERGIES Allergen (clinical drug ingredient) Drug/Non Drug Allergy do cumented on EMR Reaction Allergy Type Onset Date Status Penicillin unknown Non Drug Allergy Active ENCOUNTERS from 1983 to 2020-03-21 Encounter Location Date Provider Diagnosis [facility] [address] [place] [address] Feb, Jesus Turner Malabsorption syndro me K90.9 ; Supervision of elderly multigravida in third trimester O09.523 ; Diseases of the digestive system complicating , third trimester O99.613 ; 28 weeks gestation of p juan daniel Z3A.28 and Encounter for immunization Z23 IMMUNIZATIONS Vaccine Route Administration Date Status TDAP 0.5mL (Boostrix) IM Intramuscular Feb 26, 2020 Administe red Influenza (6mo & up) Fluzone IM Intramuscular Feb 26, 2020 Ad ministered SOCIAL HISTORY Tobacco Use: Social History Observation Description Date Details (start date - stop date) Former Smoker Sex Assigned At : Social History Observation Description Sex Assigned At Unknown Language: Question Answer Notes Languages spoken: Faroese Domestic Violence: Question Answer Notes Status: No [...] FOR REFERRAL No Information VITAL SIGNS Weight 191.4 lbs Feb, Height 63 in Feb, BMI 33.905 kg/m2 Feb, Blood pressure systolic 114 mm Hg Feb, Blood pressure diastolic 68 mm Hg Feb, MEDICATIONS Medication SIG (Take, Route, Frequency, Duration) Notes Start Da te End Date Status 27-1 MG 1 tablet Orally Once a day Active ClomiPHENE Citrate 50 MG 2 tablets days 5-9 Orally Once a day fo r 5 days Apr, Not-Taking Metformin HCl 500 MG 1 tablet with a meal Orally BID Active PROCEDURES Procedure Date Ordered Result Body Site Immunization: Boostrix 0.5mL IM (TDAP) 2020-02-26 N/A Immunization: Fluzone (6mo & older) 0.5mL IM (Influenza) 2020-02 N/A RESULTS REASON FOR VISIT 4 WK PN MEDICAL (GENERAL) HISTORY Type Description Date Medical History Infertility Medical History Endometriosis Medical History PCOS Surgical History Gastric Bypass Surgical History Laparoscopy Hospitalization History surgical related Goals Section No Information Health Concerns No Information MEDICAL EQUIPMENT No Information MENTAL STATUS No Information FUNCTIONAL STATUS No Information ASSESSMENTS Encounter Date Diagnosis Assessment Notes Treatment Notes Treatm ent Clinical Notes Feb, Malabsorption syndrome (ICD-10 - K90.9) Feb, Supervision of elderly multi in third trimester (ICD-10 - O09.523) Feb, Diseases of the digestive sy stem complicating , third trimester (ICD-10 - O99.613) Feb, 28 weeks gestation of (ICD-10 - Z3A.28 ) Feb, Encounter for immunization (ICD-10 - Z23) PLAN OF TREATMENT Treatment Notes Test Name Order Date WWBC OBS LIMITED US 2020-03-21 FOLATE 2020-03-21 VITAMIN B12 LEVEL 2020-03-21 Next Appt Details 2 Weeks Reason: Provider Name:Jesus Turner, 2020-03-25 1 0:00:00 AM, [address] [place], [address], Insurance Providers Payer Name Payer Address Payer Phone Insured Name Patient Relati onship to Insured Coverage Start Date Coverage End Date BCBS [place] PPO [phone] [facility] [place] [address] ARLETTE BACH
[2020-05-19] MEDS ORDERED: LR 1,000 ML IV SCH (10:45)
[2020-05-19] MEDS ORDERED: LACTATED RINGER'S 1000 ML IV STA (10:45)
[2020-05-19 11:00] LABS: HEMATOCRIT 36.8 % (36.0-47.0); HEMOGLOBIN 12.4 g/dl (12.0-15.5); MEAN CORPUSCULAR HEMOGLOBIN 30.2 pg (27.0-33.0); MEAN CORPUSCULAR HGB CONC 33.7 g/dl (32.0-36.5); MEAN CORPUSCULAR VOLUME 89.8 fl (80.0-96.0); PLATELET COUNT, AUTOMATED 205 10^3/uL (150-450); WHITE BLOOD COUNT 7.4 10^3/uL (4.0-10.0)
[2020-05-19 11:26] LABS: ALT/SGPT 11 U/L (12-78); BILIRUBIN,TOTAL 0.2 MG/DL (0.2-1.0); CREATININE FOR GFR 0.66 MG/DL (0.55-1.30); GLOMERULAR FILTRATION RATE > 60.0 (>60); LDH LACTATE DEHYDROGENASE 164 U/L (84-246); URIC ACID 4.7 MG/DL (2.6-6.0)
[2020-05-19] MEDS ORDERED: miSOPROStol 50MCG 1/2 TABLET PV ONE ×2 (11:30→15:45)
--- NOTE | 2020-05-19 12:11 | HPEPDOC ---
Obstetrical History & Physical General Date of Admission May 19, 2020 at 09:38 History of Present Illness Mary is a 34yo with SIUP at 40w0d by IVF dating presenting for scheduled IOL. She is AMA (age 34) with hx of gastric bypass. On presentation she has elevated bp's, no SPENCER/vision changes/RUQ pain. No elevated bp's prior to today. She feels good movement, no regular ctx, no LOF, no vaginal bleeding. Chief Complaint: Induction of labor Information Provided By: Patient Care Care: Good Care Dating Final EDC: May 19, 2020 Antepartum Course Diagnos(e)s history gastric bypass, IVF , AMA Height (inches): 64 Past Medical History Past Obstetrical History : Past Obstetrical History: Primgravida (ectopic treated with MTX) AUTHORIZATION NURSE History: Abnormal Pap, Human papillomavirus(HPV) Past Medical History Medical History History of gastric bypass for obesity, starting BMI > 30, endometriosis, PCOS, infertility Surgical History: Diagnostic laparoscopy, Other (gastric bypass) Family History Significant Family History: No pertinent family hx Social History Marital Status: Family situation: Spouse/partner home Psychosocial History: No pertinent psych hx * Smoker: former Smoker (quit 2010) Alcohol: Denies Drugs: denies Imunizations Tdap status: current Influenza Status: current Allergies Coded Allergies: Penicillins (Verified Allergy, Unknown, 05/19/20) Medications Scheduled Cholecalciferol (Vitamin D3) (Vitamin D3) 1,000 Unit Tablet, 1 TAB PO DAILY Multivit-Min/Iron/Folic/Vit K1 (Centrum Chewables Adults Tab) 1 Chw Chw, 1 TAB PO DAILY Miscellaneous Medications Metformin HCl (Metformin HCl) 500 Mg Tablet, 500 MG PO Physical Examination Physical Examination GENERAL: Alert and oriented times three. ABDOMEN: Gravid and non-tender to touch. FETUS: Is vertex (VTX) by sterile vaginal examination (SVE) EXTREMITIES: No edema of BLE Laboratory Data [facility] Laboratory Tests 2 05/19/20 09:48: Serology Scanned Report Hepatitis B Testing 05/19/20 10:45: Nucleated Red Blood Cells % (auto) 0.0, Glomerular Filtration Rate > 60.0, Uric Acid 4.7, Total Bilirubin 0.2, Aspartate Amino Transf (AST/SGOT) 12, Alanine Aminotransferase (ALT/SGPT) 11L, Lactate Dehydrogenase 164 CBC/BMP Laboratory Tests 05/19/20 10:45 Pertinent Laboratoy Data Blood Type: O+ RBC Antibody Screen: Negative HIV: Negative Hepatitis B: Negative Hepatitis C: Negative Rapid Plasma Reagin: Nonreactive Rubella: Immune Chlamydia/Gonorrhea: Negative Group B Streptococcus: Negative Glucose Tolerance Test: 101 Anatomy Ultrasound Ultrasound Date: Mar 28, 2020 Placenta Location: Anterior Normal Anatomy: Yes (this was a growth scan, I cannot pull up anatomy scan report in [employer], presume normal anatomy since no follow ups required) Placenta Previa: No Steroid Therapy Steroid Therapy: No Vaginal Examination Dilation: 1cm (tight) Effacement: 50% Station: -3 Cervical Consistency: Medium Cervical Position: Posterior Presentation: Cephalic presentation Assessment Heart Rate (FHR): 140 Variability: Moderate Accelerations: Positive Decelerations: None Tocometer Contractions: No Assessment/Plan Assessment Mary is a 34yo with SIUP at 40w0d by IVF dating presenting for s cheduled IOL. She is AMA (age 34) with hx of gastric bypass. On presentation she has mild elevated bp's, no sx of pre-E. No elevated bp's prior to today. Pre-E panel and urine prot:creat ordered to determine if she has GHTN vs pre-E. Otherwise doing well. Cat I FHRT, no ctx. SCE tight 1/50/-3. 50mcg PV cytotec placed, will re-check in 4hr and attempt croft cervical bulb. Cephalic by SCE. Plan Admit and orient. 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 Diet: regular for breakfast then clear liquids Group B Streptococcus (GBS) negative Labs and intravenous (IV) per unit protocol. Counseled on croft bulb, cytotec, Pitocin and induction of labor (IOL). Lactated Ringers (LR): Bolus 500 mL, then at 125 mL/hr. Anticipate normal spontaneous delivery () Candidate for epidural in active labor, IV stadol/phenergan in latent labor Emani Martinez MD May 19, 2020 12:06
[2020-05-19 13:56] LABS: TOTAL PROTEIN,RANDOM URINE 50.6 MG/DL (0.0-12.0)
[2020-05-19] MEDS ORDERED: hydrALAZINE 20MG/ML 1ML VIAL (J0360 PER 20MG) IV ONE (14:30)
[2020-05-19] MEDS ORDERED: CALCIUM GLUCONATE 1,000 MG in D5W MINI-BAG PLUS 100 ML IV PRN (15:00)
[2020-05-19] MEDS ORDERED: MAG Sulf (L&D) 4 GM/100 ML 4 GM in IV 1 EA IV ONE (15:00)
[2020-05-19] MEDS: LR 1,000 ML IV SCH (15:15)
[2020-05-19] MEDS: MAG Sulf (OBGYN) 20GM/500ML 20,000 MG in IV 1 EA IV SCH (15:43)
--- NOTE | 2020-05-19 16:09 | IPNPDOC ---
Text Note Date of Service The patient was seen on 05/19/20. NOTE Intrapartum Note Mary has pre-eclampsia with severe features based on recurrent severe range bp's and urine prot:creat 0.49. She received 5mg IV hydralazine x1 and then MgSO4 was started 4g/2g, now her bp's are mild range. She still denies SPENCER/vision changes/abdominal pain. She only had cramping after first dose of 50mcg PV cytotec. Mild range bp's Cat I FHRT with +accels, -decels, mod jose [place]: irregular ctx SCE: /-3. Croft cervical bulb placed with 40cc NS and another 50mcg PV cytotec Croft bladder catheter was placed by RN, urine is yellow/clear Discussed dx of pre-E with severe features with patient Will continue MgSO4 2g/hr with neuro checks and CEFM Will continue to monitor bp's and give IV anti-HTN med if needed Will place croft cervical bulb to traction and in 4hr either re-dose cytotec or start pitocin Safe to proceed Emani Martinez MD VSGabrielle I+O Gabrielle CRUZ I+O Laboratory Tests 05/19/20 10:45 Vital Signs Date Time Temp Pulse Resp B/P (MAP) Pulse Ox O2 Delivery O2 Flow Rate FiO2 05/19/20 14:40 169/100 05/19/20 13:43 86 18 05/19/20 09:58 98.2 Emani Martinez MD May 19, 2020 16:08
[2020-05-19] MEDS ORDERED: LABETALOL 100MG/20ML VIAL IV STA (16:30)
[2020-05-19] MEDS ORDERED: PROMETHAZINE INJ 25 MG/ML VIAL (J2550) IV PRN (17:30)
[2020-05-19] MEDS ORDERED: miSOPROStol 25MCG 1/4 TABLET PO SCH (17:30)
[2020-05-19] MEDS ORDERED: BUTORPHANOL 2 MG/ML INJ (J0595) IV PRN (17:30)
[2020-05-19] MEDS ORDERED: hydrALAZINE 20MG/ML 1ML VIAL (J0360 PER 20MG) IV STA (18:11)
[2020-05-19] MEDS: miSOPROStol 25MCG 1/4 TABLET PO SCH ×2 (19:56→23:50)
[2020-05-19] MEDS ORDERED: LABETALOL 200 MG TAB PO ONE (22:00)
[2020-05-19] MEDS ORDERED: LABETALOL 200 MG TAB PO SCH (22:00)
[2020-05-19] MEDS ORDERED: FENTANYL 2MCG/ML ROPIVACAINE 0.2% IN 0.9% NACL 100ML IVBAG As Ordered ONE (23:43)
[2020-05-20] VITALS (82 sets, daily range): BP systolic 98–183; BP diastolic 54–111
[2020-05-20] MEDS ORDERED: diphenhydrAMINE 50MG/ML VIAL (J1200) IV PRN ×2 (00:45→14:30)
[2020-05-20] MEDS ORDERED: EPIDURAL/PCA KEYS XX PRN (00:45)
[2020-05-20] MEDS ORDERED: NALOXONE INJ 0.4MG/1ML VIAL (J2310 PER 1MG) IV PRN ×3 (00:45→14:30)
[2020-05-20] MEDS ORDERED: LACTATED RINGER'S 1000 ML IV PRN (00:45)
[2020-05-20] MEDS ORDERED: EPIDURAL COMMENT XX SCH (00:45)
[2020-05-20] MEDS ORDERED: FENTANYL/ROPIVACAINE/NACL BAG 100 ML EPIDURAL SCH (00:45)
[2020-05-20] MEDS ORDERED: REFRIGERATOR IV KEYS XX PRN (00:45)
[2020-05-20] MEDS: ONDANSETRON 4MG/2ML VIAL IV PRN ×3 (01:10→09:15)
[2020-05-20] MEDS: ePHEDrine SULFATE 25 MG/5 ML(5MG/ML) SYRINGE IV PRN ×3 (01:26→01:42)
[2020-05-20] MEDS ORDERED: ACETAMINOPHEN 500 MG TAB PO ONE ×2 (02:00→18:45)
[2020-05-20] MEDS: MAG Sulf (OBGYN) 20GM/500ML 20,000 MG in IV 1 EA IV SCH ×2 (02:00→13:54)
[2020-05-20] MEDS ORDERED: OXYTOCIN DRIP 30 UNITS in IV 1 EA IV SCH ×2 (03:45→12:17)
[2020-05-20] MEDS: miSOPROStol 25MCG 1/4 TABLET PO SCH (03:50)
--- NOTE | 2020-05-20 04:25 | IPNPDOC ---
Text Note Date of Service The patient was seen on 05/20/20. NOTE Intrapartum Note Patient feels well currently. Earlier she received epidural and had some low bp's associated with some late FHR decels, but FHR recovered well as bp's improved with ephedrine. RN reported loss of patellar reflexes and patient was somewhat somnolent along with decreased UOP (40ml/hr rather than >100ml/hr prior), so I requested 2g/hr MgSO4 be reduced to 1g/hr and Mg level was drawn approx 30min after, which resulted 5.5. Since turning down MgSO4, patient is feeling much better- more wakeful, less lightheaded and less nauseous. BP's now normal range, afebrile Cat I-II FHRT with bl 140, no accels presently, min to mod jose and no decels [place]: ctx q3-5min SCE: 6-7/80/-3, AROM performed to apply FSE for improved continuous FHR monitoring, clear fluid, well tolerated. Will continue MgSO4 at 1g/hr with neuro checks Eye to UOP and BP's Will continue to closely monitor Pitocin ordered, will titrate per protocol as FHRT allows Safe to proceed Emani Martinez MD VS,Gabrielle, I+O VSGabrielle I+O Laboratory Tests 05/19/20 10:45 Vital Signs Date Time Temp Pulse Resp B/P (MAP) Pulse Ox O2 Delivery O2 Flow Rate FiO2 05/20/20 03:37 75 16 119/76 (90) 05/20/20 03:06 98.1 05/19/20 19:01 Room Air I&O- Last 24 Hours up to 6 AM 05/20/20 06:00 Intake Total 2856.9 ml Output Total 2290 ml Balance 566.9 ml Emani Martinez MD May 20, 2020 04:25
[2020-05-20] MEDS: LR 1,000 ML IV SCH ×2 (05:26→13:54)
--- NOTE | 2020-05-20 06:42 | IPNPDOC ---
Text Note Date of Service The patient was seen on 05/20/20. NOTE Intrapartum Note Mary is doing well with epidural. Nurse has been doing position changes for patient frequently to assist descent. Pitocin at 4mu. BP recently 90's/50's Cat I FHRT with bl 120, mod jose, no accels, no decels Ctx irregular SCE: /-1, anterior Plan to continue to titrate up on pitocin to effect adequate ctx pattern will discontinue scheduled labetalol 2/2 current bp's. Continue MgSO4 at 1g/hr with neuro checks Closely monitor bp's and FHRT Plan to recheck in 2-4hr or earlier as indicated Safe to proceed Emani Martinez MD VS,Gabrielle, I+O VS, Gabrielle I+O Laboratory Tests 05/19/20 10:45 Vital Signs Date Time Temp Pulse Resp B/P (MAP) Pulse Ox O2 Delivery O2 Flow Rate FiO2 05/20/20 06:06 84 16 109/59 (76) 05/20/20 03:06 98.1 05/19/20 19:01 Room Air I&O- Last 24 Hours up to 6 AM 05/20/20 06:00 Intake Total 3222.6 ml Output Total 2390 ml Balance 832.6 ml Emani Martinez MD May 20, 2020 06:42
--- NOTE | 2020-05-20 08:59 | IPNPDOC ---
Text Note Date of Service The patient was seen on 05/20/20. NOTE Inpatient Mary denies feeling urge to push, or pressure sensation. Feels cramping in her back, but tolerable. SVE 10/100/+2 by MICHELE Bass, attempt to push and head did not have descent, no pressure felt with exam. Category 2 FHT, 120bpm moderate variability, variable decelerations with contractions, positive accelerations UC every 2-6 min, lasting 90-110 seconds, moderate on palpation, resting tone soft. Pitocin at 12mu/min. 200mL LR bolus started due to low urinary output. Dr Lewis updated Plan to labor down. VS,Fishbone, I+O VS, [place], I+O Laboratory Tests 05/19/20 10:45 Vital Signs Date Time Temp Pulse Resp B/P (MAP) Pulse Ox O2 Delivery O2 Flow Rate FiO2 05/20/20 08:37 80 16 133/69 (90) 05/20/20 07:07 98.3 05/19/20 19:01 Room Air I&O- Last 24 Hours up to 6 AM 05/20/20 05:59 Intake Total 3222.6 ml Output Total 2390 ml Balance 832.6 ml Astrid Guan CNM May 20, 2020 08:59
[2020-05-20] MEDS ORDERED: LACTATED RINGER'S 1000 ML IV ONE (09:00)
[2020-05-20] MEDS ORDERED: LABETALOL 200 MG TAB PO SCH ×2 (09:00→16:00)
[2020-05-20] MEDS ORDERED: ceFAZolin 2 GM/D5W 50 ML IV BAG (J0690 PER 500MG) As Ordered ONE (10:51)
[2020-05-20] MEDS ORDERED: BICITRA 30ML SOLN UDC As Ordered ONE (10:52)
[2020-05-20] MEDS ORDERED: AZITHROMYCIN INJ 500MG VIAL (J0456 PER 500MG) As Ordered ONE (10:53)
[2020-05-20 10:58] LABS: HEMATOCRIT 35.4 % (36.0-47.0); HEMOGLOBIN 11.9 g/dl (12.0-15.5); MEAN CORPUSCULAR HEMOGLOBIN 30.5 pg (27.0-33.0); MEAN CORPUSCULAR HGB CONC 33.6 g/dl (32.0-36.5); MEAN CORPUSCULAR VOLUME 90.8 fl (80.0-96.0); PLATELET COUNT, AUTOMATED 187 10^3/uL (150-450); WHITE BLOOD COUNT 13.2 10^3/uL (4.0-10.0)
[2020-05-20] MEDS ORDERED: AZITHROMYCIN INJ 500 MG, VIAL MATE ADAPTER 1 EACH in D5W 250 ML IV ONE (11:00)
[2020-05-20] MEDS ORDERED: BICITRA 30ML SOLN UDC PO ONE (11:00)
[2020-05-20] MEDS ORDERED: ceFAZolin SOD 2 GM in IV 1 EA IV ONE (11:00)
[2020-05-20 11:32] LABS: CORD GAS ABE A -11.3; CORD GAS HCO3 A 21.4 MEQ/L; CORD GAS O2 SAT A 28.8 %; CORD GAS O2 SAT V 27.2 %; CORD GAS PCO2 A 80.8 mmHg; CORD GAS PCO2 V 76.1 mmHg; CORD GAS PH A 7.041 UNITS; CORD GAS PH V 7.078 UNITS; CORD GAS PO2 A 20.9 mmHg; CORD GAS PO2 V 19.4 mmHg; CORD GAS SBC A 14.3 MEQ/L; CORD GAS SBC V 15.1 MEQ/L; CORD GAS TCO2 A 23.9 MEQ/L; CORD GAS TCO2 V 24.3 MEQ/L
[2020-05-20] MEDS ORDERED: KETOROLAC 60MG 2ML VIAL As Ordered ONE (12:03)
[2020-05-20] MEDS ORDERED: SUCCINYLCHOLINE 100 MG/5 ML SYRINGE (J0330) As Ordered ONE (12:03)
[2020-05-20] MEDS ORDERED: MORPHINE PRES-FREE INJ 10 MG/10 ML VIAL (J2274) As Ordered ONE (12:03)
[2020-05-20] MEDS ORDERED: ONDANSETRON 4MG/2ML VIAL As Ordered ONE (12:03)
[2020-05-20] MEDS ORDERED: ROCURONIUM BROMIDE 50 MG/5 ML VIAL As Ordered ONE (12:03)
[2020-05-20] MEDS ORDERED: dexameTHASONE 4 MG/ML 1ML VIAL (J1100 PER 1MG) As Ordered ONE (12:03)
[2020-05-20] MEDS ORDERED: OXYTOCIN 30 UNITS IN 0.9% NaCl 500ML IV BAG (J2590) As Ordered ONE (12:03)
[2020-05-20] MEDS ORDERED: MIDAZOLAM INJ 2MG/2ML VIAL (J2250 PER 1MG) As Ordered ONE (12:03)
[2020-05-20] MEDS ORDERED: SUGAMMADEX SODIUM 500 MG/5 ML VIAL (BRIDION) As Ordered ONE (12:04)
--- NOTE | 2020-05-20 12:04 | IPNPDOC ---
Text Note Date of Service The patient was seen on 05/20/20. NOTE Inpatient Passive descent for approximately 1hr, patient not feeling any pressure or urge to push. Due to category 2 tracing with prolonged deceleration, pushing started and mi nimal descent with pushing. FHR Tracing improved with oxygen, position changes, and shutting off Pitocin. Dr. Lewis called for evaluation of forceps or C/Section delivery. VS,Fishbone, I+O VS, Fishbone, I+O Laboratory Tests 05/20/20 10:51 Vital Signs Date Time Temp Pulse Resp B/P (MAP) Pulse Ox O2 Delivery O2 Flow Rate FiO2 05/20/20 09:52 78 16 135/66 (89) 05/20/20 07:07 98.3 05/19/20 19:01 Room Air I&O- Last 24 Hours up to 6 AM 05/20/20 05:59 Intake Total 3222.6 ml Output Total 2390 ml Balance 832.6 ml Astrid Guan CNM May 20, 2020 12:04
[2020-05-20] MEDS ORDERED: PHENYLephrine 500MCG 5ML (100MCG/ML) SYRINGE As Ordered ONE (12:08)
[2020-05-20] MEDS ORDERED: ONDANSETRON 4MG/2ML VIAL IV PRN ×2 (12:30→14:30)
[2020-05-20] MEDS ORDERED: MEASLES,MUMPS,RUBELLA VACCINE INJ (MMR-II) (90707) SC SCH (12:30)
[2020-05-20] MEDS ORDERED: CARBOPROST TROMETHAMINE 250 MCG/ML AMP IM ONE (12:30)
[2020-05-20] MEDS ORDERED: ACETAMINOPHEN 500 MG TAB PO PRN (12:30)
[2020-05-20] MEDS ORDERED: RHOGAM 300 MCG (1500 IU) INJ (J2790) IM SCH (12:30)
[2020-05-20] MEDS ORDERED: PERCOCET 5MG/325MG TAB PO PRN (12:30)
--- NOTE | 2020-05-20 12:40 | ROOPDOC ---
[facility] Report Of Operation Report of Operation DATE OF PROCEDURE: 05/20/2020 PREPROCEDURE DIAGNOSES: 40+1 weeks gestation, nonreassuring heart rate tracing, arrest of descent, preeclampsia with severe features, advanced maternal age POSTPROCEDURE DIAGNOSES: Same PROCEDURE:. Primary low transverse section SURGEON: Chico Lewis DO F[employer]OG [employer] SCIENTIFIC AID: Eliane Orellana MD (Essential role in retraction, extraction, and closure of all tissue layers) ANESTHESIA: Epidural; converted to GETA (see anesthesia documentation) ESTIMATED BLOOD LOSS: 800 mL. IV FLUIDS: See anesthesia record URINE OUTPUT: 50 mL (urine was dark red tinged prior to incision) COMPLICATIONS: None. PREOPERATIVE ANTIBIOTICS: Ancef 2g IV x 1, Azithromycin 500mg IV COMPLICATIONS: none DATA: Apgars 5 and 9. Cord gases: Arterial pH 7.041, base excess -11.3, venous pH 7.078 base excess of -10.0 Birthweight. 3380 g, 7 lbs 7 oz. SPECIMENS: none PRIMARY INDICATION FOR : Nonreassuring heart rate tracing DESCRIPTION OF PROCEDURE: The patient was counseled on the risks, benefits, indications and alternatives of the procedure. Informed consent was obtained. She was taken to the operating room with IV running and placed on the operating table in the dorsal supine position with a leftward tilt. A Traxi abdominal retractor was placed. Regional anesthesia was found to be adequate. Patient experienced shortness of breath, difficulty breathing while in the operating room, and the decision was made to convert to general anesthesia as the incision was being made. Sequential compression devices had been placed on the lower extremities. A Linda catheter was already in place. She had been prepared and draped in normal sterile fashion. A time out was performed per protocol. A Pfannenstiel skin incision was made with the 10 blade. The 10 blade was used to dissect down to the level of the rectus sheath fascia. The rectus sheath pressure was incised midline and this was extended bilaterally with manual stretch. The midline was identified. The peritoneum was identified and entered digitally. The peritoneal opening was extended with manual stretch. The Mobius retractor was placed. A low transverse uterine incision was made with the 10 blade. This was extended with manual stretch. The amniotic sac was punctured, and clear fluid was noted. The baby delivered through the hysterotomy without difficulty. The cord was doubly clamped and cut, and the baby was handed off to awaiting care. data shown above.. The placenta was removed manually. The intrauterine cavity was cleared of all clot and debris. The hysterotomy was closed with 0 Vicryl in running locked fashion. This was reinforced with a second imbricating layer us ing 0 Vicryl in running fashion. The vesicouterine peritoneum was reapproximated with 3-0 Vicryl running fashion Excellent hemostasis of the hysterotomy site was noted. The pelvis was irrigated and the fluid suctioned. The Mobius retractor was removed. The peritoneum was closed with 3-0 Vicryl running fashion. The rectus muscle bellies were reapproximated with interrupted stitches using 3-0 Vicryl. The rectus muscles bellies were hemostatic. The rectus sheath fascia was closed with 0 Vicryl running fashion. The subcutaneous layer was irrigated and the fluid suctioned. Small bleeding vessels were cauterized with Bovie. Excellent hemostasis was noted. The subcutaneous layer was reapproximated with 3-0 Vicryl running fashion. Skin was closed with 3-0 Monocryl in subcuticular fashion. An Optifoam bandage was placed over the closed incision. Sponge, needle and instrument counts were correct per protocol throughout the procedure. The patient tolerated the entire procedure very well. She was transferred to the PACU in stable condition. DO GERARD Rubio JONATHAN R. DO May 20, 2020 12:40
[2020-05-20] MEDS ORDERED: LABETALOL 100MG/20ML VIAL IV STA ×2 (14:20→15:40)
[2020-05-20] MEDS ORDERED: METOCLOPRAMIDE INJ 10MG/2ML VIAL (J2765 PER 1) IV PRN (14:30)
[2020-05-20] MEDS ORDERED: NALBUPHINE HCL 10 MG/ML AMP (J2300) IV PRN (14:30)
[2020-05-20 15:44] LABS: HEMATOCRIT 38.5 % (36.0-47.0); MEAN CORPUSCULAR HEMOGLOBIN 30.3 pg (27.0-33.0); MEAN CORPUSCULAR HGB CONC 33.8 g/dl (32.0-36.5); MEAN CORPUSCULAR VOLUME 89.7 fl (80.0-96.0); PLATELET COUNT, AUTOMATED 224 10^3/uL (150-450); RED BLOOD COUNT 4.29 10^6/uL (4.00-5.40); WHITE BLOOD COUNT 22.7 10^3/uL (4.0-10.0)
[2020-05-20 16:11] LABS: CREATININE FOR GFR 1.01 MG/DL (0.55-1.30); GLOMERULAR FILTRATION RATE > 60.0 (>60)
[2020-05-20] MEDS: PERCOCET 5MG/325MG TAB PO PRN ×2 (16:26→22:30)
[2020-05-20] MEDS: KETOROLAC 30 MG/ML 1ML VIAL IV SCH ×2 (17:57→23:29)
[2020-05-20] MEDS: DOCUSATE SODIUM 100MG CAPSULE PO SCH (21:30)
[2020-05-20] MEDS: LABETALOL 200 MG TAB PO SCH (21:30)
[2020-05-21] VITALS (21 sets, daily range): BP systolic 123–153; BP diastolic 70–90
[2020-05-21] MEDS: LR 1,000 ML IV SCH ×4 (01:24→20:17)
[2020-05-21] MEDS: KETOROLAC 30 MG/ML 1ML VIAL IV SCH (05:50)
--- NOTE | 2020-05-21 07:44 | IPNPDOC ---
Text Note Date of Service The patient was seen on 05/21/20. NOTE Inpatient Subjective: Mary is a 34 y/o , S/P Primary Section for failure of descent, postoperative day #1. Magnesium Sulfate infusing for preeclampsia, has not been out of bed, croft catheter in place. Urine output increasing with clear yellow urine. Reports tolerating fluids without difficulty, passing flatus. Denies headache, visual changes, epigastric pain, nausea. infant is going well. Objective: Vital Signs: Normotensive, afebrile General: Alert and oriented x3. Respiratory: Regular rate, no accessory muscle use. Abdomen: Soft, non-tender, no distention. Fundus firm, midline at U-1. Dressing clean, dry, intact. Extremities: +2 pitting edema bilaterally to knees, negative calf tenderness. DTRs +2 bilaterally, negative clonus. Minimal lochia. Assessment: Preeclampsia on Magnesium Sulfate Infusion, Postoperative Day #1 Plan: 1. Discontinue Magnesium Sulfate and croft catheter at 24hrs post delivery. 2. Encourage ambulation when Magnesium discontinued. 3. Encourage . 4. Nursing care per protocol. 5. Toradol/Motrin and Percocet as needed for pain. VS,Fishbone, I+O VS, Fishbone, I+O Laboratory Tests 05/20/20 10:51 05/20/20 15:16 Vital Signs Date Time Temp Pulse Resp B/P (MAP) Pulse Ox O2 Delivery O2 Flow Rate FiO2 05/21/20 06:27 90 142/82 (102) 05/21/20 04:27 97.9 05/20/20 22:30 16 Room Air 05/20/20 13:30 96 05/20/20 13:15 1 I&O- Last 24 Hours up to 6 AM 05/21/20 05:59 Intake Total 7312.4 ml Output Total 2835 ml Balance 4477.4 ml Astrid Guan CNM May 21, 2020 07:44
[2020-05-21 09:03] LABS: HEMOGLOBIN 11.3 g/dl (12.0-15.5); MEAN CORPUSCULAR HEMOGLOBIN 31.4 pg (27.0-33.0); MEAN CORPUSCULAR HGB CONC 34.2 g/dl (32.0-36.5); MEAN CORPUSCULAR VOLUME 91.7 fl (80.0-96.0); PLATELET COUNT, AUTOMATED 219 10^3/uL (150-450); WHITE BLOOD COUNT 16.9 10^3/uL (4.0-10.0)
[2020-05-21] MEDS: PRENATAL VITAMINS CHEWABLE TABLET PO SCH (09:42)
[2020-05-21] MEDS: DOCUSATE SODIUM 100MG CAPSULE PO SCH ×2 (09:43→20:09)
[2020-05-21] MEDS: LABETALOL 200 MG TAB PO SCH ×2 (09:43→20:12)
[2020-05-21] MEDS: ENOXAPARIN 40MG/0.4ML SYRINGE (J1650 PER 10MG) SC SCH (09:55)
[2020-05-21] MEDS: MAG Sulf (OBGYN) 20GM/500ML 20,000 MG in IV 1 EA IV SCH (10:08)
--- NOTE | 2020-05-21 11:46 | IPNPDOC ---
Progress Note Date of Service: May 21, 2020 Day#: 1 Progress Note SUBJECT: Status post PLTCS. C/b pre-e with severe features. Indications for PLTCS: NRFHR, arrest of descent. Lochia decreasing/minimal. Pain is well- controlled. Incision bandage is clean/unsaturated. Denies headache, visual changes, right upper quadrant pain, shortness of breath or chest pain. OBJECTIVE: VITAL SIGNS: Predominantly mild range BP elevation, normal HR afebrile. UOP improving; clear yellow urine Alert and oriented times three. Abdomen: Fundus firm at U-2. Soft, NTTP. Incision bandage not soaked through ASSESSMENT: Status post uncomplicated PLTCS. Clinically improving/stable, afebrile, hemodynamically stable with no evidence of infection. PLAN: Discontinue Magnesium Sulfate and Linda catheter Continue Labetalol 200mg PO BID; IV antihypertensive medication and dose adjustment as indicated. Routine /postoperative advancement Postoperative instructions/precautions reviewed. Jere Davis DO VS, I&O, 24H, [facility] Vital Signs/I&O Vital Signs Date Time Temp Pulse Resp B/P (MAP) Pulse Ox O2 Delivery O2 Flow Rate FiO2 05/21/20 10:27 98.6 104 143/82 (102) 05/21/20 07:27 16 05/20/20 22:30 Room Air 05/20/20 13:30 96 05/20/20 13:15 1 I&O- Last 24 Hours up to 6 AM0 05/21/20 05:59 Intake Total 7312.4 ml Output Total 2835 ml Balance 4477.4 ml Laboratory Data 24H LABS Laboratory Tests 2 05/20/20 15:16: Nucleated Red Blood Cells % (auto) 0.0, Glomerular Filtration Rate > 60.0, Magnesium Level 5.3*H 05/21/20 08:33: Nucleated Red Blood Cells % (auto) 0.0 CBC/BMP Laboratory Tests 05/20/20 15:16 05/21/20 08:33 VINCE DAVIS DO May 21, 2020 11:46
[2020-05-21] MEDS ORDERED: IBUPROFEN 800 MG TAB PO SCH (14:00)
[2020-05-21] MEDS: PERCOCET 5MG/325MG TAB PO PRN ×2 (15:52→20:09)
[2020-05-22] VITALS (7 sets, daily range): BP systolic 121–143; BP diastolic 68–81
[2020-05-22] MEDS: PERCOCET 5MG/325MG TAB PO PRN ×5 (00:15→19:40)
[2020-05-22] MEDS: LR 1,000 ML IV SCH ×2 (04:17→12:17)
[2020-05-22] MEDS: DOCUSATE SODIUM 100MG CAPSULE PO SCH ×2 (08:45→21:20)
[2020-05-22] MEDS: PRENATAL VITAMINS CHEWABLE TABLET PO SCH (08:45)
[2020-05-22] MEDS: ENOXAPARIN 40MG/0.4ML SYRINGE (J1650 PER 10MG) SC SCH (08:46)
[2020-05-22] MEDS: LABETALOL 200 MG TAB PO SCH ×2 (08:46→21:21)
[2020-05-22] MEDS ORDERED: LABE20TAB PO (08:51)
[2020-05-22] MEDS ORDERED: PERCOCET PO (08:51)
[2020-05-22] MEDS ORDERED: DOK1CAP7 PO (08:51)
--- NOTE | 2020-05-22 13:21 | IPNPDOC ---
Progress Note Date of Service: May 22, 2020 Day#: 2 Progress Note SUBJECT: Status post PLTCS for nonreassuring heart rate tracing. Was complicated by preeclampsia with severe features. She is status post magnesium sulfate IV therapy. She has been ambulating, voiding spontaneously without issue and tolerating regular diet. Lochia decreasing/minimal. Pain is well- controlled. Incision bandage is clean/unsaturated. Denies headache, visual changes, right upper quadrant pain, shortness of breath or chest pain. OBJECTIVE: VITAL SIGNS: Within normal limits/improved, afebrile. Alert and oriented times three. Abdomen: Fundus firm at U-2. Soft, NTTP. Incision bandage not soaked through ASSESSMENT: Postoperative day #2, Status post uncomplicated PLTCS. Vitals withi n normal limits, afebrile, hemodynamically stable with no evidence of infection. PLAN: Discharge to home tomorrow Continue labetalol 200 mg twice a day Routine /postoperative advancement Postoperative instructions/precautions reviewed. Routine PP visit at 2 and 6 weeks in clinic. VS, I&O, 24H, Fishbone Vital Signs/I&O Vital Signs Date Time Temp Pulse Resp B/P (MAP) Pulse Ox O2 Delivery O2 Flow Rate FiO2 05/22/20 09:36 98.4 102 18 136/79 (98) 96 Room Air 1.0 I&O- Last 24 Hours up to 6 AM 05/22/20 05:59 Intake Total 1486.6 ml Output Total 2320 ml Balance -833.4 ml VINCE DAVIS DO May 22, 2020 13:21
[2020-05-23] MEDS: PERCOCET 5MG/325MG TAB PO PRN ×3 (00:10→11:30)
[2020-05-23 02:00] VITALS: BP 118/60
[2020-05-23 06:00] VITALS: BP 130/74
--- NOTE | 2020-05-23 06:32 | DS.PDOC ---
Discharge Summary General Date of Admission May 19, 2020 at 09:38 Date of Discharge 05/23/20 Discharge Summary DATE OF ADMISSION: 05/19/2020 DATE OF DISCHARGE: 05/23/2020 ADMISSION DIAGNOSIS:. Term gestation, 38+ weeks, preeclampsia with severe features DISCHARGE DIAGNOSIS: Same DISCHARGE SUMMARY: The patient was admitted at 38+ weeks gestation with a diagnosis of, preeclampsia was severe features. And induction of labor was started. Her labor course was complicated by a nonreassuring heart rate tracing in the second stage of labor, which prompted an urgent section. The section delivery was uncomplicated. Her postoperative course was u ncomplicated as well. On postoperative day #3, she was meeting all discharge criteria. PHYSICAL EXAMINATION ON DATE OF DISCHARGE: Normotensive. Normal heart rate. Afebrile. HEART: Regular rate and rhythm. No murmurs, gallops, or rubs. LUNGS: Clear to auscultation bilaterally. ABDOMEN: Soft, nontender, nondistended. Incision bandage clean and dry. EXTREMITIES: Nonedematous, nontender. She was meeting all discharge criteria on postoperative day #. We reviewed routine fever, infectious, pain, and bleeding precautions. She is to followup in 2 weeks for incision check. Her postoperative medications are labetalol 200 mg twice a day , Percocet, Motrin, and Colace. Vital Signs/I&Os Vital Signs Date Time Temp Pulse Resp B/P (MAP) Pulse Ox O2 Delivery O2 Flow Rate FiO2 05/23/20 06:00 98.6 107 18 130/74 (92) 97 Room Air 05/22/20 09:36 1.0 Discharge Medications Scheduled Cholecalciferol (Vitamin D3) (Vitamin D3) 1,000 Unit Tablet, 1 TAB PO DAILY, (Reported) Docusate Sodium (Dok) 100 Mg Capsule, 100 MG PO BID Labetalol HCl (Labetalol HCl) 200 Mg Tablet, 200 MG PO BID Multivit-Min/Iron/Folic/Vit K1 (Centrum Chewables Adults Tab) 1 Chw Chw, 1 TAB PO DAILY, (Reported) Scheduled PRN Oxycodone/Acetaminophen (Oxycodone-Acetaminophen 5-325) 1 Each Tablet, 1 TAB PO Q4H PRN for MILD/MODERATE PAIN (PS 1-7) Miscellaneous Medications Metformin HCl (Metformin HCl) 500 Mg Tablet, 500 MG PO, (Reported) Allergies Coded Allergies: Penicillins (Verified Allergy, Unknown, 05/19/20) VINCE DAVIS DO May 23, 2020 06:32
[2020-05-23 09:08] VITALS: BP 130/74
[2020-05-23] MEDS: DOCUSATE SODIUM 100MG CAPSULE PO SCH (09:08)
[2020-05-23] MEDS: LABETALOL 200 MG TAB PO SCH (09:08)
[2020-05-23] MEDS: PRENATAL VITAMINS CHEWABLE TABLET PO SCH (09:08)
[2020-05-23] MEDS: ENOXAPARIN 40MG/0.4ML SYRINGE (J1650 PER 10MG) SC SCH (09:09)
[2020-05-23 10:00] VITALS: BP 136/75
== END 2020-05-23 12:35 | disposition home or self-care (01) | DRG 540 ==
LOC: M LDI 09:38 → M OBS 05-21 12:56
PROVIDERS: ADMIT Obstetrics & Gynecology; ATTEND Obstetrics & Gynecology
PROC: 3E033VJ Introduction of Other Hormone into Peripheral Vein, Percutaneous Approach (ICD-10-PCS; 2020-05-19)
PROC: 10907ZC Drainage of Amniotic Fluid, Therapeutic from Products of Conception, Via Natural or Artificial Opening (ICD-10-PCS; 2020-05-20)
PROC: 3E0DXGC Introduction of Other Therapeutic Substance into Mouth and Pharynx, External Approach (ICD-10-PCS; 2020-05-20)
PROC: 10D00Z1 Extraction of Products of Conception, Low, Open Approach (ICD-10-PCS; principal; 2020-05-20 11:25)
DX: O14.24 HELLP syndrome, complicating childbirth (principal); O48.0 Post-term pregnancy; Z37.0 Single live birth; Z3A.40 40 weeks gestation of pregnancy; Z98.84 Bariatric surgery status; O09.523 Supervision of elderly multigravida, third trimester; O76 Abnormality in fetal heart rate and rhythm complicating labor and delivery; Z88.0 Allergy status to penicillin

== ENCOUNTER → 2020-08-19 | Outpatient (REF) | payer BC ==
[~2020-08-19] MED LIST changes: +DOK1CAP7 PO; +LABE20TAB PO; +PERCOCET PO
== END ==
LOC: M SFHCWAGY 13:02
PROVIDERS: ATTEND Advanced Practice Midwife
DX: Z12.4 Encounter for screening for malignant neoplasm of cervix (principal)
CPT/HCPCS: 87624; G0123

== ENCOUNTER → 2020-08-26 | Outpatient (REF) | payer BC ==
[2020-08-26 16:53] LABS: BASO % 0.6 % (0.0-1.0); EOS # 0.1 10^3/uL (0.0-0.5); EOS % 0.9 % (0.0-3.0); HEMOGLOBIN 12.2 g/dl (12.0-15.5); LYMPH # 1.9 10^3/uL (1.5-5.0); LYMPH % 27.9 % (24.0-44.0); MEAN CORPUSCULAR HEMOGLOBIN 28.3 pg (27.0-33.0); MEAN CORPUSCULAR HGB CONC 32.1 g/dl (32.0-36.5); MEAN CORPUSCULAR VOLUME 88.2 fl (80.0-96.0); MONO # 0.7 10^3/uL (0.0-0.8); MONO % 10.3 % (2.0-8.0); NEUTROPHILS # 4.1 10^3/uL (1.5-8.5); PLATELET COUNT, AUTOMATED 359 10^3/uL (150-450); RED BLOOD COUNT 4.31 10^6/uL (4.00-5.40); WHITE BLOOD COUNT 6.9 10^3/uL (4.0-10.0)
[2020-08-26 17:35] LABS: ALBUMIN 3.9 GM/DL (3.2-5.2); ALT/SGPT 26 U/L (12-78); BILIRUBIN,TOTAL 0.2 MG/DL (0.2-1.0); BLOOD UREA NITROGEN 13 MG/DL (7-18); CARBON DIOXIDE LEVEL 25 MEQ/L (21-32); CHLORIDE LEVEL 108 MEQ/L (98-107); CHOLESTEROL LEVEL 165 MG/DL (<200); CHOLESTEROL RISK RATIO 2.115 (<5); CREATININE FOR GFR 0.57 MG/DL (0.55-1.30); GLOMERULAR FILTRATION RATE > 60.0 (>60); GLUCOSE, FASTING 73 MG/DL (70-100); HDL CHOLESTEROL 78 MG/DL (>40); LDL CHOLESTEROL 61 MG/DL (<100); NON-HDL-C 87 MG/DL; POTASSIUM SERUM 4.8 MEQ/L (3.5-5.1); SODIUM LEVEL 139 MEQ/L (136-145); TOTAL PROTEIN 7.7 GM/DL (6.4-8.2); TRIGLYCERIDES LEVEL 129 MG/DL (<150)
[2020-08-26 17:37] LABS: TOTAL 25(OH) VITAMIN D 26.7 NG/ML (30.0-100.0)
== END ==
LOC: M LAB REF 16:19
PROVIDERS: ATTEND Pediatrics
DX: I10 Essential (primary) hypertension (principal); E03.9 Hypothyroidism, unspecified; E55.9 Vitamin D deficiency, unspecified

== ENCOUNTER → 2021-06-02 | Outpatient (CLI) | payer BC ==
[~2021-06-02] MED LIST changes: +DOK1CAP4 PO; -DOK1CAP7 PO
[2021-06-02 11:26] LABS: HCG, SERUM QUANTITATIVE < 1.0 MIU/ML
[2021-06-02 11:29] LABS: ESTRADIOL 28.8 PG/ML; FOLLICLE STIMULATING HORMONE 8.1 mIU/mL; LUTEINIZING HORMONE 4.9 mIU/mL; PROGESTERONE 0.29 NG/ML
== END ==
LOC: M PLALAB 07:20
PROVIDERS: ATTEND Obstetrics & Gynecology Reproductive Endocrinology
DX: E28.9 Ovarian dysfunction, unspecified (principal)

== ENCOUNTER → 2021-06-02 | Outpatient (CLI) | payer BC | LOC: M WHC 06:58 | PROVIDERS: ATTEND Obstetrics & Gynecology Reproductive Endocrinology | DX: E28.9 Ovarian dysfunction, unspecified (principal); N83.00 Follicular cyst of ovary, unspecified side ==

== ENCOUNTER → 2021-06-09 | Outpatient (CLI) | payer BC ==
[2021-06-09 11:01] LABS: LUTEINIZING HORMONE 0.8 mIU/mL; PROGESTERONE 0.33 NG/ML
== END ==
LOC: M PLALAB 07:30
PROVIDERS: ATTEND Obstetrics & Gynecology Reproductive Endocrinology
DX: Z31.83 Encounter for assisted reproductive fertility procedure cycle (principal)

== ENCOUNTER → 2021-06-09 | Outpatient (CLI) | payer BC | LOC: M RAD 06:59 | PROVIDERS: ATTEND Obstetrics & Gynecology Reproductive Endocrinology | DX: Z31.83 Encounter for assisted reproductive fertility procedure cycle (principal) ==

== ENCOUNTER → 2021-06-12 | Outpatient (CLI) | payer BC | LOC: M WHC 07:01 | PROVIDERS: ATTEND Obstetrics & Gynecology Reproductive Endocrinology | DX: Z31.83 Encounter for assisted reproductive fertility procedure cycle (principal) ==

== ENCOUNTER → 2021-06-12 | Outpatient (CLI) | payer BC ==
[2021-06-12 14:46] LABS: ESTRADIOL 1357.6 PG/ML; LUTEINIZING HORMONE 2.9 mIU/mL; PROGESTERONE 0.76 NG/ML
== END ==
LOC: M PLALAB 07:34
PROVIDERS: ATTEND Obstetrics & Gynecology Reproductive Endocrinology
DX: Z31.83 Encounter for assisted reproductive fertility procedure cycle (principal)

== ENCOUNTER → 2021-06-23 | Outpatient (CLI) | payer BC ==
[2021-06-23 13:10] LABS: PROGESTERONE 27.51 NG/ML
== END ==
LOC: M PLALAB 07:30
PROVIDERS: ATTEND Obstetrics & Gynecology Reproductive Endocrinology
DX: Z31.49 Encounter for other procreative investigation and testing (principal)

== ENCOUNTER → 2021-06-28 | Outpatient (CLI) | payer BC ==
[2021-06-28 08:27] LABS: PROGESTERONE 26.38 NG/ML
== END ==
LOC: M LAB 06:54
PROVIDERS: ATTEND Obstetrics & Gynecology Reproductive Endocrinology
DX: Z32.00 Encounter for pregnancy test, result unknown (principal)

== ENCOUNTER → 2021-06-30 | Outpatient (CLI) | payer BC ==
[2021-06-30 08:08] LABS: THYROID STIMULATING HORMONE 1.51 uIU/ML (0.358-3.740)
[2021-06-30 12:33] LABS: PROGESTERONE 41.46 NG/ML
[2021-06-30 12:34] LABS: ESTRADIOL 605.2 PG/ML
== END ==
LOC: M LAB 07:02
PROVIDERS: ATTEND Obstetrics & Gynecology Reproductive Endocrinology
DX: Z32.01 Encounter for pregnancy test, result positive (principal)

== ENCOUNTER → 2021-07-03 | Outpatient (CLI) | payer BC ==
[2021-07-03 11:02] LABS: PROGESTERONE 34.03 NG/ML
== END ==
LOC: M LAB 06:51
PROVIDERS: ATTEND Obstetrics & Gynecology Reproductive Endocrinology
DX: Z32.01 Encounter for pregnancy test, result positive (principal)

== ENCOUNTER 2021-07-13 07:27 | Emergency (ER) | payer BC ==
[~2021-07-13] VITALS: Ht 160 cm; Wt 89.5 kg
[2021-07-13] MEDS ORDERED: ESTR2TAB3 (07:38)
[2021-07-13] MEDS ORDERED: METF750T36 (07:38)
[2021-07-13] MEDS ORDERED: PRED5TA (07:38)
[2021-07-13 08:05] LABS: BASO % 0.3 % (0.0-1.0); EOS # 0.1 10^3/uL (0.0-0.5); EOS % 0.8 % (0.0-3.0); HEMATOCRIT 38.3 % (36.0-47.0); HEMOGLOBIN 12.1 g/dl (12.0-15.5); LYMPH # 2.1 10^3/uL (1.5-5.0); LYMPH % 28.5 % (24.0-44.0); MEAN CORPUSCULAR HEMOGLOBIN 25.9 pg (27.0-33.0); MEAN CORPUSCULAR HGB CONC 31.6 g/dl (32.0-36.5); MONO # 0.4 10^3/uL (0.0-0.8); NEUTROPHILS # 4.7 10^3/uL (1.5-8.5); PLATELET COUNT, AUTOMATED 338 10^3/uL (150-450); RED BLOOD COUNT 4.67 10^6/uL (4.00-5.40); WHITE BLOOD COUNT 7.4 10^3/uL (4.0-10.0)
[2021-07-13 11:04] VITALS: BP 135/62
== END 2021-07-13 11:05 | disposition home or self-care (01) ==
LOC: M ED 07:27
DX: O26.851 Spotting complicating pregnancy, first trimester (principal); N93.9 Abnormal uterine and vaginal bleeding, unspecified; E28.2 Polycystic ovarian syndrome; Z88.0 Allergy status to penicillin; Z98.84 Bariatric surgery status; Z3A.01 Less than 8 weeks gestation of pregnancy

== ENCOUNTER → 2021-07-15 | Outpatient (CLI) | payer BC ==
[~2021-07-15] MED LIST changes: +ESTR2TAB3; +METF750T36; +PRED5TA
== END ==
LOC: M LAB 08:19
PROVIDERS: ATTEND Obstetrics & Gynecology Reproductive Endocrinology
DX: O20.8 Other hemorrhage in early pregnancy (principal)

== ENCOUNTER → 2021-07-20 | Outpatient (CLI) | payer BC ==
[2021-07-20 09:22] LABS: PROGESTERONE 38.67 NG/ML
[2021-07-20 09:24] LABS: ESTRADIOL 418.8 PG/ML
== END ==
LOC: M LAB 08:12
PROVIDERS: ATTEND Obstetrics & Gynecology Reproductive Endocrinology
DX: O09.00 Supervision of pregnancy with history of infertility, unspecified trimester (principal)

== ENCOUNTER → 2021-07-20 | Outpatient (CLI) | payer BC | LOC: M WHC 06:50 | PROVIDERS: ATTEND Obstetrics & Gynecology Reproductive Endocrinology | DX: O09.00 Supervision of pregnancy with history of infertility, unspecified trimester (principal); O30.041 Twin pregnancy, dichorionic/diamniotic, first trimester; Z3A.01 Less than 8 weeks gestation of pregnancy ==

== ENCOUNTER → 2021-07-27 | Outpatient (CLI) | payer BC ==
[2021-07-27 12:23] LABS: ESTRADIOL 1069.3 PG/ML; PROGESTERONE 33.35 NG/ML
== END ==
LOC: M PLALAB 07:03
PROVIDERS: ATTEND Obstetrics & Gynecology Reproductive Endocrinology
DX: Z32.01 Encounter for pregnancy test, result positive (principal)

== ENCOUNTER → 2021-07-27 | Outpatient (CLI) | payer BC | LOC: M WHC 07:14 | PROVIDERS: ATTEND Obstetrics & Gynecology Reproductive Endocrinology | DX: Z32.01 Encounter for pregnancy test, result positive (principal) ==

== ENCOUNTER → 2021-08-30 | Outpatient (CLI) | payer BC ==
[2021-08-30 10:44] LABS: HEMATOCRIT 33.4 % (36.0-47.0); HEMOGLOBIN 10.6 g/dl (12.0-15.5); MEAN CORPUSCULAR HEMOGLOBIN 25.7 pg (27.0-33.0); MEAN CORPUSCULAR HGB CONC 31.7 g/dl (32.0-36.5); MEAN CORPUSCULAR VOLUME 81.1 fl (80.0-96.0); PLATELET COUNT, AUTOMATED 322 10^3/uL (150-450); RED BLOOD COUNT 4.12 10^6/uL (4.00-5.40); WHITE BLOOD COUNT 6.8 10^3/uL (4.0-10.0)
[2021-08-30 12:12] LABS: HEPATITIS C VIRUS ABY INDEX 0.1 INDEX (<0.8); HIV 1&2 SCREEN CENTAUR NEGATIVE (NEGATIVE)
[2021-08-30 12:24] LABS: GC DNA AMPLIFICATION NEGATIVE (NEGATIVE)
== END ==
LOC: M PLALAB 09:08
PROVIDERS: ATTEND Specialist
DX: Z34.81 Encounter for supervision of other normal pregnancy, first trimester (principal)

== ENCOUNTER → 2021-10-13 | Outpatient (CLI) | payer BC | LOC: M WHC 06:52 | PROVIDERS: ATTEND Obstetrics & Gynecology | DX: Z36.89 Encounter for other specified antenatal screening (principal); Z3A.19 19 weeks gestation of pregnancy ==

== ENCOUNTER → 2021-11-15 | Outpatient (CLI) | payer BC | LOC: M WHC 13:52 | PROVIDERS: ATTEND Obstetrics & Gynecology | DX: O30.042 Twin pregnancy, dichorionic/diamniotic, second trimester (principal); O99.842 Bariatric surgery status complicating pregnancy, second trimester; Z3A.24 24 weeks gestation of pregnancy ==

== ENCOUNTER → 2021-12-08 | Outpatient (CLI) | payer BC | LOC: M WHC 06:55 | PROVIDERS: ATTEND Obstetrics & Gynecology | DX: Z34.82 Encounter for supervision of other normal pregnancy, second trimester (principal) ==

== ENCOUNTER → 2021-12-13 | Outpatient (CLI) | payer BC ==
[2021-12-13 17:56] LABS: HEMATOCRIT 26.3 % (36.0-47.0); HEMOGLOBIN 7.6 g/dl (12.0-15.5); MEAN CORPUSCULAR HEMOGLOBIN 21.8 pg (27.0-33.0); MEAN CORPUSCULAR HGB CONC 28.9 g/dl (32.0-36.5); MEAN CORPUSCULAR VOLUME 75.6 fl (80.0-96.0); PLATELET COUNT, AUTOMATED 257 10^3/uL (150-450); RED BLOOD COUNT 3.48 10^6/uL (4.00-5.40); WHITE BLOOD COUNT 7.3 10^3/uL (4.0-10.0)
[2021-12-13 19:14] LABS: CREATININE,RANDOM URINE 70.8 MG/DL; TOTAL PROTEIN,RANDOM URINE 21.5 MG/DL (0.0-12.0)
[2021-12-13 19:23] LABS: ALBUMIN 2.6 GM/DL (3.2-5.2); ALT/SGPT 17 U/L (12-78); BILIRUBIN,TOTAL 0.2 MG/DL (0.2-1.0); BLOOD UREA NITROGEN 6 MG/DL (7-18); CALCIUM LEVEL 8.3 MG/DL (8.5-10.1); CARBON DIOXIDE LEVEL 23 MEQ/L (21-32); CHLORIDE LEVEL 107 MEQ/L (98-107); CREATININE FOR GFR 0.46 MG/DL (0.55-1.30); GLOMERULAR FILTRATION RATE > 60.0 (>60); GLUCOSE, FASTING 63 MG/DL (70-100); LDH LACTATE DEHYDROGENASE 159 U/L (84-246); POTASSIUM SERUM 4.2 MEQ/L (3.5-5.1); SODIUM LEVEL 137 MEQ/L (136-145); TOTAL PROTEIN 6.4 GM/DL (6.4-8.2); URIC ACID 3.3 MG/DL (2.6-6.0)
== END ==
LOC: M PLALAB 15:32
PROVIDERS: ATTEND Obstetrics & Gynecology
DX: O99.713 Diseases of the skin and subcutaneous tissue complicating pregnancy, third trimester (principal)

== ENCOUNTER → 2021-12-25 | Outpatient (CLI) | payer BC | LOC: M WHC 10:35 | PROVIDERS: ATTEND Advanced Practice Midwife | DX: O30.043 Twin pregnancy, dichorionic/diamniotic, third trimester (principal) ==

== ENCOUNTER → 2021-12-25 | Outpatient (CLI) | payer BC ==
[2021-12-25 15:42] LABS: HEMATOCRIT 27.8 % (36.0-47.0); HEMOGLOBIN 7.8 g/dl (12.0-15.5); MEAN CORPUSCULAR HEMOGLOBIN 22.1 pg (27.0-33.0); MEAN CORPUSCULAR HGB CONC 28.1 g/dl (32.0-36.5); MEAN CORPUSCULAR VOLUME 78.8 fl (80.0-96.0); PLATELET COUNT, AUTOMATED 226 10^3/uL (150-450); RED BLOOD COUNT 3.53 10^6/uL (4.00-5.40); WHITE BLOOD COUNT 6.7 10^3/uL (4.0-10.0)
[2021-12-25 16:02] LABS: TOTAL PROTEIN,RANDOM URINE 29.1 MG/DL (0.0-12.0)
[2021-12-25 16:31] LABS: ALT/SGPT 10 U/L (12-78); BILIRUBIN,TOTAL 0.3 MG/DL (0.2-1.0); CREATININE FOR GFR 0.48 MG/DL (0.55-1.30); GLOMERULAR FILTRATION RATE > 60.0 (>60); LDH LACTATE DEHYDROGENASE 146 U/L (84-246); URIC ACID 4.1 MG/DL (2.6-6.0)
== END ==
LOC: M PLALAB 12:04
PROVIDERS: ATTEND Advanced Practice Midwife
DX: O16.4 Unspecified maternal hypertension, complicating childbirth (principal)

== ENCOUNTER 2022-01-05 07:19 | Outpatient (CLI) | payer BC ==
[~2022-01-05] VITALS: Ht 160 cm; Wt 93.6 kg
[2022-01-05 07:30] VITALS: BP 157/86
[2022-01-05] MEDS ORDERED: IRON SUCROSE 500 MG in NS 250 ML OVER 4 HRS IV ONE (07:30)
[2022-01-05 08:45] VITALS: BP 137/89
[2022-01-05 09:45] VITALS: BP 134/90
[2022-01-05 10:45] VITALS: BP 142/94
[2022-01-05 12:30] VITALS: BP 160/82
== END 2022-01-05 12:30 | disposition home or self-care (01) ==
LOC: M INFU 07:19
PROVIDERS: ATTEND Specialist
DX: D64.9 Anemia, unspecified (principal); Z88.0 Allergy status to penicillin
CPT/HCPCS: 96365; 96366; J1756

== ENCOUNTER → 2022-01-12 | Outpatient (CLI) | payer BC ==
[2022-01-12 07:46] LABS: HEMATOCRIT 31.8 % (36.0-47.0); HEMOGLOBIN 9.2 g/dl (12.0-15.5); MEAN CORPUSCULAR HEMOGLOBIN 24.7 pg (27.0-33.0); MEAN CORPUSCULAR HGB CONC 28.9 g/dl (32.0-36.5); MEAN CORPUSCULAR VOLUME 85.3 fl (80.0-96.0); PLATELET COUNT, AUTOMATED 216 10^3/uL (150-450); RED BLOOD COUNT 3.73 10^6/uL (4.00-5.40); WHITE BLOOD COUNT 6.6 10^3/uL (4.0-10.0)
== END ==
LOC: M LAB 07:00
PROVIDERS: ATTEND Obstetrics & Gynecology
DX: O99.013 Anemia complicating pregnancy, third trimester (principal)

== ENCOUNTER → 2022-01-15 | Outpatient (CLI) | payer BC ==
[2022-01-15 16:07] LABS: HEMATOCRIT 35.7 % (36.0-47.0); HEMOGLOBIN 10.3 g/dl (12.0-15.5); MEAN CORPUSCULAR HEMOGLOBIN 24.8 pg (27.0-33.0); MEAN CORPUSCULAR HGB CONC 28.9 g/dl (32.0-36.5); PLATELET COUNT, AUTOMATED 226 10^3/uL (150-450); RED BLOOD COUNT 4.15 10^6/uL (4.00-5.40); WHITE BLOOD COUNT 7.3 10^3/uL (4.0-10.0)
[2022-01-15 16:51] LABS: TOTAL PROTEIN,RANDOM URINE 27.8 MG/DL (0.0-12.0)
[2022-01-15 17:04] LABS: ALT/SGPT 8 U/L (12-78); BILIRUBIN,TOTAL 0.3 MG/DL (0.2-1.0); CREATININE FOR GFR 0.44 MG/DL (0.55-1.30); GLOMERULAR FILTRATION RATE > 60.0 (>60); LDH LACTATE DEHYDROGENASE 154 U/L (84-246)
== END ==
LOC: M PLALAB 14:29
PROVIDERS: ATTEND Obstetrics & Gynecology
DX: O30.043 Twin pregnancy, dichorionic/diamniotic, third trimester (principal)

== ENCOUNTER → 2022-01-16 | Outpatient (CLI) | payer BC ==
[~2022-01-16] MED LIST changes: +ACET-683 PO; +ASPI81CH33 PO; +FERR325T3 PO; +MAGN250T11 PO
== END ==
LOC: M WHC 13:04
PROVIDERS: ATTEND Obstetrics & Gynecology
DX: O30.043 Twin pregnancy, dichorionic/diamniotic, third trimester (principal); Z3A.32 32 weeks gestation of pregnancy

== ENCOUNTER 2022-01-18 10:09 | Outpatient (CLI) | payer BC ==
[~2022-01-18] VITALS: Ht 160 cm; Wt 89.8 kg
[~2022-01-18 10:09] MED LIST changes: -ACET-683 PO; -ASPI81CH33 PO; -FERR325T3 PO; -MAGN250T11 PO
[2022-01-18 10:33] VITALS: BP 154/95
[2022-01-18] MEDS ORDERED: ACET-683 PO (10:44)
[2022-01-18] MEDS ORDERED: ASPI81CH33 PO (10:44)
[2022-01-18] MEDS ORDERED: FERR325T3 PO (10:44)
[2022-01-18] MEDS ORDERED: MAGN250T11 PO (10:44)
[2022-01-18] MEDS ORDERED: HOME MED LIST COMPLETE! XX SCH (10:45)
[2022-01-18 10:46] VITALS: BP 153/95
[2022-01-18] MEDS ORDERED: BETAMETHASONE SOLUSPAN 6MG/ML 5ML VIAL (J0702 PER 3MG) IM ONE (11:00)
[2022-01-18 11:15] VITALS: BP 169/96
[2022-01-18 11:24] VITALS: BP 156/91
== END 2022-01-18 11:27 | disposition home or self-care (01) ==
LOC: M LDO 10:09
PROVIDERS: ATTEND Specialist
DX: O16.3 Unspecified maternal hypertension, third trimester (principal); O30.043 Twin pregnancy, dichorionic/diamniotic, third trimester; O26.893 Other specified pregnancy related conditions, third trimester; R51.0 Headache with orthostatic component, not elsewhere classified; Z3A.33 33 weeks gestation of pregnancy
CPT/HCPCS: 59025; 96372; G0378; G0463; J0702

== ENCOUNTER 2022-01-19 11:07 | Outpatient (CLI) | payer BC ==
[~2022-01-19] VITALS: Ht 160 cm; Wt 89.1 kg
[~2022-01-19 11:07] MED LIST changes: +ACET-683 PO; +ASPI81CH33 PO; +FERR325T3 PO; +MAGN250T11 PO
[2022-01-19 11:27] VITALS: BP 133/78
[2022-01-19] MEDS ORDERED: BETAMETHASONE SOLUSPAN 6MG/ML 5ML VIAL (J0702 PER 3MG) IM STA (11:34)
[2022-01-19] MEDS ORDERED: HOME MED LIST COMPLETE! XX SCH (11:35)
[2022-01-19 12:15] VITALS: BP 130/65
== END 2022-01-19 12:40 | disposition home or self-care (01) ==
LOC: M LDO 11:07
PROVIDERS: ATTEND Obstetrics & Gynecology
DX: O14.93 Unspecified pre-eclampsia, third trimester (principal); O30.043 Twin pregnancy, dichorionic/diamniotic, third trimester; Z3A.33 33 weeks gestation of pregnancy
CPT/HCPCS: 59025; 76815; 76819; 76820; 96372; G0378; G0463; J0702

== ENCOUNTER 2022-01-24 21:43 | Inpatient (IN) | payer BC ==
[2022-01-24] VITALS (8 sets, daily range): BP systolic 111–170; BP diastolic 59–101
[~2022-01-24] VITALS: Ht 160 cm; Wt 87.6 kg
[~2022-01-24 21:43] MED LIST changes: -METF750T36; +METF750T36 PO
[2022-01-24] MEDS ORDERED: NIFEdipine 10 MG CAP PO ONE (22:45)
[2022-01-24 23:28] LABS: TOTAL PROTEIN,RANDOM URINE 31.1 MG/DL (0.0-12.0)
[2022-01-24 23:38] LABS: HEMATOCRIT 36.6 % (36.0-47.0); HEMOGLOBIN 11.4 g/dl (12.0-15.5); MEAN CORPUSCULAR HGB CONC 31.1 g/dl (32.0-36.5); MEAN CORPUSCULAR VOLUME 83.6 fl (80.0-96.0); PLATELET COUNT, AUTOMATED 215 10^3/uL (150-450); RED BLOOD COUNT 4.38 10^6/uL (4.00-5.40); WHITE BLOOD COUNT 8.3 10^3/uL (4.0-10.0)
[2022-01-24] MEDS ORDERED: ACET-897 PO (23:56)
[2022-01-24] MEDS ORDERED: PRENTAB9 PO (23:56)
[2022-01-25] VITALS (30 sets, daily range): BP systolic 107–169; BP diastolic 56–97
[2022-01-25] MEDS ORDERED: HOME MED LIST COMPLETE! XX SCH
[2022-01-25 00:10] LABS: ALT/SGPT 10 U/L (12-78); BILIRUBIN,TOTAL 0.2 MG/DL (0.2-1.0); CREATININE FOR GFR 0.52 MG/DL (0.55-1.30); GLOMERULAR FILTRATION RATE > 60.0 (>60); LDH LACTATE DEHYDROGENASE 158 U/L (84-246); URIC ACID 5.6 MG/DL (2.6-6.0)
[2022-01-25] MEDS ORDERED: ACETAMINOPHEN 500 MG TAB PO ONE (06:00)
[2022-01-25] MEDS ORDERED: TRANEXAMIC ACID INJection 1,000 MG in NS 100 ML IV PRN ×2 (07:40→08:45)
[2022-01-25] MEDS ORDERED: METHYLERGONOVINE MALEATE 0.2 MG/ML VIAL (J2210) IM PRN (07:40)
[2022-01-25] MEDS ORDERED: OXYTOCIN INJ 10 UNITS/ML VIAL (J2590) IM PRN (07:40)
[2022-01-25] MEDS ORDERED: CARBOPROST TROMETHAMINE 250 MCG/ML AMP IM PRN ×2 (07:40→08:45)
[2022-01-25] MEDS ORDERED: OXYTOCIN DRIP 30 UNITS in IV 1 EA IV PRN ×5 (07:40→08:45)
[2022-01-25] MEDS ORDERED: LR 1,000 ML IV SCH ×2 (08:45→11:10)
[2022-01-25] MEDS ORDERED: BICITRA 30ML SOLN UDC PO ONE (08:45)
[2022-01-25] MEDS ORDERED: ceFAZolin SOD 2 GM in IV 1 EA IV ONE (08:45)
[2022-01-25] MEDS ORDERED: ONDANSETRON 4MG 2ML VIAL As Ordered ONE (08:51)
[2022-01-25] MEDS ORDERED: ACETAMINOPHEN 1000MG 100ML IV BTL (OFIRMEV) (J0131 PER 10MG) As Ordered ONE (08:51)
[2022-01-25] MEDS ORDERED: OXYTOCIN 30 UNITS IN 0.9% NaCl 500ML IV BAG (J2590) As Ordered ONE ×2 (08:51→10:34)
[2022-01-25] MEDS ORDERED: MORPHINE PRES-FREE INJ 10 MG/10 ML VIAL As Ordered ONE (08:51)
[2022-01-25] MEDS ORDERED: KETOROLAC 60MG 2ML VIAL As Ordered ONE (08:51)
[2022-01-25] MEDS ORDERED: PHENYLephrine 500MCG 5ML (100MCG/ML) SYRINGE As Ordered ONE ×2 (09:28→09:43)
[2022-01-25] MEDS ORDERED: ONDANSETRON 4MG TAB PO PRN (09:30)
[2022-01-25] MEDS ORDERED: DOCUSATE SODIUM 100MG CAPSULE PO PRN (09:30)
[2022-01-25] MEDS ORDERED: OXYTOCIN DRIP 30 UNITS in IV 1 EA IV SCH (09:30)
[2022-01-25] MEDS ORDERED: RHOGAM 300 MCG (1500 IU) INJ (J2790) IM SCH (09:30)
[2022-01-25] MEDS ORDERED: MAG Sulf (L&D) 4 GM/100 ML 4 GM in IV 1 EA IV ONE (09:30)
[2022-01-25] MEDS ORDERED: PERCOCET 5MG/325MG TAB PO PRN (09:30)
[2022-01-25] MEDS: LR 1,000 ML IV SCH ×2 (09:30→17:30)
[2022-01-25] MEDS ORDERED: CALCIUM GLUCONATE 1,000 MG in D5W MINI-BAG PLUS 100 ML IV PRN (09:30)
[2022-01-25] MEDS ORDERED: ePHEDrine SULFATE 25 MG/5 ML(5MG/ML) SYRINGE As Ordered ONE (09:37)
[2022-01-25] MEDS ORDERED: DESFLURANE 240 ML INHALANT As Ordered ONE (10:29)
[2022-01-25] MEDS ORDERED: SEVOFLURANE INHAL SOLN 250 ML BTL As Ordered ONE (10:31)
[2022-01-25] MEDS ORDERED: METOCLOPRAMIDE INJ 10MG/2ML VIAL (J2765 PER 1) IV PRN ×2 (11:10)
[2022-01-25] MEDS ORDERED: MEPERIDINE INJ 25 MG/ML VIAL (J2175) IV PRN (11:10)
[2022-01-25] MEDS ORDERED: diphenhydrAMINE 50MG/ML VIAL (J1200) IV PRN (11:10)
[2022-01-25] MEDS ORDERED: oxyCODONE 5MG TAB PO PRN (11:10)
[2022-01-25] MEDS ORDERED: **NOTE PATIENT COMMENT** MISC XX SCH (11:10)
[2022-01-25] MEDS ORDERED: ONDANSETRON 4MG 2ML VIAL IV PRN (11:10)
[2022-01-25] MEDS ORDERED: NALOXONE INJ 0.4MG/1ML VIAL (J2310 PER 1MG) IV PRN ×2 (11:10)
[2022-01-25] MEDS ORDERED: fentaNYL 100 MCG/2 ML INJECTION IV PRN (11:10)
[2022-01-25] MEDS: MAG Sulf (OBGYN) 20GM/500ML 20,000 MG in IV 1 EA IV SCH ×2 (12:11→20:48)
[2022-01-25] MEDS: SLF 3 ML SYR IV SCH ×2 (12:22→20:11)
[2022-01-25] MEDS: KETOROLAC 30 MG/ML 1ML VIAL IV SCH ×2 (14:46→21:02)
[2022-01-26] VITALS (15 sets, daily range): BP systolic 109–140; BP diastolic 66–94
[2022-01-26] MEDS: LR 1,000 ML IV SCH ×2 (01:31→08:56)
[2022-01-26] MEDS: KETOROLAC 30 MG/ML 1ML VIAL IV SCH (02:28)
[2022-01-26] MEDS ORDERED: PERCOCET PO ×2 (03:29→03:31)
[2022-01-26] MEDS ORDERED: IBUP80TA PO (03:29)
[2022-01-26] MEDS ORDERED: COLA100C5 PO (03:29)
[2022-01-26] MEDS: SLF 3 ML SYR IV SCH ×2 (03:33→08:55)
[2022-01-26] MEDS: MAG Sulf (OBGYN) 20GM/500ML 20,000 MG in IV 1 EA IV SCH (05:58)
[2022-01-26 08:04] LABS: HEMATOCRIT 25.2 % (36.0-47.0); MEAN CORPUSCULAR HEMOGLOBIN 26.7 pg (27.0-33.0); MEAN CORPUSCULAR HGB CONC 31.3 g/dl (32.0-36.5); MEAN CORPUSCULAR VOLUME 85.1 fl (80.0-96.0); PLATELET COUNT, AUTOMATED 204 10^3/uL (150-450); RED BLOOD COUNT 2.96 10^6/uL (4.00-5.40); WHITE BLOOD COUNT 9.9 10^3/uL (4.0-10.0)
[2022-01-26] MEDS: PERCOCET 5MG/325MG TAB PO PRN ×2 (08:11→23:38)
[2022-01-26] MEDS: PRENATAL VITAMINS CHEWABLE TABLET PO SCH (08:11)
[2022-01-26 08:12] LABS: HEMOGLOBIN 7.9 g/dl (12.0-15.5)
[2022-01-26] MEDS: IBUPROFEN 800 MG TAB PO SCH ×2 (11:53→18:05)
[2022-01-26] MEDS: ACETAMINOPHEN 500 MG TAB PO PRN (16:37)
[2022-01-26] MEDS: SIMETHICONE 80MG CHEW TAB PO PRN (20:40)
[2022-01-27 02:00] VITALS: BP 112/70
[2022-01-27] MEDS: IBUPROFEN 800 MG TAB PO SCH ×2 (02:36→11:23)
[2022-01-27] MEDS: SIMETHICONE 80MG CHEW TAB PO PRN ×2 (05:19→11:29)
[2022-01-27] MEDS: ACETAMINOPHEN 500 MG TAB PO PRN ×2 (05:20→09:59)
[2022-01-27 06:00] VITALS: BP 128/69
[2022-01-27] MEDS ORDERED: MEASLES,MUMPS,RUBELLA VACCINE INJ (MMR-II) (90707) SC.IMMUN ONE (09:00)
[2022-01-27] MEDS: PRENATAL VITAMINS CHEWABLE TABLET PO SCH (09:59)
[2022-01-27 10:00] VITALS: BP 139/74
== END 2022-01-27 12:05 | disposition home or self-care (01) | DRG 540 ==
LOC: M LDO 21:43 → M LDI 01-25 05:18 → M OBS 01-26 04:01
PROVIDERS: ADMIT Advanced Practice Midwife; ATTEND Advanced Practice Midwife
PROC: 10D00Z1 Extraction of Products of Conception, Low, Open Approach (ICD-10-PCS; principal; 2022-01-25 09:00)
DX: O14.14 Severe pre-eclampsia complicating childbirth (principal); Z37.2 Twins, both liveborn; Z3A.34 34 weeks gestation of pregnancy; O34.211 Maternal care for low transverse scar from previous cesarean delivery; O30.049 Twin pregnancy, dichorionic/diamniotic, unspecified trimester; O09.819 Supervision of pregnancy resulting from assisted reproductive technology, unspecified trimester; O99.844 Bariatric surgery status complicating childbirth; E28.2 Polycystic ovarian syndrome; O99.284 Endocrine, nutritional and metabolic diseases complicating childbirth; Z88.0 Allergy status to penicillin

== ENCOUNTER → 2022-04-20 | Outpatient (REF) | payer OTHER, BC ==
[~2022-04-20] MED LIST changes: +ACET-897 PO; +COLA100C5 PO; +IBUP80TA PO; +PRENTAB9 PO
[2022-04-20 17:56] LABS: BASO % 0.4 % (0.0-1.0); EOS # 0.1 10^3/uL (0.0-0.5); EOS % 1.3 % (0.0-3.0); HEMATOCRIT 39.4 % (36.0-47.0); HEMOGLOBIN 12.9 g/dl (12.0-15.5); LYMPH # 1.5 10^3/uL (1.5-5.0); LYMPH % 31.9 % (24.0-44.0); MEAN CORPUSCULAR HEMOGLOBIN 28.9 pg (27.0-33.0); MEAN CORPUSCULAR HGB CONC 32.7 g/dl (32.0-36.5); MEAN CORPUSCULAR VOLUME 88.1 fl (80.0-96.0); MONO # 0.4 10^3/uL (0.0-0.8); MONO % 7.7 % (2.0-8.0); NEUTROPHILS # 2.8 10^3/uL (1.5-8.5); NEUTROPHILS % 58.3 % (36.0-66.0); PLATELET COUNT, AUTOMATED 278 10^3/uL (150-450); RED BLOOD COUNT 4.47 10^6/uL (4.00-5.40); WHITE BLOOD COUNT 4.8 10^3/uL (4.0-10.0)
[2022-04-20 18:08] LABS: PERCENT SATURATION 12.6 % (13.2-45.0)
[2022-04-20 18:09] LABS: THYROID STIMULATING HORMONE 1.416 uIU/ML (0.55-4.78)
[2022-04-20 18:53] LABS: HEMOGLOBIN A1c 5.2 % (4.0-6.0)
== END ==
LOC: M LAB REF 17:06
PROVIDERS: ATTEND Pediatrics
DX: R73.03 Prediabetes (principal); E03.9 Hypothyroidism, unspecified; E61.1 Iron deficiency

== ENCOUNTER → 2022-06-26 | Outpatient (REF) | payer OTHER, BC | LOC: M LAB REF 17:08 | PROVIDERS: ATTEND Pediatrics | DX: E03.9 Hypothyroidism, unspecified (principal) ==

== ENCOUNTER → 2022-09-14 | Outpatient (REF) | payer OTHER, BC | LOC: M SFHCWAGY 10:06 | PROVIDERS: ATTEND Obstetrics & Gynecology | DX: Z12.4 Encounter for screening for malignant neoplasm of cervix (principal) ==

== ENCOUNTER → 2022-10-17 | Outpatient (REF) | payer OTHER, BC ==
[2022-10-17 12:41] LABS: BASO # 0.1 10^3/uL (0.0-0.2); BASO % 0.8 % (0.0-1.0); EOS # 0.1 10^3/uL (0.0-0.5); EOS % 1.4 % (0.0-3.0); HEMATOCRIT 44.6 % (36.0-47.0); LYMPH # 1.9 10^3/uL (1.5-5.0); LYMPH % 29.6 % (24.0-44.0); MEAN CORPUSCULAR HEMOGLOBIN 30.5 pg (27.0-33.0); MEAN CORPUSCULAR HGB CONC 33.6 g/dl (32.0-36.5); MEAN CORPUSCULAR VOLUME 90.8 fl (80.0-96.0); MONO # 0.5 10^3/uL (0.0-0.8); MONO % 7.6 % (2.0-8.0); NEUTROPHILS % 60.3 % (36.0-66.0); PLATELET COUNT, AUTOMATED 317 10^3/uL (150-450); RED BLOOD COUNT 4.91 10^6/uL (4.00-5.40); WHITE BLOOD COUNT 6.6 10^3/uL (4.0-10.0)
[2022-10-17 13:02] LABS: HEMOGLOBIN A1c 5.2 % (4.0-6.0)
[2022-10-17 13:06] LABS: TOTAL IRON BINDING CAPACITY 329 UG/DL (250-425)
[2022-10-17 13:07] LABS: IRON (FE) 121 UG/DL (50-170); PERCENT SATURATION 36.8 % (13.2-45.0)
[2022-10-17 13:08] LABS: ALBUMIN 3.9 G/DL (3.2-5.2); ALKALINE PHOSPHATASE 114 U/L (46-116); ALT/SGPT 12 U/L (7.0-40); AST/SGOT 12 U/L (<34); BILIRUBIN,TOTAL 0.3 MG/DL (0.3-1.2); BLOOD UREA NITROGEN 14 MG/DL (9-23); CALCIUM LEVEL 8.4 MG/DL (8.5-10.1); CARBON DIOXIDE LEVEL 30 MMOL/L (20-31); CHLORIDE LEVEL 105 MMOL/L (98-107); CHOLESTEROL LEVEL 151 MG/DL (<200); CREATININE FOR GFR 0.52 MG/DL (0.55-1.30); GLOMERULAR FILTRATION RATE > 60.0 (>60); GLUCOSE, FASTING 80 MG/DL (60-100); HDL CHOLESTEROL 75.4 MG/DL (>40); MAGNESIUM LEVEL 2.1 MG/DL (1.8-2.4); NON-HDL-C 75.6 MG/DL; POTASSIUM SERUM 4.5 MMOL/L (3.5-5.1); SODIUM LEVEL 139 MMOL/L (136-145); TRIGLYCERIDES LEVEL 108 MG/DL (<150)
[2022-10-17 13:11] LABS: FERRITIN 54.3 NG/ML (7.3-270.7); THYROID STIMULATING HORMONE 1.212 uIU/ML (0.55-4.78)
[2022-10-17 13:12] LABS: FOLATE > 24.0 NG/ML (>5.4)
[2022-10-17 13:13] LABS: VITAMIN B12 LEVEL 796 PG/ML (211-911)
== END ==
LOC: M LAB REF 12:12
PROVIDERS: ATTEND Pediatrics
DX: Z98.84 Bariatric surgery status (principal); E03.9 Hypothyroidism, unspecified; R73.03 Prediabetes; E55.9 Vitamin D deficiency, unspecified; Z68.39 Body mass index [BMI] 39.0-39.9, adult

== ENCOUNTER → 2023-01-25 | Outpatient (REF) | payer OTHER, BC ==
[2023-01-25 17:23] LABS: BASO % 0.4 % (0.0-1.0); EOS # 0.1 10^3/uL (0.0-0.5); EOS % 0.7 % (0.0-3.0); HEMOGLOBIN 14.6 g/dl (12.0-15.5); IRON (FE) 93 UG/DL (50-170); LYMPH # 1.9 10^3/uL (1.5-5.0); MEAN CORPUSCULAR HEMOGLOBIN 29.6 pg (27.0-33.0); MEAN CORPUSCULAR HGB CONC 32.4 g/dl (32.0-36.5); MEAN CORPUSCULAR VOLUME 91.1 fl (80.0-96.0); MONO # 0.6 10^3/uL (0.0-0.8); MONO % 8.1 % (2.0-8.0); NEUTROPHILS # 4.8 10^3/uL (1.5-8.5); NEUTROPHILS % 64.5 % (36.0-66.0); PLATELET COUNT, AUTOMATED 301 10^3/uL (150-450); RED BLOOD COUNT 4.94 10^6/uL (4.00-5.40); WHITE BLOOD COUNT 7.4 10^3/uL (4.0-10.0)
[2023-01-25 17:24] LABS: ALBUMIN 4.3 G/DL (3.2-5.2); ALKALINE PHOSPHATASE 98 U/L (46-116); ALT/SGPT 14 U/L (7.0-40); AST/SGOT 18 U/L (<34); BILIRUBIN,TOTAL 0.3 MG/DL (0.3-1.2); BLOOD UREA NITROGEN 8 MG/DL (9-23); CALCIUM LEVEL 9.2 MG/DL (8.5-10.1); CARBON DIOXIDE LEVEL 25 MMOL/L (20-31); CHLORIDE LEVEL 105 MMOL/L (98-107); CHOLESTEROL LEVEL 160 MG/DL (<200); CHOLESTEROL RISK RATIO 1.86 (<5); CREATININE FOR GFR 0.46 MG/DL (0.55-1.30); GLOMERULAR FILTRATION RATE > 60.0 (>60); GLUCOSE, FASTING 85 MG/DL (60-100); HDL CHOLESTEROL 85.9 MG/DL (>40); LDL CHOLESTEROL 50.3 MG/DL (<100); MAGNESIUM LEVEL 2.2 MG/DL (1.8-2.4); NON-HDL-C 74.1 MG/DL; PERCENT SATURATION 27.2 % (13.2-45.0); POTASSIUM SERUM 4.2 MMOL/L (3.5-5.1); SODIUM LEVEL 138 MMOL/L (136-145); TOTAL IRON BINDING CAPACITY 342 UG/DL (250-425); TOTAL PROTEIN 7.6 G/DL (5.7-8.2); TRIGLYCERIDES LEVEL 119 MG/DL (<150)
[2023-01-25 17:25] LABS: TOTAL 25(OH) VITAMIN D 24.7 NG/ML (20.0-100.0); VITAMIN B12 LEVEL 900 PG/ML (211-911)
[2023-01-25 17:26] LABS: FERRITIN 79.7 NG/ML (7.3-270.7); THYROID STIMULATING HORMONE 2.243 uIU/ML (0.55-4.78)
[2023-01-25 17:28] LABS: FOLATE > 24.0 NG/ML (>5.4); PROGESTERONE 15.99 NG/ML
[2023-01-25 17:29] LABS: HEMOGLOBIN A1c 4.7 % (4.0-6.0)
[2023-01-25 17:47] LABS: HCG, SERUM QUANTITATIVE 8376.9 MIU/ML (<4.2)
== END ==
LOC: M LAB REF 16:13
PROVIDERS: ATTEND Pediatrics
DX: Z33.1 Pregnant state, incidental (principal); E03.9 Hypothyroidism, unspecified; Z98.84 Bariatric surgery status; Z68.39 Body mass index [BMI] 39.0-39.9, adult; E55.9 Vitamin D deficiency, unspecified; R73.03 Prediabetes

== ENCOUNTER → 2023-02-15 | Outpatient (CLI) | payer OTHER ==
[2023-02-15 08:25] LABS: HEMATOCRIT 41.9 % (36.0-47.0); HEMOGLOBIN 14.1 g/dl (12.0-15.5); MEAN CORPUSCULAR HGB CONC 33.7 g/dl (32.0-36.5); MEAN CORPUSCULAR VOLUME 89.1 fl (80.0-96.0); PLATELET COUNT, AUTOMATED 303 10^3/uL (150-450); WHITE BLOOD COUNT 8.6 10^3/uL (4.0-10.0)
[2023-02-15 09:21] LABS: HIV 1&2 SCREEN NEGATIVE (NEGATIVE)
[2023-02-15 09:29] LABS: HEPATITIS C VIRUS ABY INDEX 0.04 INDEX (<0.8)
[2023-02-15 11:11] LABS: GC DNA AMPLIFICATION NEGATIVE (NEGATIVE)
== END ==
LOC: M LAB 07:23
PROVIDERS: ATTEND Specialist
DX: Z34.81 Encounter for supervision of other normal pregnancy, first trimester (principal)

== ENCOUNTER → 2023-02-25 | Outpatient (REF) | payer OTHER ==
[2023-02-25 23:14] LABS: CREATININE,RANDOM URINE 13.4 MG/DL
[2023-02-25 23:38] LABS: TOTAL PROTEIN,RANDOM URINE < 6.0 MG/DL (0.0-14.0)
== END ==
LOC: M PLALAB 09:40
PROVIDERS: ATTEND Obstetrics & Gynecology
DX: R82.90 Unspecified abnormal findings in urine (principal); Z87.59 Personal history of other complications of pregnancy, childbirth and the puerperium

== ENCOUNTER → 2023-03-05 | Outpatient (CLI) | payer OTHER | LOC: M WHC 06:57 | PROVIDERS: ATTEND Obstetrics & Gynecology | DX: Z34.91 Encounter for supervision of normal pregnancy, unspecified, first trimester (principal) ==

== ENCOUNTER → 2023-03-09 | Outpatient (CLI) | payer OTHER | LOC: M LAB 15:38 | PROVIDERS: ATTEND Obstetrics & Gynecology | DX: Z34.80 Encounter for supervision of other normal pregnancy, unspecified trimester (principal) ==

== ENCOUNTER → 2023-04-26 | Outpatient (CLI) | payer OTHER | LOC: M RAD 15:03 | PROVIDERS: ATTEND Obstetrics & Gynecology | DX: O34.211 Maternal care for low transverse scar from previous cesarean delivery (principal); Z3A.18 18 weeks gestation of pregnancy ==

== ENCOUNTER → 2023-05-31 | Outpatient (CLI) | payer OTHER ==
[2023-05-31 18:22] LABS: HEMATOCRIT 37.8 % (36.0-47.0); HEMOGLOBIN 12.6 g/dl (12.0-15.5); MEAN CORPUSCULAR HEMOGLOBIN 30.2 pg (27.0-33.0); MEAN CORPUSCULAR HGB CONC 33.3 g/dl (32.0-36.5); MEAN CORPUSCULAR VOLUME 90.6 fl (80.0-96.0); PLATELET COUNT, AUTOMATED 287 10^3/uL (150-450); RED BLOOD COUNT 4.17 10^6/uL (4.00-5.40); WHITE BLOOD COUNT 9.5 10^3/uL (4.0-10.0)
== END ==
LOC: M PLALAB 15:30
PROVIDERS: ATTEND Specialist
DX: Z34.82 Encounter for supervision of other normal pregnancy, second trimester (principal)

== ENCOUNTER → 2023-05-31 | Outpatient (CLI) | payer OTHER | LOC: M WHC 14:41 | PROVIDERS: ATTEND Specialist | DX: Z34.82 Encounter for supervision of other normal pregnancy, second trimester (principal); Z3A.24 24 weeks gestation of pregnancy ==

== ENCOUNTER → 2023-06-26 | Outpatient (REF) | payer OTHER | LOC: M LAB REF 12:15 | PROVIDERS: ATTEND Pediatrics | DX: E03.9 Hypothyroidism, unspecified (principal) ==

== ENCOUNTER → 2023-06-28 | Outpatient (CLI) | payer OTHER | LOC: M WHC 07:50 | PROVIDERS: ATTEND Advanced Practice Midwife | DX: O36.5990 Maternal care for other known or suspected poor fetal growth, unspecified trimester, not applicable or unspecified (principal); Z3A.28 28 weeks gestation of pregnancy ==

== ENCOUNTER → 2023-06-29 | Outpatient (CLI) | payer OTHER ==
[2023-06-29 16:55] LABS: ALBUMIN 2.9 G/DL (3.2-5.2); ALKALINE PHOSPHATASE 99 U/L (46-116); ALT/SGPT < 9 U/L (7.0-40); AST/SGOT 8 U/L (<34); BILIRUBIN,TOTAL 0.2 MG/DL (0.3-1.2); BLOOD UREA NITROGEN 9 MG/DL (9-23); CALCIUM LEVEL 9.2 MG/DL (8.5-10.1); CARBON DIOXIDE LEVEL 22 MMOL/L (20-31); CHLORIDE LEVEL 106 MMOL/L (98-107); CREATININE FOR GFR 0.49 MG/DL (0.55-1.30); GLOMERULAR FILTRATION RATE > 60.0 (>60); GLUCOSE, FASTING 93 MG/DL (60-100); SODIUM LEVEL 136 MMOL/L (136-145); TOTAL PROTEIN 6.3 G/DL (5.7-8.2)
[2023-06-29 16:59] LABS: TOTAL 25(OH) VITAMIN D 51.1 NG/ML (20.0-100.0); VITAMIN B12 LEVEL 543 PG/ML (211-911)
== END ==
LOC: M LAB 15:47
PROVIDERS: ATTEND Advanced Practice Midwife
DX: O99.842 Bariatric surgery status complicating pregnancy, second trimester (principal); Z3A.00 Weeks of gestation of pregnancy not specified

== ENCOUNTER → 2023-08-09 | Outpatient (CLI) | payer OTHER | LOC: M WHC 14:24 | PROVIDERS: ATTEND Advanced Practice Midwife | DX: O99.843 Bariatric surgery status complicating pregnancy, third trimester (principal); O09.523 Supervision of elderly multigravida, third trimester; Z3A.32 32 weeks gestation of pregnancy ==

== ENCOUNTER → 2023-08-14 | Outpatient (CLI) | payer OTHER | LOC: M WHC 07:20 | PROVIDERS: ATTEND Advanced Practice Midwife | DX: O36.5993 Maternal care for other known or suspected poor fetal growth, unspecified trimester, fetus 3 (principal); Z3A.35 35 weeks gestation of pregnancy; O32.2XX0 Maternal care for transverse and oblique lie, not applicable or unspecified ==

== ENCOUNTER → 2023-08-19 | Outpatient (CLI) | payer OTHER | LOC: M WHC 08:13 | PROVIDERS: ATTEND Advanced Practice Midwife | DX: O36.5990 Maternal care for other known or suspected poor fetal growth, unspecified trimester, not applicable or unspecified (principal) ==

== ENCOUNTER → 2023-08-21 | Outpatient (REF) | payer OTHER | LOC: M SFHCWAGY 09:53 | PROVIDERS: ATTEND Obstetrics & Gynecology | DX: Z36.85 Encounter for antenatal screening for Streptococcus B (principal); Z3A.36 36 weeks gestation of pregnancy ==

== ENCOUNTER 2023-08-27 05:14 | Inpatient (IN) | payer OTHER ==
[~2023-08-27] VITALS: Ht 160 cm; Wt 97.7 kg
[2023-08-27] VITALS (8 sets, daily range): BP systolic 119–139; BP diastolic 67–84; TEMP 98.1; O2SAT 95–100
[2023-08-27 06:08] LABS: BASO % 0.1 % (0.0-1.0); EOS % 0.2 % (0.0-3.0); HEMATOCRIT 38.9 % (36.0-47.0); HEMOGLOBIN 13.2 g/dl (12.0-15.5); LYMPH # 1.7 10^3/uL (1.5-5.0); LYMPH % 20.6 % (24.0-44.0); MEAN CORPUSCULAR HGB CONC 33.9 g/dl (32.0-36.5); MEAN CORPUSCULAR VOLUME 88.4 fl (80.0-96.0); MONO # 0.5 10^3/uL (0.0-0.8); NEUTROPHILS % 72.6 % (36.0-66.0); PLATELET COUNT, AUTOMATED 251 10^3/uL (150-450); WHITE BLOOD COUNT 8.2 10^3/uL (4.0-10.0)
[2023-08-27] MEDS: BICITRA 30ML SOLN UDC PO ONE ×2 (07:24→12:05)
[2023-08-27] MEDS: LR 1,000 ML IV ONE (07:24)
[2023-08-27] MEDS: LR 1,000 ML IV SCH ×3 (07:24→13:03)
[2023-08-27] MEDS: ceFAZolin SOD 2 GM in IV 1 EA IV ONE (07:25)
[2023-08-27] MEDS ORDERED: OXYTOCIN 30UNITS IN 0.9% NaCl 500ML IV BAG As Ordered ONE (07:26)
[2023-08-27] MEDS ORDERED: MORPHINE PRES-FREE INJ 10 MG/10 ML VIAL As Ordered ONE (07:26)
[2023-08-27] MEDS ORDERED: ONDANSETRON 4MG 2ML VIAL As Ordered ONE (07:28)
[2023-08-27] MEDS ORDERED: oxyCODONE 5MG TAB PO PRN (07:55)
[2023-08-27] MEDS ORDERED: METOCLOPRAMIDE INJ 10MG/2ML VIAL IV PRN (07:55)
[2023-08-27] MEDS ORDERED: diphenhydrAMINE 50MG/ML VIAL IV PRN (07:55)
[2023-08-27] MEDS ORDERED: fentaNYL 100 MCG/2 ML INJECTION IV PRN (07:55)
[2023-08-27] MEDS ORDERED: **NOTE PATIENT COMMENT** MISC XX SCH (07:55)
[2023-08-27] MEDS ORDERED: MEPERIDINE 25 MG/ML 1ML VIAL IV PRN (07:55)
[2023-08-27] MEDS ORDERED: NALOXONE INJ 0.4MG/1ML VIAL IV PRN ×2 (07:55)
[2023-08-27] MEDS ORDERED: ONDANSETRON 4MG 2ML VIAL IV PRN (07:55)
[2023-08-27] MEDS ORDERED: ACETAMINOPHEN 1000MG 100ML IV BAG As Ordered ONE (08:22)
[2023-08-27] MEDS ORDERED: OXYTOCIN INJ 10UNITS/ML 1ML VIAL As Ordered ONE (08:34)
[2023-08-27] MEDS ORDERED: PHENYLephrine 500MCG 5ML (100MCG/ML) SYRINGE As Ordered ONE (08:58)
[2023-08-27] MEDS ORDERED: ePHEDrine SULFATE 25 MG/5 ML(5MG/ML) SYRINGE As Ordered ONE (08:58)
[2023-08-27 09:00] LABS: HEPATITIS C VIRUS ABY INDEX < 0.02 INDEX (<0.8)
[2023-08-27] MEDS ORDERED: METHYLERGONOVINE MALEATE 0.2MG/ML 1ML VIAL IM PRN (09:20)
[2023-08-27] MEDS ORDERED: ONDANSETRON 4MG ORAL DISINTEGRATING TAB PO PRN (09:20)
[2023-08-27] MEDS ORDERED: MOM 30ML SUSPENSION UDC PO PRN (09:20)
[2023-08-27] MEDS ORDERED: RHO(D) IMMUNE GLOBULIN/MALTOSE 500MCG(2500IU)/2.2ML VIAL (WINRHO) IM SCH (09:20)
[2023-08-27] MEDS: OXYTOCIN DRIP 30 UNITS in IV 1 EA IV SCH (09:20)
[2023-08-27] MEDS ORDERED: CALCIUM CARBONATE 500 MG CHEW U/D PO PRN (09:20)
[2023-08-27] MEDS ORDERED: METF500T13 PO (11:54)
[2023-08-27] MEDS ORDERED: SERT-141 PO (11:54)
[2023-08-27] MEDS: SERTRALINE HCL 50 MG TAB PO SCH (13:03)
[2023-08-27] MEDS: SLF 3 ML SYR IV SCH (14:00)
[2023-08-27] MEDS: PERCOCET 5MG/325MG TAB PO PRN (19:23)
[2023-08-27] MEDS: DOCUSATE SODIUM 100MG CAPSULE PO SCH (20:18)
[2023-08-28 02:00] VITALS: BP 129/66; O2SAT 96
[2023-08-28 06:40] VITALS: BP 126/76; O2SAT 98
[2023-08-28] MEDS: SIMETHICONE 80MG CHEW TAB PO PRN (06:53)
[2023-08-28 07:01] LABS: HEMATOCRIT 31.3 % (36.0-47.0); MEAN CORPUSCULAR HEMOGLOBIN 30.1 pg (27.0-33.0); MEAN CORPUSCULAR HGB CONC 33.5 g/dl (32.0-36.5); MEAN CORPUSCULAR VOLUME 89.7 fl (80.0-96.0); PLATELET COUNT, AUTOMATED 221 10^3/uL (150-450); RED BLOOD COUNT 3.49 10^6/uL (4.00-5.40); WHITE BLOOD COUNT 8.3 10^3/uL (4.0-10.0)
[2023-08-28 07:05] LABS: HEMOGLOBIN 10.5 g/dl (12.0-15.5)
[2023-08-28] MEDS: FERROUS SULFATE 325MG TAB PO SCH (08:35)
[2023-08-28] MEDS: PRENATAL VITAMINS CHEWABLE TABLET PO SCH (08:35)
[2023-08-28 10:00] VITALS: BP 136/79; O2SAT 96
[2023-08-28 14:00] VITALS: BP 112/76; O2SAT 95
[2023-08-28 18:00] VITALS: BP 131/70; O2SAT 97
[2023-08-28] MEDS: PERCOCET 5MG/325MG TAB PO PRN (21:05)
[2023-08-28 22:00] VITALS: BP 109/71; O2SAT 100
[2023-08-29 02:00] VITALS: BP 119/68; O2SAT 96
[2023-08-29 05:57] VITALS: BP 96/62; O2SAT 100
[2023-08-29] MEDS ORDERED: MEASLES,MUMPS,RUBELLA VACCINE INJ (MMR-II) SC.IMMUN ONE (09:00)
[2023-08-29 10:00] VITALS: BP 104/70; O2SAT 97
[2023-08-29] MEDS ORDERED: ACET-683 PO (12:21)
[2023-08-29] MEDS ORDERED: COLA100C5 PO (12:21)
[2023-08-29] MEDS ORDERED: OXYC-517 PO (12:21)
== END 2023-08-29 13:55 | disposition home or self-care (01) | DRG 540 ==
LOC: M LDI 05:14 → M OBS 11:00
PROVIDERS: ADMIT Obstetrics & Gynecology; ATTEND Obstetrics & Gynecology
PROC: 10D00Z1 Extraction of Products of Conception, Low, Open Approach (ICD-10-PCS; principal; 2023-08-27 07:30)
DX: O34.211 Maternal care for low transverse scar from previous cesarean delivery (principal); O09.523 Supervision of elderly multigravida, third trimester; Z37.0 Single live birth; Z3A.37 37 weeks gestation of pregnancy; O40.3XX0 Polyhydramnios, third trimester, not applicable or unspecified; O32.1XX0 Maternal care for breech presentation, not applicable or unspecified; O13.4 Gestational [pregnancy-induced] hypertension without significant proteinuria, complicating childbirth; O36.5930 Maternal care for other known or suspected poor fetal growth, third trimester, not applicable or unspecified

== ENCOUNTER → 2023-09-23 | Outpatient (REF) | payer OTHER ==
[~2023-09-23] MED LIST changes: +METF500T13 PO; +OXYC-517 PO; +SERT-141 PO
[2023-09-23 14:10] LABS: HEMOGLOBIN 13.7 g/dl (12.0-15.5); MEAN CORPUSCULAR HGB CONC 33.4 g/dl (32.0-36.5); MEAN CORPUSCULAR VOLUME 92.8 fl (80.0-96.0); PLATELET COUNT, AUTOMATED 302 10^3/uL (150-450); RED BLOOD COUNT 4.42 10^6/uL (4.00-5.40); WHITE BLOOD COUNT 6.2 10^3/uL (4.0-10.0)
[2023-09-23 14:18] LABS: THYROID STIMULATING HORMONE 1.123 uIU/ML (0.55-4.78)
[2023-09-23 14:19] LABS: FERRITIN 40.3 NG/ML (7.3-270.7)
[2023-09-23 14:29] LABS: HEMOGLOBIN A1c 5.1 % (4.0-6.0)
== END ==
LOC: M LAB REF 12:59
PROVIDERS: ATTEND Pediatrics
DX: R73.03 Prediabetes (principal); E03.9 Hypothyroidism, unspecified; D50.9 Iron deficiency anemia, unspecified

== ENCOUNTER 2024-02-27 23:07 | Emergency (ER) | payer OTHER ==
[~2024-02-27] VITALS: Ht 160 cm; Wt 97.2 kg
[2024-02-27 23:12] VITALS: BP 154/95; TEMP 96.6; O2SAT 98
[2024-02-28] MEDS ORDERED: CLEO300C2 PO (00:29)
[2024-02-28] MEDS: CLINDAMYCIN 150MG CAPSULE PO ONE (00:30)
== END 2024-02-28 00:37 | disposition home or self-care (01) ==
LOC: M ED 23:07
DX: K02.9 Dental caries, unspecified (principal); Z88.0 Allergy status to penicillin; Z79.1 Long term (current) use of non-steroidal anti-inflammatories (NSAID); Z79.899 Other long term (current) drug therapy

== ENCOUNTER → 2024-05-11 | Outpatient (REF) | payer OTHER ==
[2024-05-11 17:33] LABS: BASO % 0.5 % (0.0-1.0); EOS # 0.1 10^3/uL (0.0-0.5); EOS % 1.7 % (0.0-3.0); HEMATOCRIT 42.5 % (36.0-47.0); HEMOGLOBIN 14.3 g/dl (12.0-15.5); LYMPH # 1.8 10^3/uL (1.5-5.0); MEAN CORPUSCULAR HEMOGLOBIN 29.1 pg (27.0-33.0); MEAN CORPUSCULAR HGB CONC 33.6 g/dl (32.0-36.5); MEAN CORPUSCULAR VOLUME 86.6 fl (80.0-96.0); MONO # 0.8 10^3/uL (0.0-0.8); MONO % 10.1 % (2.0-8.0); NEUTROPHILS # 4.7 10^3/uL (1.5-8.5); NEUTROPHILS % 63.4 % (36.0-66.0); PLATELET COUNT, AUTOMATED 299 10^3/uL (150-450); RED BLOOD COUNT 4.91 10^6/uL (4.00-5.40); WHITE BLOOD COUNT 7.5 10^3/uL (4.0-10.0)
[2024-05-11 17:47] LABS: HEMOGLOBIN A1c 5.2 % (4.0-6.0)
[2024-05-11 18:08] LABS: FERRITIN 47.8 NG/ML (7.3-270.7); FOLATE > 24.0 NG/ML (>5.4); THYROID STIMULATING HORMONE 0.956 uIU/ML (0.55-4.78)
[2024-05-11 18:09] LABS: VITAMIN B12 LEVEL 1182 PG/ML (211-911)
== END ==
LOC: M LAB REF 16:31
PROVIDERS: ATTEND Pediatrics
DX: E03.9 Hypothyroidism, unspecified (principal); R73.03 Prediabetes; K91.2 Postsurgical malabsorption, not elsewhere classified

== ENCOUNTER → 2024-05-12 | Outpatient (CLI) | payer OTHER | LOC: M LAB 14:39 | PROVIDERS: ATTEND Pediatrics | DX: K91.2 Postsurgical malabsorption, not elsewhere classified (principal) ==

== ENCOUNTER → 2024-07-27 | Outpatient (REF) | payer OTHER ==
[2024-07-29 14:47] LABS: HPV APTIMA Not Detected (Not Detected)
== END ==
LOC: M SFHCWAGY 12:48
PROVIDERS: ATTEND Obstetrics & Gynecology
DX: Z12.4 Encounter for screening for malignant neoplasm of cervix (principal); Z77.9 Other contact with and (suspected) exposures hazardous to health

== ENCOUNTER → 2024-09-09 | Outpatient (CLI) | payer OTHER | LOC: M WHC 07:53 | PROVIDERS: ATTEND Obstetrics & Gynecology | DX: N63.23 Unspecified lump in the left breast, lower outer quadrant (principal); N60.82 Other benign mammary dysplasias of left breast; Z39.1 Encounter for care and examination of lactating mother ==

== ENCOUNTER → 2024-12-15 | Outpatient (REF) | payer OTHER ==
[~2024-12-15] MED LIST changes: +CLOM50TA31 IM; -CLOM50TA9 IM
[2024-12-15 12:54] LABS: BASO # 0.0 10^3/uL (0.0-0.2); BASO % 0.7 % (0.0-1.0); EOS # 0.2 10^3/uL (0.0-0.5); EOS % 3.0 % (0.0-3.0); LYMPH # 1.2 10^3/uL (1.5-5.0); LYMPH % 21.2 % (24.0-44.0); MONO # 0.3 10^3/uL (0.0-0.8); MONO % 5.9 % (2.0-8.0); NEUTROPHILS # 3.9 10^3/uL (1.5-8.5); NEUTROPHILS % 69.0 % (36.0-66.0); PLATELET COUNT, AUTOMATED 287 10^3/uL (150-450)
[2024-12-15 13:05] LABS: ESTIMATED AVERAGE GLUCOSE 114.0 MG/DL (60-110)
[2024-12-15 13:28] LABS: ALT/SGPT 14 U/L (7.0-40); AST/SGOT 16 U/L (<34); CALCIUM LEVEL 8.7 MG/DL (8.5-10.1); CARBON DIOXIDE LEVEL 25 MMOL/L (20-31); CHLORIDE LEVEL 105 MMOL/L (98-107); CHOLESTEROL LEVEL 140 MG/DL (<200); CHOLESTEROL RISK RATIO 2.63 (<5); CREATININE FOR GFR 0.55 MG/DL (0.55-1.30); GLOMERULAR FILTRATION RATE > 90.0 (>58); IRON (FE) 59 UG/DL (50-170); LDL CHOLESTEROL 57.8 MG/DL (<100); NON-HDL-C 86.8 MG/DL; PERCENT SATURATION 16.0 % (13.2-45.0); POTASSIUM SERUM 4.2 MMOL/L (3.5-5.1); SODIUM LEVEL 142 MMOL/L (136-145); TRIGLYCERIDES LEVEL 145 MG/DL (<150)
[2024-12-15 13:30] LABS: TOTAL 25(OH) VITAMIN D 40.3 NG/ML (20.0-100.0); VITAMIN B12 LEVEL 654 PG/ML (211-911)
== END ==
LOC: M LAB REF 12:31
PROVIDERS: ATTEND Pediatrics
DX: F41.8 Other specified anxiety disorders (principal); K91.2 Postsurgical malabsorption, not elsewhere classified; R73.03 Prediabetes

== ENCOUNTER 2025-01-22 09:12 | Emergency (ER) | payer OTHER ==
[~2025-01-22] VITALS: Ht 160 cm; Wt 98.1 kg
[2025-01-22] MEDS ORDERED: LORA-1041 (09:38)
[2025-01-22] MEDS ORDERED: ZOLO100T PO (09:38)
[2025-01-22] MEDS ORDERED: HYDR-3363 (09:38)
[2025-01-22] MEDS ORDERED: METF-838 (09:38)
[2025-01-22] MEDS ORDERED: MONT10TA97 (09:38)
[2025-01-22] MEDS ORDERED: CLEO300C2 PO (12:22)
[2025-01-22 12:27] VITALS: BP 168/82; TEMP 97.7; O2SAT 98
== END 2025-01-22 12:29 | disposition home or self-care (01) ==
LOC: M ED 09:12
DX: K04.7 Periapical abscess without sinus (principal); L03.213 Periorbital cellulitis; Z79.1 Long term (current) use of non-steroidal anti-inflammatories (NSAID); Z79.2 Long term (current) use of antibiotics; Z79.899 Other long term (current) drug therapy; Z88.0 Allergy status to penicillin

== ENCOUNTER 2025-04-19 12:53 | Emergency (ER) | payer OTHER ==
[~2025-04-19] VITALS: Ht 160 cm; Wt 90.5 kg
[~2025-04-19 12:53] MED LIST changes: +HYDR-3363; +LORA-1041; +METF-838; +MONT10TA97; +ZOLO100T PO
[2025-04-19] MEDS: PERCOCET 5MG/325MG TAB PO ONE (14:45)
[2025-04-19] MEDS ORDERED: PERC5TAB12 PO (15:09)
[2025-04-19 15:34] VITALS: BP 137/77; TEMP 98.4; O2SAT 98
== END 2025-04-19 15:37 | disposition home or self-care (01) ==
LOC: M ED 12:53
DX: S20.211A Contusion of right front wall of thorax, initial encounter (principal); W00.0XXA Fall on same level due to ice and snow, initial encounter; E11.9 Type 2 diabetes mellitus without complications; I10 Essential (primary) hypertension; E28.2 Polycystic ovarian syndrome; J45.909 Unspecified asthma, uncomplicated; Z98.84 Bariatric surgery status; Z88.0 Allergy status to penicillin; Y92.009 Unspecified place in unspecified non-institutional (private) residence as the place of occurrence of the external cause; Y93.89 Activity, other specified; Y99.9 Unspecified external cause status